=== PATIENT | female | born 1945 | race Caucasian/White ===

== ENCOUNTER 2024-01-11 13:38 | Inpatient (IN) | payer OTHER, SELFPAY ==
[2024-01-11] VITALS (9 sets, daily range): BP systolic 103–169; BP diastolic 58–102
--- NOTE | 2024-01-11 10:59 | ED.GENMED ---
History of Present Illness
General
Chief Complaint: Suicidal Ideation
Source: patient, ambulance crew and police
Time Seen by Provider: 01/11/24 10:45
History of Present Illness
History of Present Illness:
78-year-old female presenting to the ER with EMS and police for evaluation after patient attempted to overdose on Lasix and Farxiga tablets. EMS states that the bottles were the sisters tablets and they were last filled on November 26. There was a
total of 15 tablets of Lasix (80 mg) and 30 tablets of Farxiga (10 mg) but patient is unsure as to the quantity of how much she took of each medication. Patient notes that her sister is noncompliant with the medication which is why there is still a
significant quantity of pills. Patient states that for the last week she has been feeling increasingly depressed and suicidal noting that she was about to get evicted and become homeless. EMS also states that patient was holding a knife to her
throat but did not cut herself with the knife. Patient has no complaints at this time other than she has the continuous urge to urinate.
Past History
Past History
ED Past Medical History: Arrthythmia (atrial fib), Cancer (Breast and Cervix), COPD, GERD, HTN, Hypercholesterolemia, Psychiatric (Anxiety) and Other (Diverticulitis, Sciatica, Hiatal hernia, )
ED Past Surgical History: Bowel resection (with Colostomy due to diverticulitis) and Gynecological (D&C, Lumpectomy left)
Social History
Tobacco: Smoker
Alcohol: Occasional
Drug: None
Personal:
Living: with family (Son)
Employment: Retired
Family History
Family History: Other (Noncontributory)
Review of Systems
Review of Systems
All Other Systems: ROS reviewed and negative except as documented in HPI and ROS
Phy Exam
Physical Exam
Physical Exam:
GENERAL: Alert , in no apparent distress
Head: Normocephalic atraumatic
EYE: pupils 3 mm bilateral, clear conjunctiva
NECK: Supple
ENT: o/p clr, mmm.
CARDIAC: Mildly tachycardic, irregularly irregular
LUNGS: Clear breath sounds bilaterally, no acute respiratory distress, no wheezes/rales/rhonchi
ABDOMEN: Soft, without focal tenderness, no r/g, no cvat
NEUROLOGICAL: Alert and oriented x 3
SKIN: Warm and dry, skin intact.
MUSCULOSKELETAL: well perfused.
PSYCH: Normal and appropriate interaction.
Scores
Heart Failure Risk
Heart Failure Risk Score: Not Applicable
Heart Score for Chest Pain Patients
STEMI patient?: Not applicable
Withdrawal Assessment of Alcohol
Withdrawal Assessment Completed?: Not applicable
Course
Orders/Labs/Results
Orders:
Orders
01/11/24 10:52
Electrocardiogram (*1) Urgent
Reason for Study: Chest Pain
01/11/24 10:53
EKG- Treatment ONCE
01/11/24 10:55
Bedside Glucose- Treatment ONCE
01/11/24 11:06
Crisis Consult Urgent
Reason for Consult: SI
1:1 Observation - Suicide/ Violent Behavior As Directed
01/11/24 11:14
Basic Metabolic Panel Urgent
Complete Blood Count/With Diff Urgent
PTT Urgent
Prothrombin Time Urgent
01/11/24 11:30
Urinalysis Reflex To Culture Urgent
Date Specimen was Collected: 01/11/24
Time Specimen was Collected: 11:28
Urine Drug Abuse Screen Urgent
Date Specimen was Collected: 01/11/24
Time Specimen was Collected: 11:29
01/11/24 11:49
Acetaminophen Urgent
Alcohol Urgent
Comprehensive Metabolic Panel Urgent
Salicylate Urgent
Abnormal Lab Results
01/11/24 01/11/24 01/11/24
11:14 11:18 11:30
RBC 5.47 H 10^6/uL
(4.20-5.40)
RDW 15.7 H %
(11.5-14.5)
MPV 11.4 H fL
(7.4-10.4)
Absolute Neuts (auto) 7.1 H 10^3/uL
(1.4-6.5)
Absolute Lymphs (auto) 0.6 L 10^3/uL
(1.2-3.4)
Neutrophils % 85.4 H %
(42.2-75.2)
Lymphocytes % 7.5 L %
(20.5-51.1)
Carbon Dioxide 19 L mmol/L
(30)
BUN 20 H mg/dl
(01-16)
Creatinine
Glucose 125 H mg/dl
(70-99)
Alkaline Phosphatase
Total Protein
Urine Ketones 2+ A
(Negative)
Urine Glucose 1+ A
(Negative)
Salicylates
Acetaminophen
POC Glucose 132 H mg/dl
(70-99)
01/11/24
11:49
RBC
RDW
MPV
Absolute Neuts (auto)
Absolute Lymphs (auto)
Neutrophils %
Lymphocytes %
Carbon Dioxide 18 L mmol/L
(30)
BUN 19 H mg/dl
(01-16)
Creatinine 1.1 H mg/dL
(0.6-1.0)
Glucose 125 H mg/dl
(70-99)
Alkaline Phosphatase 138 H U/L
(38-126)
Total Protein 8.4 H g/dl
(6.3-8.2)
Urine Ketones
Urine Glucose
Salicylates < 1.0 L mg/dl
(2.0-20.0)
Acetaminophen < 10 L ug/ml
(10-30)
POC Glucose
01/11/24 11:14
01/11/24 11:49
Vital Signs
Initial and Last Documented VS:
Initial Vital Signs
Temp Pulse Resp BP Pulse Ox
98.2 F 86 23 169/84 96
01/11/24 11:04 01/11/24 11:04 01/11/24 11:04 01/11/24 11:04 01/11/24 11:04
Last Documented Vital Signs
Temp Pulse Resp BP Pulse Ox
98.2 F 87 26 165/102 95
01/11/24 11:04 01/11/24 12:30 01/11/24 12:30 01/11/24 12:30 01/11/24 12:30
MDM/Problems Addressed
Differential Diagnosis Includes:
Intentional overdose, electrolyte disturbance, no concern for infectious etiology
MDM/Problems Addressed:
78-year-old female presenting the emergency department for intentional overdose. Patient could have taken up to 15 total tablets of 80 mg Lasix and 30 tablets of 10 mg Farxiga. She is currently mildly tachycardic but otherwise hemodynamically
stable. Patient will likely require admission for monitoring of her electrolytes. She will also need psychiatry consult as patient had plan and intent to harm herself. Patient also appears to be in new onset atrial flutter. This can be further
evaluated on an inpatient basis. Lab work ordered. Patient on satellite project site monitor and placed on one-to-one observation.
*Pulse Oximetry
Patient hypoxic: no
*EKG
Interpreted by ED Provider?: Yes
Comparison EKG: changes noted
Heart Rate: 105
Rate: tachycardiac
Rhythm: atrial flutter
[place]: normal axis
Ischemia: no ischemia
*Police Crime Scene Technician Interpretation
Rate: tachycardiac
Rhythm: atrial flutter
*Critical Care Note
Total Time (30-74mins, 75-104mins- exclusive of procedures): Not Applicable
Data Reviewed
Review of Other/Old Records Reveals: Labs
Source: patient
Patient Management
Discussion with other providers: Hospitalist
Escalation/DeEscalation of care consider admission/obs:
Due to concern for electrolyte disturbance and potential renal dysfunction will admit patient for further medical care. Psychiatry can be consulted as patient will likely need further health treatment due to her intentional overdose. Hospitalist
team was notified and accepts for continued evaluation and treatment. Patient remains hemodynamically stable.
ED Attending Note
-
Portions of this chart may have been created with voice recognition software.� Occasional wrong word or��sound alike� substitutions may have occurred due to the inherent limitations of voice recognition software.
Discharge Plan
Departure
Patient Disposition: Admit
Date of Disposition: 01/11/24
Time of Disposition: 11:49
Presentation/result/management discussed w/ accepting MD/DO: Hospitalist
Discharge Problem:
Intentional overdose
Prescriptions:
No Action
alprazolam 0.5 MG tablet
0.5 mg PO DAILYPRN PRN (Reason: anxiety)
hydrochlorothiazide 25 mg Tablet
25 mg PO DAILY
Artificial Tears (PF) Dropperette
1 drp BOTH EYES QIDPRN PRN (Reason: dry)
Interventions
Interventions:
*Risk Screen - Suicide Last Done: 01/11/24 11:05
*General Assessment Last Done: 01/11/24 11:12
*Neglect/Abuse Screening Last Done: 01/11/24 11:12
ED- Fall Risk Assessment Last Done: 01/11/24 11:10
*ED COVID-19 Vaccine History Last Done: 01/11/24 11:10
ED- Cardiac Assessment Last Done: 01/11/24 11:09
ED- Neurological Assessment Last Done: 01/11/24 11:08
ED-Psychological Assessment Last Done: 01/11/24 11:09
ED- Pulmonary Assessment Last Done: 01/11/24 11:08
Discharge Date and Time
Print Language: TAMAZIGHT
[2024-01-11 11:20] LABS: Glucose - Point of Care 132 mg/dl (70-99)
[2024-01-11 11:27] LABS: % Basophils 0.7 % (0-2); % Eosinophils 0.4 % (0-6); % Immature Granulocytes 0.2 % (0-0.5); % Lymphocytes 7.5 % (20.5-51.1); % Monocytes 5.8 % (1.7-9.3); % Neutrophils 85.4 % (42.2-75.2); Absolute Basophils 0.1 10^3/uL (0-0.2); Absolute Lymphocytes 0.6 10^3/uL (1.2-3.4); Absolute Monocytes 0.5 10^3/uL (0.1-0.6); Absolute Neutrophils 7.1 10^3/uL (1.4-6.5); Hematocrit 45.3 % (37.0-47.0); Hemoglobin 15.6 g/dL (12.0-16.0); Mean Corp Hgb Conc. 34.4 g/dL (33.0-37.0); Mean Corpuscular Hgb 28.5 pg (27.0-31.0); Mean Corpuscular Volume 82.8 fL (81.0-99.0); Mean Platelet Volume 11.4 fL (7.4-10.4); Nucleated Red Blood Cells % 0 %; Platelet Count 291 10^3/uL (130-400); Red Blood Cell Count 5.47 10^6/uL (4.20-5.40); Red Cell Dist. Width 15.7 % (11.5-14.5); White Blood Cell Count 8.3 10^3/uL (4.8-10.8)
[2024-01-11 11:31] LABS: INR 1.13; PT 14.6 Sec (11.4-14.6)
[2024-01-11 11:32] LABS: APTT 28.5 Sec (23.4-35.0)
--- NOTE | 2024-01-11 11:34 | EDRN ---
Pt called her sister; her purse is at her sister's
[2024-01-11 11:52] LABS: Blood Urea Nitrogen 20 mg/dl (7-17); Calcium 9.5 mg/dl (8.4-10.2); Carbon Dioxide 19 mmol/L (22-30); Chloride 103 mmol/L (98-107); Glucose 125 mg/dl (70-99); Sodium 137 mmol/L (135-145); eGFR 56.95
[2024-01-11 12:09] LABS: ALT (SGPT) 14 U/L (0-35); AST (SGOT) 25 U/L (14-36); Alkaline Phosphatase 138 U/L (38-126); Blood Urea Nitrogen 19 mg/dl (7-17); Calcium 9.8 mg/dl (8.4-10.2); Carbon Dioxide 18 mmol/L (22-30); Chloride 103 mmol/L (98-107); Glucose 125 mg/dl (70-99); Potassium 3.5 mmol/L (3.5-5.1); Sodium 139 mmol/L (135-145); Total Bilirubin 0.9 mg/dl (0.2-1.3); Total Protein 8.4 g/dl (6.3-8.2)
[2024-01-11 12:14] LABS: Urine Albumin Negative (Neg - Trace); Urine Bilirubin Negative (Negative); Urine Character Clear (Clear); Urine Color Yellow; Urine Glucose 1+ (Negative); Urine Ketone 2+ (Negative); Urine Leukocyte Negative (Negative); Urine Nitrite Negative (Negative); Urine Occult Blood Negative (Negative); Urine Urobilinogen Negative (Neg - 1+); Urine pH 6.5 (5.0-9.0)
[2024-01-11 12:27] LABS: Amphetamines Negative (Negative); Barbiturates Negative (Negative); Benzodiazepines Negative (Negative); Buprenorphine Negative (Negative); Cocaine Negative (Negative); Marijuana Negative (Negative); Methadone Negative (Negative); Methamphetamines Negative (Negative); Opiates Negative (Negative); Phencyclidine Negative (Negative); Tricyclic Antidepressants Negative (Negative)
[2024-01-11 12:30] LABS: Acetaminophen < 10 ug/ml (10-30); Alcohol None Detected; Salicylate < 1.0 mg/dl (2.0-20.0)
--- NOTE | 2024-01-11 13:36 | HPS.HSE ---
Family Physician
-
Family Physician: Emre Gabriel
Chief Complaint
-
Intentional overdose
History of Present Illness
Patient is 78 years old female who presents to the emergency room after reported intentional overdose presumably with Lasix and Farxiga tablets. According to EMS patient took medications belonged to her sister. There was a total of 15 tablets of
Lasix 80 mg in 20 tablets of Farxiga 10 mg filled on November 26. Patient herself unsure amount of medications she ingested. Patient got upset with the message of possible infection and become homeless. EMS also stated the patient was holding a knife
to her throat but had no self-inflicted injuries on arrival.
At the time of my examination patient is calm with no evidence of distress and denies any suicidal ideation. She could not recall name of medications on number of pills she took.
Medical History
Past Medical History
Past Medical History: Reports Arrhythmia, COPD, HTN and Psychiatric (Anxiety)
Past Surgical History: Reports Gynocological and Other (Complicated diverticulitis with abscess and obstruction requiring colostomy)
Social History
Tobacco: Non-smoker
Alcohol: None
Employment: Not Employed
Family History
Family History: Not pertinent
Allergies / Home Medications
Allergies reflects when Allergies were last updated in [employer].
Home Medications with original date entered in [employer]
Allergy/Medication List:
Allergies
Allergy/AdvReac Type Severity Reaction Status Date / Time
lorazepam [From Ativan] Allergy Unknown Verified 02/16/20 06:46
Home Medications
alprazolam 0.5 mg tablet 0.5 mg PO DAILYPRN PRN anxiety 01/23/19
dextran 70-hypromellose eye drops in a dropperette (Artificial Tears (PF) drops in a dropperette) 1 drp BOTH EYES QIDPRN PRN dry 01/11/24
hydrochlorothiazide 25 mg tablet 25 mg PO DAILY 01/11/24
Review of Systems
-
A 12 point ROS was completed and negative except as noted: Yes
Physical Exam
Vital Signs
Vital Signs
Temp Pulse Resp BP Pulse Ox
98.2 F 88 27 139/75 95
01/11/24 11:04 01/11/24 13:15 01/11/24 13:15 01/11/24 13:00 01/11/24 12:30
Physical Exam
General: Well Developed, Well Nourished and No Apparent Distress
HEENT: NormoCephalic, Moist mucous membranes and Atraumatic
Respiratory: Clear
Cardiac: S1/S2 and Regular Rhythm; No Murmur or Rub
GI: Soft, Non Tender, Non Distended and Normal Bowel Sounds; No Organomegaly
Rectal: Deferred by Provider
Musculoskeletal: No Clubbing, No Cyanosis and No Edema
Skin: No Rash
Neuro: Nonfocal/grossly intact
Laboratory Results
-
01/11/24 11:14
01/11/24 11:49
Laboratory Results
PT 14.6 Sec (11.4-14.6) 01/11/24 11:14
INR 1.13 01/11/24 11:14
APTT 28.5 Sec (23.4-35.0) 01/11/24 11:14
Total Bilirubin 0.9 mg/dl (0.2-1.3) 01/11/24 11:49
AST 25 U/L (14-36) 01/11/24 11:49
ALT 14 U/L (0-35) 01/11/24 11:49
Alkaline Phosphatase 138 U/L (38-126) H 01/11/24 11:49
Data Reviewed
-
Lab Data: Labs Reviewed by me
Impression/Plan
-
IMPRESSION:
Intentional overdose reportedly with multiple pills of Lasix and Farxiga.
Increased anion gap metabolic acidosis.
Paroxysmal a flutter on admission ECG
Conditions prior to admission:
Hypertension.
COPD as per history, although not on regimen prior to presentation
History of complicated diverticulitis with colonic obstruction.
Anxiety
PLAN:
Suicidal attempt with intentional overdose.
Currently appropriate with no suicidal ideation.
Continue suicidal precautions
Psychiatry consultation
Continue alprazolam
Intentional overdose with Lasix and Farxiga.
Monitor closely.
Noted with increased anion gap metabolic acidosis.
Continue IV fluids
Follow CMP
Paroxysmal atrial flutter.
Asymptomatic
Most recent echocardiogram 2019 with preserved biventricular function and no valvular abnormalities.
Patient is not on any AV shahla or antiarrhythmics medications prior to admission
Monitor on telemetry
Serial ECG.
Echocardiogram
Essential hypertension
Monitor BP
With reported overdose with loop diuretics and SGLT2 will hold further HCTZ.
Full code.
DVT prophylaxis heparin
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
[2024-01-11] MEDS: NSS 1000 IV (18:10)
[2024-01-11] MEDS: HEPARIN 5000 UNITS SC (20:19)
[2024-01-12 03:00] VITALS: BP 107/72
[2024-01-12] MEDS: NSS 1000 IV ×2 (04:16→17:52)
[2024-01-12 07:02] LABS: % Basophils 1.3 % (0-2); % Eosinophils 2.8 % (0-6); % Immature Granulocytes 0.4 % (0-0.5); % Lymphocytes 16.7 % (20.5-51.1); % Monocytes 9.6 % (1.7-9.3); % Neutrophils 69.2 % (42.2-75.2); Absolute Basophils 0.1 10^3/uL (0-0.2); Absolute Eosinophils 0.2 10^3/uL (0-0.7); Absolute Lymphocytes 1.2 10^3/uL (1.2-3.4); Absolute Monocytes 0.7 10^3/uL (0.1-0.6); Hematocrit 43.9 % (37.0-47.0); Hemoglobin 15.1 g/dL (12.0-16.0); Mean Corp Hgb Conc. 34.4 g/dL (33.0-37.0); Mean Corpuscular Hgb 28.7 pg (27.0-31.0); Mean Corpuscular Volume 83.3 fL (81.0-99.0); Mean Platelet Volume 11.5 fL (7.4-10.4); Nucleated Red Blood Cells % 0 %; Platelet Count 276 10^3/uL (130-400); Red Blood Cell Count 5.27 10^6/uL (4.20-5.40); Red Cell Dist. Width 15.7 % (11.5-14.5); White Blood Cell Count 7.2 10^3/uL (4.8-10.8)
[2024-01-12 07:25] VITALS: BP 136/76
[2024-01-12] MEDS: HEPARIN 5000 UNITS SC ×2 (09:04→21:03)
[2024-01-12 09:27] LABS: ALT (SGPT) 16 U/L (0-35); AST (SGOT) 36 U/L (14-36); Albumin 4.4 g/dl (3.5-5.0); Alkaline Phosphatase 111 U/L (38-126); Blood Urea Nitrogen 29 mg/dl (7-17); Calcium 9.9 mg/dl (8.4-10.2); Carbon Dioxide 25 mmol/L (22-30); Chloride 103 mmol/L (98-107); Glucose 88 mg/dl (70-99); Potassium 3.2 mmol/L (3.5-5.1); Sodium 139 mmol/L (135-145); Total Bilirubin 0.9 mg/dl (0.2-1.3); Total Protein 7.5 g/dl (6.3-8.2); eGFR 28.13
--- NOTE | 2024-01-12 10:39 | CM ---
Addendum entered by Grace Wilks 01/12/24 11:32:
quality systems manager checked with patient's insurance benefit and [employer] and inpatient mental health benefit is for first 1-4 days $475 copay and then day 5-90, $0 copay, patient made aware.
Original Note:
quality systems manager reviewed patient's chart and met with patient and patient lives with her son with schizophrenia at [facility], on the 5th floor, elevator accessible building. Patient is independent with adl's and ambulation, patient was
seen by crisis in the ED and per notes there is a back up 302. Patient reports that she does not know what happened yesterday and she regrets upsetting her family.
Pharmacy: [facility]
PCP: Dr. Gabriel
Plan: quality systems manager will await updated notes from psychiatry for a plan for patient.
--- NOTE | 2024-01-12 10:49 | PTCARENOTE ---
Pt alert/calm/cooperative/conversive. Says she thinks she had a psychotic break yesterday and was not herself. Sister at bedside and says pt is back to baseline mentation. Psychiatry in room now speaking w/ pt and family. 1:[address]
[2024-01-12 11:10] VITALS: BP 133/61
--- NOTE | 2024-01-12 13:43 | W.PN.UPDATE ---
Update Note
Progress Note Update
patient seen chart reviewed. discussed w nursing. sister at bedside provided some history. she reports about a year ago patient diagnosed as having 'mild dementia' she had despite this been doing well overall until very recently. she started to
become preoccupied with money owed to [employer]. sister unaware that this is true and she found checks written for five hundred payable to [employer]. then she started becoming obsessed w being evicted although she is NOT being evicted. the patient did
acknowledge that 'something ' was happening to her mind and acknowledged that yesterday she was truly suicidal. today however she says she has come to her senses and no longer wants to but insists she is being evicted still. sister and i
reassured her this was not the case and i explained that this fixed belief which defies what is real is a delusion and there are meds for this. the patient agreed to try small doses of risperdal o.5 mg q day side effect risks vs benefits explained.
she also has abnormal labs (bun cr K) and ecg (long qtc) which were explained to her. 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
[2024-01-12] MEDS: KCL 40 MEQ PO (14:57)
[2024-01-12 15:20] VITALS: BP 112/81
--- NOTE | 2024-01-12 17:50 | W.PN.HOSP.TC ---
Today's Communication/Plan
-
Continue suicidal precautions
Risperdal.
Placement to inpatient psych
Monitor on telemetry for recurrent flutter.
Continue IV fluids and follow-up BMP along with urine output.
Assessment / Plan
Assessment / Plan
IMPRESSION:
Intentional overdose reportedly with multiple pills of Lasix and Farxiga.
Increased anion gap metabolic acidosis.
Paroxysmal a flutter on admission ECG
BUDDY
Prolonged QT
Conditions prior to admission:
Hypertension.
COPD as per history, although not on regimen prior to presentation
History of complicated diverticulitis with colonic obstruction.
Anxiety
PLAN:
Suicidal attempt with intentional overdose.
Currently appropriate with no suicidal ideation.
Continue suicidal precautions
Psychiatry consultation with concern for. State
Initiated on Risperdal
Continue alprazolam
Intentional overdose with Lasix and Farxiga.
Acute kidney injury secondary to above
Noted with increased anion gap metabolic acidosis. Improved
Continue IV fluids
Follow CMP
Paroxysmal atrial flutter.
Repeated EKG with sinus rhythm first-degree AV block.
Monitor further
Noted QTc prolongation
Echocardiogram 01/11 with LVEF of 75% normal RV no significant valvular abnormalities.
Patient is not on any AV shahla or antiarrhythmics medications prior to admission
Monitor on telemetry
Serial ECG.
Essential hypertension
Monitor BP
With reported overdose with loop diuretics and SGLT2 will hold further HCTZ.
Full code.
DVT prophylaxis heparin
Anticipated Discharge: 24 - 48 hours
Subjective/Interval History
-
Date of Service: January 12, 2024
Objective Data
-
Labs:
Laboratory Results
01/12/24 01/12/24
06:52 08:25
WBC 7.2
Hgb 15.1
Hct 43.9
Plt Count 276
Sodium Cancelled 139
Potassium Cancelled 3.2 L
Chloride Cancelled 103
Carbon Dioxide Cancelled 25
BUN Cancelled 29 H
Creatinine Cancelled 1.8 H
Glucose Cancelled 88
Calcium Cancelled 9.9
Total Bilirubin Cancelled 0.9
AST Cancelled 36
ALT Cancelled 16
Alkaline Phosphatase Cancelled 111
Vital Signs:
Vital Signs
Temp Pulse Resp BP Pulse Ox
97.9 F 88 18 112/81 96
01/12/24 15:20 01/12/24 15:20 01/12/24 15:20 01/12/24 15:20 01/12/24 15:20
I&O
01/11/24 01/12/24 01/13/24
06:59 06:59 06:59
Intake Total 1200 / 1200 480 / 480
Output Total 1750 / 1750 500 / 500
Balance -550 / -550 -20 / -20
Physical Exam
-
General: Well Developed and No Apparent Distress
HEENT: Normocephalic, Atraumatic and Moist Mucous Membranes
Respiratory: Clear to Auscultation
Cardiac: Regular Rhythm and S1/S2; Negative Murmur, Rub or Gallop
GI: Soft, Nontender, Nondistended and Normal Bowel Sounds; Negative Organomegaly
Rectal: Deferred by Provider
Musculoskeletal: No Clubbing, No Cyanosis and No Edema
Skin: Negative Rash
Neuro: Nonfocal/Grossly Intact
[2024-01-12 19:05] VITALS: BP 131/48
[2024-01-12] MEDS: RISPERDAL 0.5 MG PO (21:45)
[2024-01-12 23:06] VITALS: BP 134/92
[2024-01-13 03:00] VITALS: BP 134/85
[2024-01-13] MEDS: NSS 1000 IV ×3 (04:35→23:59)
[2024-01-13 07:00] VITALS: BP 137/64
[2024-01-13 08:36] LABS: Blood Urea Nitrogen 31 mg/dl (7-17); Calcium 8.7 mg/dl (8.4-10.2); Carbon Dioxide 19 mmol/L (22-30); Chloride 111 mmol/L (98-107); Glucose 84 mg/dl (70-99); Potassium 3.2 mmol/L (3.5-5.1); Sodium 140 mmol/L (135-145)
[2024-01-13] MEDS: HEPARIN 5000 UNITS SC ×2 (08:56→20:36)
[2024-01-13 11:00] VITALS: BP 147/56
[2024-01-13] MEDS: KCL 40 MEQ PO (11:00)
[2024-01-13] MEDS: NICODERM TRANSDERMAL 14 MG TRANSDERM (11:00)
--- NOTE | 2024-01-13 12:32 | W.PN.UPDATE ---
Update Note
Progress Note Update
patient seen chart reviewed. friend at bedside. the patient is calmer but remains convinced that she is being evicted and feels some urgency about this issue. friend was very supportive and told patient his is simply not true although patient was
not convinced. patient insists eviction notice orders her out by may 03. we told her there is then plenty of time to work this out. discussed w dr navarrete need angi here through given medical issues. on monday a decision will be made
whether she needs psych hosp which sister has said they can afford (large copay) the patient tolerating hs risperdal will consider in to one mg tomorrow. continue w one to one for now. patient was wanting to go outside for a cigarette....has
nicotine patch now.
--- NOTE | 2024-01-13 14:41 | W.PN.HOSP.TC ---
Today's Communication/Plan
-
Continue IV fluids monitoring urine output and creatinine
Continue cardiac monitoring for possible atrial flutter.
Assessment / Plan
Assessment / Plan
IMPRESSION:
Intentional overdose reportedly with multiple pills of Lasix and Farxiga.
Increased anion gap metabolic acidosis.
Paroxysmal a flutter on admission ECG
BUDDY
Prolonged QT
Conditions prior to admission:
Hypertension.
COPD as per history, although not on regimen prior to presentation
History of complicated diverticulitis with colonic obstruction.
Anxiety
PLAN:
Suicidal attempt with intentional overdose.
Currently appropriate with no suicidal ideation.
Continue suicidal precautions
Psychiatry consultation with concern for. State
Initiated on Risperdal
Continue alprazolam
Intentional overdose with Lasix and Farxiga.
Acute kidney injury secondary to above
Creatinine trending down 1.8�1.6.
Noted with increased anion gap metabolic acidosis. Improved
Continue IV fluids
Follow CMP
Concern for paroxysmal atrial flutter on admission
Repeated EKG with sinus rhythm first-degree AV block.
Monitor further
Noted QTc prolongation
Echocardiogram 01/11 with LVEF of 75% normal RV no significant valvular abnormalities.
Patient is not on any AV shahla or antiarrhythmics medications prior to admission
Monitor on telemetry with so far patient remains in sinus rhythm.
Essential hypertension
Monitor BP
With reported overdose with loop diuretics and SGLT2 will hold further HCTZ.
Full code.
DVT prophylaxis heparin
Anticipated Discharge: 24 - 48 hours
Subjective/Interval History
-
Date of Service: January 13, 2024
Objective Data
-
Labs:
Laboratory Results
01/13/24
07:38
Sodium 140
Potassium 3.2 L
Chloride 111 H
Carbon Dioxide 19 L
BUN 31 H
Creatinine 1.6 H
Glucose 84
Calcium 8.7
Vital Signs:
Vital Signs
Temp Pulse Resp BP Pulse Ox
97.5 F 73 18 147/56 96
01/13/24 11:00 01/13/24 11:00 01/13/24 11:00 01/13/24 11:00 01/13/24 11:00
I&O
01/12/24 01/13/24 01/14/24
06:59 06:59 06:59
Intake Total 1200 / 1200 1680 / 1680 840 / 840
Output Total 1750 / 1750 500 / 500
Balance -550 / -550 1180 / 1180 840 / 840
Physical Exam
-
General: Well Developed and No Apparent Distress
HEENT: Normocephalic, Atraumatic and Moist Mucous Membranes
Respiratory: Clear to Auscultation
Cardiac: Regular Rhythm and S1/S2; Negative Murmur, Rub or Gallop
GI: Soft, Nontender, Nondistended and Normal Bowel Sounds; Negative Organomegaly
Rectal: Deferred by Provider
Musculoskeletal: No Clubbing, No Cyanosis and No Edema
Skin: Negative Rash
Neuro: Nonfocal/Grossly Intact
[2024-01-13 15:00] VITALS: BP 138/53
[2024-01-13 19:27] VITALS: BP 161/69
[2024-01-13] MEDS: RISPERDAL 0.5 MG PO (20:36)
[2024-01-13 23:14] VITALS: BP 162/77
[2024-01-14 03:04] VITALS: BP 152/69
[2024-01-14 06:54] VITALS: BP 142/84
[2024-01-14 07:20] VITALS: BP 141/80
[2024-01-14 08:26] LABS: Blood Urea Nitrogen 19 mg/dl (7-17); Calcium 9.2 mg/dl (8.4-10.2); Carbon Dioxide 23 mmol/L (22-30); Chloride 106 mmol/L (98-107); Glucose 90 mg/dl (70-99); Potassium 3.2 mmol/L (3.5-5.1); Sodium 142 mmol/L (135-145)
[2024-01-14] MEDS: HEPARIN 5000 UNITS SC ×2 (08:38→21:09)
[2024-01-14] MEDS: NICODERM TRANSDERMAL 14 MG TRANSDERM (08:38)
[2024-01-14 11:26] VITALS: BP 145/79
--- NOTE | 2024-01-14 11:35 | W.PN.HOSP.TC ---
Today's Communication/Plan
-
Replete K
DC planning
Assessment / Plan
Assessment / Plan
IMPRESSION:
Intentional overdose reportedly with multiple pills of Lasix and Farxiga.
Increased anion gap metabolic acidosis.
Paroxysmal a flutter on admission ECG
BUDDY
Prolonged QT
Hypokalemia
Conditions prior to admission:
Hypertension.
COPD as per history, although not on regimen prior to presentation
History of complicated diverticulitis with colonic obstruction.
Anxiety
PLAN:
Suicidal attempt with intentional overdose.
Currently appropriate with no suicidal ideation.
Continue suicidal precautions
Psychiatry consultation with concern for. State
Initiated on Risperdal
Continue alprazolam
Intentional overdose with Lasix and Farxiga.
Acute kidney injury secondary to above
Creatinine trending down 1.8�1.1.
Noted with increased anion gap metabolic acidosis. Improved
Continue IV fluids
Follow CMP
Concern for paroxysmal atrial flutter on admission
Repeated EKG with sinus rhythm first-degree AV block.
Monitor further
Noted QTc prolongation
Echocardiogram 01/11 with LVEF of 75% normal RV no significant valvular abnormalities.
Patient is not on any AV shahla or antiarrhythmics medications prior to admission
Monitor on telemetry with so far patient remains in sinus rhythm.
Essential hypertension
Monitor BP
With reported overdose with loop diuretics and SGLT2 will hold further HCTZ.
Full code.
DVT prophylaxis heparin
Start dc planning - psych recs of possible inpt psych tx noted. Will follow psych recs.
Anticipated Discharge: 24 - 48 hours
Subjective/Interval History
-
Date of Service: January 14, 2024
No overnight events. One-to-one present at bedside.
Objective Data
-
Labs:
Laboratory Results
01/14/24
06:51
Sodium 142
Potassium 3.2 L
Chloride 106
Carbon Dioxide 23
BUN 19 H
Creatinine 1.1 H
Glucose 90
Calcium 9.2
Vital Signs:
Vital Signs
Temp Pulse Resp BP Pulse Ox
97.8 F 73 16 145/79 95
01/14/24 11:26 01/14/24 11:26 01/14/24 11:26 01/14/24 11:26 01/14/24 11:26
I&O
01/13/24 01/14/24 01/15/24
06:59 06:59 06:59
Intake Total 1680 / 1680 2410 / 2410
Output Total 500 / 500
Balance 1180 / 1180 2410 / 2410
Review of Systems
-
Respiratory: Denies Trouble Breathing
Cardiac: Denies Chest Pain or Palpitations
Abdomen/GI: Denies Abdominal Pain, Nausea or Vomiting
Neuro: Denies Dizzy
Physical Exam
-
General: No Apparent Distress
HEENT: Moist Mucous Membranes
Respiratory: Non Labored Respirations; Negative Accessory Resp Muscle Use
Cardiac: Regular Rhythm and S1/S2
Neuro: AO x 3
Psych: Calm; Negative Agitated
Data Reviewed
-
Labs: Labs Reviewed by me
[2024-01-14] MEDS: KCL 40 MEQ PO (13:10)
--- NOTE | 2024-01-14 13:28 | W.PN.UPDATE ---
Update Note
Progress Note Update
patient seen chart reviewed. patient is in better spirits today but she is still very much preooccupied with the eviction issue although she has been assured by her sister and other family that she is not in imminent danger of eviction. her
preoccupation seems to me to be delusional in nature. i called her sister to verify this and sister told me she is absolutely NOT being addicted. will increase to one mg q hs risperdal. dr root will decide tomorrow whether patient needs psych
hospital if at that point she is medically cleared. family has said she can afford the copay for hospital if that is deemed needed. hospitalist still working on optimizing potassium. kidney function is improving.
[2024-01-14 15:10] VITALS: BP 154/74
[2024-01-14] MEDS: NSS 1000 IV (17:49)
[2024-01-14] MEDS: RISPERDAL 0.5 MG PO (21:09)
[2024-01-14 23:36] VITALS: BP 134/95
[2024-01-15] MEDS: NSS 1000 IV (05:52)
[2024-01-15 07:45] VITALS: BP 144/85
--- NOTE | 2024-01-15 09:03 | CM ---
Chart reviewed and mental health case manager will with follow with psychiatry notes and recommendations. Labs at still pending today.
Plan; To follow with patient progress and psychiatry recommendations, mental health case manager did reach out to Howie in admissions at [facility], but he believes that they are out of network with insurance.
[2024-01-15 09:37] LABS: Blood Urea Nitrogen 14 mg/dl (7-17); Calcium 9.5 mg/dl (8.4-10.2); Carbon Dioxide 22 mmol/L (22-30); Chloride 106 mmol/L (98-107); Glucose 93 mg/dl (70-99); Potassium 3.4 mmol/L (3.5-5.1); Sodium 141 mmol/L (135-145); eGFR 56.95
[2024-01-15] MEDS: HEPARIN 5000 UNITS SC ×2 (09:48→19:48)
[2024-01-15] MEDS: NICODERM TRANSDERMAL TRANSDERM (09:48)
--- NOTE | 2024-01-15 10:15 | WOUNDNOTE ---
BOOGIE RN NOTE: Consulted for patient for Colostomy care. Patient had Colostomy done in 2019 here, has no supplies, using Ruth Ann 2 piece drainable appliance. Patient reports she is independent with care and changes it 3 x per day. Was not able to
clarify for me when last changed or if she means empties 3 x per day. Stoma is pink, no leakage noted. Son at bedside who lives with patient, confirmed his mom changed it recently in last few days. Patient able to turn to side, sacrum and heels
intact. Called [facility] for ostomy supplies, and brought into rm. Will update care plan, nursing can change q 3-4 days and prn leakage. Updated nurse Sudha.
[2024-01-15] MEDS: KCL 270 MEQ IV (11:17)
[2024-01-15 14:50] VITALS: BP 111/58
--- NOTE | 2024-01-15 15:16 | W.PN.UPDATE ---
Update Note
Progress Note Update
Pt seen, chart reviewed, discussed nursing staff and family preservation caseworker. Pt alert, calm, cooperative, sitting up partially out of bed. No agitation, no overt psychosis. Pt c/o feeling some depression, denies suicidal ideation. Staff reports persistent
thought she will be evicted despite family's reassurance. Police initially brought pt in, and noted that they confirmed with Deisy Rogers that pt is not being evicted. Pt taking Risperidone 0.5 mg HS started here 01/12/24, with no apparent side
effects. QTc was prolonged on last EKG 01/12/24. Pt discussed being on antidepressants in the past, believes Zoloft was helpful. Pt partially oriented, noted to be forgetful per nursing, forget family was in earlier.
Imp: Dementia, mild, with delusion about being evicted
Unspecified depression, post OD, now consistently denying any SI
Rec: continue Risperidone 0.5 mg HS, appears to be helping, needs more time for full effect
Check EKG, consider re-trial of Zoloft; 1:1 no longer appears necessary
Outpatient psych treatment/med mgt, when medically stable
--- NOTE | 2024-01-15 15:19 | W.PN.HOSP.TC ---
Today's Communication/Plan
-
Discharge planning to comment
Assessment / Plan
Assessment / Plan
NAD, resting comfortably in bed
Scleral anicteric
Moist mucous membranes
No JVD
CTA bilateral
Normal S1-S2 no murmurs
Soft nontender nondistended bowel sounds active
No peripheral pitting edema
Moves extremities spontaneously
AAO
Intentional overdose, 302, one-to-one, psychiatry following, cannot leave AMA
Hypokalemia replete
BUDDY resolved
Prolonged QT avoid agents that prolong
Begin discharge planning to behavioral facility
Anticipated Discharge: Within 24 hours
Subjective/Interval History
-
Date of Service: January 15, 2024
Seen and examined. Family. No new complaints. No acute overnight events.
Objective Data
-
Labs:
Laboratory Results
01/15/24
08:24
Sodium 141
Potassium 3.4 L
Chloride 106
Carbon Dioxide 22
BUN 14
Creatinine 1.0
Glucose 93
Calcium 9.5
Vital Signs:
Vital Signs
Temp Pulse Resp BP Pulse Ox
97.3 F 66 19 111/58 92
01/15/24 14:50 01/15/24 14:50 01/15/24 14:50 01/15/24 14:50 01/15/24 14:50
I&O
01/14/24 01/15/24 01/16/24
06:59 06:59 06:59
Intake Total 2409
Balance 2409
[2024-01-15] MEDS: XANAX 0.25 MG PO (17:29)
[2024-01-15] MEDS: RISPERDAL 0.5 MG PO (21:57)
[2024-01-15 23:05] VITALS: BP 142/79
[2024-01-16] MEDS: HEPARIN 5000 UNITS SC ×2 (07:32→19:55)
[2024-01-16] MEDS: NICODERM TRANSDERMAL 14 MG TRANSDERM (07:32)
[2024-01-16 07:50] VITALS: BP 128/65
--- NOTE | 2024-01-16 09:28 | W.PN.HOSP.TC ---
Today's Communication/Plan
-
dispo plannigng with cm/sw
Assessment / Plan
Assessment / Plan
NAD, resting comfortably in bed
Scleral anicteric
Moist mucous membranes
No JVD
CTA bilateral
Normal S1-S2 no murmurs
Soft nontender nondistended bowel sounds active
No peripheral pitting edema
Moves extremities spontaneously
AAO
Intentional overdose, 302, one-to-one, psychiatry following, cannot leave AMA
-As of 01/15/24, psychiatry does not believe through to his require, does not believe one-to-one is required, recommend outpatient psychiatry follow-up
-Repeat EKG pending to assess QTc as on risperidone
-Per psychiatry will require additional time on current dose of risperidone to see effects3
-Intentional overdose in the setting of dementia with concerns of being affected however per family who is sitting at bedside this is not the case as she was up-to-date on her bills.
--Likely requires to live with someone or needs additional assistance at home.
-Will have physical therapy and Occupational Therapy evaluate
Hypokalemia replete
BUDDY resolved
Prolonged QT avoid agents that prolong
PT/OT consulted
Continue risperidone, psych follow-up as outpatient
Anticipated Discharge: Within 24 hours
Subjective/Interval History
-
Date of Service: January 16, 2024
Seen and examined. No new complaints. No acute overnight events.
Sitting appetite.
Does not want to hurt herself or anyone else around her
Objective Data
-
Vital Signs:
Vital Signs
Temp Pulse Resp BP Pulse Ox
97.4 F 67 18 128/65 94
01/16/24 07:50 01/16/24 07:50 01/16/24 07:50 01/16/24 07:50 01/16/24 07:50
I&O
01/15/24 01/16/24 01/17/24
06:59 06:59 06:59
Intake Total 1779 1280 / 1280
Balance 1779 1280 / 1280
--- NOTE | 2024-01-16 12:12 | CM ---
Addendum entered by Grace Wilks 01/16/24 14:48:
manager investment banking reviewed updated notes on patient's chart and patient to return to her apartment at [facility] at discharge recommendation is for home health, [facility], [facility] and [facility] homecare agencies. [facility]
Addendum entered by Grace Wilks 01/16/24 14:40:
manager investment banking sent a referral to [facility] visiting nurses.
Original Note:
manager investment banking reviewed patient's chart and spoke with nursing and per update psychiatry notes 1:1 has been discharge and plan is to home with outpatient treatment. manager investment banking reached out to patient's insurance to check benefit and outpatient
therapy has a copay of $45 patient has been made aware. manager investment banking also reviewed possible visiting nurses at discharge and [facility] have seen patient in the past and [facility] liaison has been contacted.
Plan; Home with [facility] back to [facility].
[2024-01-16 14:18] VITALS: BP 141/70; PULSE 67; O2SAT 98
[2024-01-16 14:20] VITALS: BP 141/70; PULSE 69; O2SAT 97
[2024-01-16 14:50] VITALS: BP 141/79
--- NOTE | 2024-01-16 14:57 | W.PN.UPDATE ---
Update Note
Progress Note Update
Pt seen walking in the hallway with nursing staff, cooperating with PT assessment, calm, following directions. Reviewed with staff, who report pt continues to have fixed idea that she owes money or today that she stole money and has to pay it back.
Pt is alert, with sensorium intact, oriented x 1 to self, at times able to state she is in [facility].
Imp: Dementia, mild, with delusion about being evicted or owing money
Unspecified depression, post OD, now consistently denying any SI; may be contributing to negative fixed ideas
Rec: continue Risperidone 0.5 mg HS, appears to be helping, needs more time for full effect
will start re-trial of Sertraline for depression
Outpatient psych treatment/med mgt, when medically stable
[2024-01-16] MEDS: RISPERDAL 0.5 MG PO (22:11)
[2024-01-16 23:19] VITALS: BP 151/97
--- NOTE | 2024-01-17 03:03 | DOWNTIME ---
There was a [employer] Client Mortgage Analyst Downtime on 01/17/2024 from 0100 to 01/17/2024 at 0255. Downtime documentation of patient's care, including medication administrations, has been reconciled in the electronic record per guidelines. Refer to the
patient's paper chart under the miscellaneous tab to see printed paper medication records and downtime forms.
[2024-01-17] MEDS: ZOLOFT 25 MG PO (07:37)
[2024-01-17] MEDS: NICODERM TRANSDERMAL 14 MG TRANSDERM (07:37)
[2024-01-17] MEDS: HEPARIN 5000 UNITS SC ×2 (07:37→19:34)
[2024-01-17 07:39] VITALS: BP 165/92
--- NOTE | 2024-01-17 09:21 | W.PN.HOSP.TC ---
Today's Communication/Plan
-
repeat ekg to assess qtc
will need outpatient psych
sw/cm to aid in dispo
Assessment / Plan
Assessment / Plan
NAD, resting comfortably in bed
Scleral anicteric
Moist mucous membranes
No JVD
CTA bilateral
Normal S1-S2 no murmurs
Soft nontender nondistended bowel sounds active
No peripheral pitting edema
Moves extremities spontaneously
AAO
Presented with intentional overdose, initially was on 302 however this was discharged as it was felt by psychiatry she was not a harm to herself. However today began asking for a knife to hand her life therefore suicidal ideations. 302 back in
chart.
Suicidal ideation 302, one-to-one, psychiatry following, cannot leave AMA
Hypokalemia replete
BUDDY resolved
Prolonged QT avoid agents that prolong
Will need AIP
Anticipated Discharge: 24 - 48 hours
Subjective/Interval History
-
Date of Service: January 17, 2024
Seen and examined. No new complaints. No acute overnight events.
No suicidal homicidal ideations when I saw her this morning
However reviewing her chart it appears that she was reevaluated by psychiatry at 1:40 PM and with concerns of suicidal ideation and asking for a knife to end her life. Through to [facility] for acute inpatient psych
Objective Data
-
Vital Signs:
Vital Signs
Temp Pulse Resp BP Pulse Ox
97.9 F 65 20 165/92 97
01/17/24 07:39 01/17/24 07:39 01/17/24 07:39 01/17/24 07:39 01/17/24 07:39
I&O
01/16/24 01/17/24 01/18/24
06:59 06:59 06:59
Intake Total 1280 / 1280 550 / 550
Balance 1280 / 1280 550 / 550
--- NOTE | 2024-01-17 09:53 | W.PN.UPDATE ---
Addendum entered and electronically signed by Shayy Garland MD 01/17/24 12:04:
spoke at length w cm. they will need insurance cards to secure hospital bed. called sister. no answer left message.
Original Note:
Update Note
Progress Note Update
patient seen chart reviewed. spoke to nursing. the patient remains with a fixed delusion that she is losing her appartment and that 'no one can help me.' noted dr root started zoloft. the patient admitted to me that she still has suicidal
thoughts but says she will not act on them here. i will call sister rogers later today to discuss. if family does not want hospital (high cost w her insurance) and they are willing to keep a close eye that might be workable although i am leaning
in favor of psych hospital when she is medically cleared.
--- NOTE | 2024-01-17 13:39 | W.PN.UPDATE ---
Update Note
Progress Note Update
received message from [facility] that patient asking for a knife to end her life. this reinforces my impression this am that she needs [facility]. will order one to one for now and continue to try to reach sister. there is a backup 302 if patient
says she wants to leave but since coming here she has not threatened to leave and has agreed to remain.
--- NOTE | 2024-01-17 13:45 | PTCARENOTE ---
pt requires an in person 1:1
Pt came out of her room asking for a knife. When asked what it was for, the pt got silent and didn't want to answer. When finally the pt answered she stated that she wanted to go outside to, 'kill myself.'
Charge nurse aware and yard labor supervisor was contacted for a in person 1:1
--- NOTE | 2024-01-17 14:28 | CM ---
eye clinic manager reviewed patient's chart and patient has been placed back on 1:1, per psychiatry plan is for inpatient treatment, case assistant reached out to [facility] and they had requested a copy of patient's medical cards however patient and
sister unable to provide copy. eye clinic manager spoke with admissions at [facility] and they cannot accept patient. eye clinic manager will contact [facility], [facility], [facility], [facility],
[facility], and [facility].
Plan; Inpatient psychiatric placement.
[2024-01-17 15:27] VITALS: BP 111/73
[2024-01-17] MEDS: RISPERDAL 0.5 MG PO (21:27)
[2024-01-17 22:45] VITALS: BP 153/88
[2024-01-18 07:00] VITALS: BP 132/80
[2024-01-18] MEDS: ZOLOFT 25 MG PO (08:17)
[2024-01-18] MEDS: NICODERM TRANSDERMAL 14 MG TRANSDERM (08:17)
[2024-01-18] MEDS: HEPARIN 5000 UNITS SC ×2 (08:18→21:17)
[2024-01-18] MEDS: XANAX 0.25 MG PO (10:30)
--- NOTE | 2024-01-18 10:35 | CM ---
Addendum entered by Grace Wilks 01/18/24 17:21:
Additional referrals sent to [facility], and [facility].
Addendum entered by Grace Wilks 01/18/24 12:18:
[facility] have denied patient
Addendum entered by Grace Wilks 01/18/24 11:27:
manager training received calls from [facility] admissions and they have denied patient too medically complex per admissions at [facility] they have denied patient as patient is too medically complex and has colostomy bag,
[facility] will not accept patient from other facilities, and [facility] admissions state that they have only 20 beds available on a 40 bed unit due to renovations and they feel it is unlikely that a bed will open up for patient. Per
admissions at [facility] they only accept from their crisis unit.
Original Note:
manager training spoke with patient's sister, Sue this am and after a long conversation patient's sister she is now aware and agreeable to a plan for patient. Patient will need inpatient psychiatric stay, and then plan is for patient to return to
her apartment at [facility]. Referrals will be sent to the following facilities, [facility] has declined patient.
[facility]
[place]
[facility]
Plan; Psychiatric placement in patient facility.
--- NOTE | 2024-01-18 12:13 | W.PN.UPDATE ---
Update Note
Progress Note Update
patient seen chart reviewed. spoke to nsg and cm. the patient had episode yesterday asking for knife with which to kill self and one to one tells me she spoke of suicide this am. she also was talking about leaving last night. cm is actively
searching for a psych bed at this point. patient is pleasant and cooperative at this moment. she told me 'i think i had a breakdown'. i agreed w her and told her i don't think the breakdown is over and recommend psych hospital which we are
searching for. she did not disagree. would continue w current meds will consider inc in risperdal and zoloft in the near future.
--- NOTE | 2024-01-18 13:48 | W.PN.HOSP.TC ---
Today's Communication/Plan
-
Repeat BMP in the AM
EKG in the AM for QTC
AIP
Psych follow up
Assessment / Plan
Assessment / Plan
NAD, resting comfortably in bed
Scleral anicteric
Moist mucous membranes
No JVD
CTA bilateral
Normal S1-S2 no murmurs
Soft nontender nondistended bowel sounds active
No peripheral pitting edema
Moves extremities spontaneously
AAO
Presented with intentional overdose, initially was on 302 however this was discharged as it was felt by psychiatry she was not a harm to herself. However today began asking for a knife to hand her life therefore suicidal ideations. 302 back in
chart.
Suicidal ideation 302, one-to-one, psychiatry following, cannot leave AMA
Hypokalemia replete. Repeat BMP tomorrow a.m.
BUDDY resolved
Prolonged QT avoid agents that prolong. Check EKG tomorrow AM
Will need AIP
Anticipated Discharge: 24 - 48 hours
Subjective/Interval History
-
Date of Service: January 18, 2024
Seen and examined. One-to-one sitting at bedside. Reports that she still wants to hurt herself but when I asked Ms. Chao she denies wanting to hurt herself.
Objective Data
-
Vital Signs:
Vital Signs
Temp Pulse Resp BP Pulse Ox
97.8 F 81 18 132/80 97
01/18/24 07:00 01/18/24 07:00 01/18/24 07:00 01/18/24 07:00 01/18/24 07:00
I&O
01/17/24 01/18/24 01/19/24
06:59 06:59 06:59
Intake Total 550 / 550 480 / 480
Output Total 480 / 480
Balance 550 / 550 -480 / -480 480 / 480
[2024-01-18 15:00] VITALS: BP 164/83
[2024-01-18] MEDS: HALDOL 1 MG IV (15:41)
[2024-01-18] MEDS: RISPERDAL 0.5 MG PO (21:19)
[2024-01-18 23:00] VITALS: BP 154/72
[2024-01-19] MEDS: HEPARIN 5000 UNITS SC (07:54)
[2024-01-19] MEDS: ZOLOFT 25 MG PO (07:55)
[2024-01-19] MEDS: NICODERM TRANSDERMAL 14 MG TRANSDERM (07:55)
[2024-01-19 08:01] VITALS: BP 104/47
--- NOTE | 2024-01-19 09:16 | W.PN.HOSP.TC ---
Today's Communication/Plan
-
for aip
302, 1:1, cannot leave ama
prn haldol
check ekg for qtc
redirect using sister
Assessment / Plan
Assessment / Plan
NAD, resting comfortably in bed
Scleral anicteric
Moist mucous membranes
No JVD
CTA bilateral
Normal S1-S2 no murmurs
Soft nontender nondistended bowel sounds active
No peripheral pitting edema
Moves extremities spontaneously
AAO
Presented with intentional overdose, initially was on 302 however this was discharged as it was felt by psychiatry she was not a harm to herself. However today began asking for a knife to hand her life therefore suicidal ideations. 302 back in
chart.
Suicidal ideation 302, one-to-one, psychiatry following, cannot leave AMA
Hypokalemia replete. Repeat BMP tomorrow a.m.
BUDDY resolved
CKD 3a-3b, monitor UOP, avoid nephrotoxins and hypotension, outpatient neph follow up, no indication for billposter/alkali therapy.
Prolonged QT avoid agents that prolong. Check EKG tomorrow AM
Will need AIP
-cxr and covid ordered
Anticipated Discharge: Within 24 hours
Subjective/Interval History
-
Date of Service: January 19, 2024
seen and examined. no new compalitns
sister at bedside.
tearful
she understands that she is going to aip
Objective Data
-
Labs:
Laboratory Results
01/19/24
07:26
Sodium Pending
Potassium Pending
Chloride Pending
Carbon Dioxide Pending
BUN Pending
Creatinine Pending
Glucose Pending
Calcium Pending
Vital Signs:
Vital Signs
Temp Pulse Resp BP Pulse Ox
98.3 F 75 18 104/47 97
01/19/24 08:01 01/19/24 08:01 01/19/24 08:01 01/19/24 08:01 01/19/24 08:01
I&O
01/18/24 01/19/24 01/20/24
06:59 06:59 06:59
Intake Total 480 / 480 100 / 100
Output Total 480 / 480
Balance -480 / -480 480 / 480 100 / 100
[2024-01-19 09:45] LABS: Blood Urea Nitrogen 26 mg/dl (7-17); Calcium 9.4 mg/dl (8.4-10.2); Carbon Dioxide 25 mmol/L (22-30); Chloride 103 mmol/L (98-107); Estimated Creatinine Clearance 30 ml/min; Glucose 106 mg/dl (70-99); Potassium 3.1 mmol/L (3.5-5.1); Sodium 139 mmol/L (135-145); eGFR 38.03
--- NOTE | 2024-01-19 10:09 | CM ---
Addendum entered by Mario Campbell 01/19/24 16:22:
[facility] that [facility] manages mental health for [employer] insurance and [facility] approved 5 days inpatient psychiatric level of afre at [facility]. [facility]
for [facility] today.
Chest x-ray with Covid test result faxed to [facility].
UC to arrange transportation with Acute care ambulance, [facility] with pick out hand time after 7:00 p.m. PMNC completed and left with UC. Original 201 form goes with ambulance crew. A copy remains oin the chart.
[facility] nursing report: [phone]
Please fax discharge instructions with chest x-ray and Covid test to [phone].
D/C plan: [facility]
Addendum entered by Mario Campbell 01/19/24 11:50:
[facility] and he confirmed that pt is accepted for admission to [facility]. An auth requested. Chest X-ray and Covid test requested.
CM called [employer] insurance [phone], spoke to marketing representative Amauri and he is requested to complete Prior authorization request on [employer] and with pt's clinical fax to [phone].
MARY spoke to [facility] and he stated he is familiar with [employer] and he will complete Prior authorization request and with pt's clinica will fax to [employer] insurance [phone] and he will request an emergency
expedite auth.
Awaiting for an authorization for inpatient psychiatric admission to [facility].
Per psychiatrist, 201 form completed.
D/C plan: [facility] when an auth is obtained.
CM will follow to assist pt with discharge to [facility].
Original Note:
CM following re: discharge planning.
Reviewed pt's chart, met with pt. pt's sister Sue [phone] and pt's friend/van driver Gustavo at bedside.
Pt is aware of going to inpatient psychiatric treatment to improve mood and behaviors and to adjust psychotropic meds. Pt's sister supports pt's plan and pt stated she had a nerve breakdown in the past and she feels she is in the same state of
experiencing increasing of her behavior. 201 signed by the pt and left with RN for psychiatrist to complete and to sign.
Most of inpatient psychiatric hospitals denied a referral.
CM spoke to [facility] liaison Vence, requested updated clinical with labs, EKG and UDS results faxed to [facility] for a review.
D/C plan: [facility], 201 commitment. Awaiting for determination from [facility].
CM following to assist pt with discharge to inpatient psychiatric hospital.
--- NOTE | 2024-01-19 12:21 | W.PN.UPDATE ---
Update Note
Progress Note Update
patient seen chart reviewed. she has continued w intermittent verbalization of suicidal thoughts. she also remains preoccupied with being evicted etc. noted bun cr elevated this am. will encourage fluids. potassium is also low. have texted
hospitalist. will not change psych meds at this point . risperdal clearance can be decreased w renal dysfunction which hopefully will revert to normal w hydration . she is also taking zoloft generally safe w renal issues. . patient has been accepted
a linda somers cm working on getting insurance cert.
[2024-01-19] MEDS: KCL 40 MEQ PO (14:35)
[2024-01-19] MEDS: KCL 270 MEQ IV (14:37)
[2024-01-19 15:33] VITALS: BP 136/81
[2024-01-19 15:54] LABS: COVID-19 Antigen Negative (Negative)
[2024-01-19 19:42] VITALS: BP 150/80
--- NOTE | 2024-01-19 20:11 | PTCARENOTE ---
Pt picked up via ambulance. Pt ambulated to stretcher with assistance. Pt sent with documentation, VSS. Report given to [facility]. Pt IV removed, belongings sent with patient.
== END 2024-01-19 19:43 | DRG 918 ==
LOC: 4 WEST ACU 13:38
PROVIDERS: Internal Medicine; Physician Assistant Medical; ADMITTING PHYSICIAN Internal Medicine; ATTENDING PHYSICIAN Hospitalist; EMERGENCY PHYSICIAN Student in an Organized Health Care Education/Training Program; FAMILY PHYSICIAN Family Medicine; OTHER PHYSICIAN Psychiatry & Neurology Psychiatry
DX: T50.1X2A Poisoning by loop [high-ceiling] diuretics, intentional self-harm, initial encounter (principal); E87.20 Acidosis, unspecified; I48.92 Unspecified atrial flutter; N17.8 Other acute kidney failure; R45.851 Suicidal ideations; F32.3 Major depressive disorder, single episode, severe with psychotic features; J44.9 Chronic obstructive pulmonary disease, unspecified; F03.A0 Unspecified dementia, mild, without behavioral disturbance, psychotic disturbance, mood disturbance, and anxiety; F32.A Depression, unspecified; I12.9 Hypertensive chronic kidney disease with stage 1 through stage 4 chronic kidney disease, or unspecified chronic kidney disease; N18.32 Chronic kidney disease, stage 3b; T38.3X2A Poisoning by insulin and oral hypoglycemic [antidiabetic] drugs, intentional self-harm, initial encounter; N14.19 Nephropathy induced by other drugs, medicaments and biological substances; F41.9 Anxiety disorder, unspecified; K21.9 Gastro-esophageal reflux disease without esophagitis; F17.210 Nicotine dependence, cigarettes, uncomplicated; R79.89 Other specified abnormal findings of blood chemistry; R94.31 Abnormal electrocardiogram [ECG] [EKG]; E87.6 Hypokalemia; Z79.899 Other long term (current) drug therapy; Z87.19 Personal history of other diseases of the digestive system; Z85.3 Personal history of malignant neoplasm of breast; Z85.41 Personal history of malignant neoplasm of cervix uteri; Z88.8 Allergy status to other drugs, medicaments and biological substances
CPT/HCPCS: 80048; 80053; 80143; 80179; 80306; 81003; 82077; 82962; 83735; 85025; 85610; 85730; 87811; 93005; 93306; 97116; 97162; 97166; 99285; 99406

== ENCOUNTER 2024-02-02 01:23 | Emergency (ER) | payer OTHER, SELFPAY ==
[2024-02-02 01:29] VITALS: BP 160/69
--- NOTE | 2024-02-02 02:10 | ED.GENMED ---
History of Present Illness
General
Chief Complaint: Failure to Thrive
Source: patient
Time Seen by Provider: 02/02/24 02:03
History of Present Illness
History of Present Illness:
This patient is an 78-year-old female presents emergency department because her family was concerned that patient has not been eating or drinking for the last 3 days. The patient is generally annoyed that she is here. She states that she is in her
80s and she does not need to be here anymore. She denies active SI. She does admit to not eating or drinking much recently, states she just does not really feel like it. However, she denies pain including no abdominal pain, chest pain. She also
denies dyspnea, fever, chills, vomiting, diarrhea, constipation, back pain, urinary symptoms, or other complaints
Past History
Past History
ED Past Medical History: Arrthythmia (atrial fib), Cancer (Breast and Cervix), COPD, GERD, HTN, Hypercholesterolemia, Psychiatric (Anxiety) and Other (Diverticulitis, Sciatica, Hiatal hernia, )
ED Past Surgical History: Bowel resection (with Colostomy due to diverticulitis) and Gynecological (D&C, Lumpectomy left)
Social History
Tobacco: Smoker
Alcohol: Occasional
Drug: None
Personal:
Living: with family (Son)
Employment: Retired
Family History
Family History: Other (Noncontributory)
Phy Exam
Physical Exam
Physical Exam:
GENERAL: Alert , in no apparent distress
EYE: pupils equal and reactive
NECK: Supple, no significant adenopathy.
ENT: o/p clr, mm slightly dry
CARDIAC: Regular rate and rhythm .
LUNGS: Clear breath sounds bilaterally, no acute respiratory distress, no wheezes/rales/rhonchi
ABDOMEN: Soft, without focal tenderness, no r/g, no cvat
NEUROLOGICAL: Alert, grossly nonfocal
SKIN: Warm and dry, skin intact.
MUSCULOSKELETAL: No edema, well perfused.
PSYCH: Normal and appropriate interaction.
Course
Orders/Labs/Results
Orders:
Orders
02/02/24 02:09
Cardiac Monitoring- Treatment ONCE
Urinalysis Reflex To Culture Urgent
02/02/24 02:10
Electrocardiogram (*1) Stat
Reason for Study: Abdominal Pain
EKG- Treatment ONCE
02/02/24 02:31
Complete Blood Count/No Diff Urgent
Comprehensive Metabolic Panel Urgent
Lipase Urgent
Troponin I Urgent
Abnormal Lab Results
02/02/24
02:31
RBC 4.09 L 10^6/uL
(4.20-5.40)
Hgb 11.8 L g/dL
(12.0-16.0)
Hct 34.1 L %
(37.0-47.0)
RDW 16.3 H %
(11.5-14.5)
MPV 10.8 H fL
(7.4-10.4)
BUN 32 H mg/dl
(7-17)
Creatinine 1.5 H mg/dL
(0.6-1.0)
02/02/24 02:31
02/02/24 02:31
Vital Signs
Initial and Last Documented VS:
Initial Vital Signs
Temp Pulse Resp BP
97.8 F 70 18 160/69
02/02/24 01:29 02/02/24 01:29 02/02/24 01:29 02/02/24 01:29
Last Documented Vital Signs
Temp Pulse Resp BP Pulse Ox
97.8 F 65 16 111/92 98
02/02/24 01:29 02/02/24 04:00 02/02/24 04:00 02/02/24 04:00 02/02/24 02:35
Update Note
Update Note:
Patient presents to the Emergency Department with __reported anorexia/failure to thrive
Number and Complexity of Problems Addressed at the Encounter
� Chronic conditions affecting care:
� Acute Exacerbation and/or Progression of Chronic Illness:
� Differential Diagnosis includes: But not limited to dehydration, electrolyte disturbance, malnutrition, etc. etc.
Amount and/or Complexity of Data to be Reviewed and Analyzed
� I performed an independent evaluation of and my interpretation is:
EKG: Read by me, normal sinus rhythm, first-degree block, no acute ischemia, low voltage
CT:
Xrays:
Laboratory Studies: Generally unremarkable with the exception of mild anemia and prerenal azotemia most likely related to dehydration
Other:
� Review of other/old records reveals:
� Clinical information was obtained by an independent historian:
� Prescriptions/Medications Considered but not given:
� Further testing considered but not performed:
Risk of Complications and/or Morbidity or Mortality of Patient Management
� Social determinants of health affecting care:
� Discussion with other providers (PCP, Hospitalists, Consultants, etc):
� Escalation of care including admission/observation vs risk of discharge considered: Calls placed and case discussed with patient's sister, Sue, as well as her son who he lives with. EMS was called by Sue. She has
concerned about patient's ability to continue to live in the home and care for herself. I made patient aware of her findings here and recommend overnight observation and IV fluids to assure resolution of presumed renal insufficiency, she deeply
refuses and is insistent on going home. She is lucid although there is a history of mild dementia noted she can work accurately report the year, location, her name, and appropriately answer questions. I believe she has insight, and we will respect
her autonomy. Her son is aware that she will be coming back home and he is agreeable to this. We are setting transportation up.
ED Attending Note
-
Portions of this chart may have been created with voice recognition software.� Occasional wrong word or��sound alike� substitutions may have occurred due to the inherent limitations of voice recognition software.
Discharge Plan
Departure
Patient Disposition: Home (Routine Discharge)
Date of Disposition: 02/02/24
Time of Disposition: 05:25
Patient with high blood pressure during this ER visit?: Yes
Condition: Good
Discharge Problem:
Dehydration
Instructions: Dehydration, Adult ED, BLOOD PRESSURE
Prescriptions:
No Action
hydrochlorothiazide 25 mg Tablet
25 mg PO DAILY
Artificial Tears (PF) Dropperette
1 drp BOTH EYES QIDPRN PRN (Reason: dry)
nicotine 14 mg/24 hr Patch 24 Hour
14 mg transdermal DAILY 28 Days Qty: 28 0RF
alprazolam 0.25 mg Tablet
0.25 mg PO Q8HPRN PRN (Reason: anxiety) 30 Days Qty: 15 0RF
risperidone 0.5 mg Tablet
0.5 mg PO HS 30 Days Qty: 30 0RF
Referrals:
PRIVATE,PHYSICIAN [Family Provider] -
Activity Restrictions/Additional Instructions:
YOU HAVE ABNORMALITIES OF YOUR LABS SUGGESTING DEHYDRATION AND POSSIBLE KIDNEY DYSFUNCTION. PLEASE STAY HYDRATED AND HAVE YOUR LABS RECHECKED IN THE NEXT 24-48 HOURS. IF YOU DEVELOP FEVER, CHILLS, VOMITING, CHEST PAIN, TROUBLE BREATHING, ABDOMINAL
PAIN, OR OTHER WORRISOME SIGNS, GO TO THE ER IMMEDIATELY!
Interventions
Interventions:
*Risk Screen - Suicide Last Done: 02/02/24 01:33
*General Assessment Last Done: 02/02/24 01:34
*Neglect/Abuse Screening Last Done: 02/02/24 01:32
Discharge Date and Time
Print Language: FRENCH
[2024-02-02 02:35] VITALS: BP 95/68
[2024-02-02 02:58] LABS: Hematocrit 34.1 % (37.0-47.0); Hemoglobin 11.8 g/dL (12.0-16.0); Mean Corp Hgb Conc. 34.6 g/dL (33.0-37.0); Mean Corpuscular Hgb 28.9 pg (27.0-31.0); Mean Corpuscular Volume 83.4 fL (81.0-99.0); Mean Platelet Volume 10.8 fL (7.4-10.4); Platelet Count 258 10^3/uL (130-400); Red Blood Cell Count 4.09 10^6/uL (4.20-5.40); Red Cell Dist. Width 16.3 % (11.5-14.5); White Blood Cell Count 8.3 10^3/uL (4.8-10.8)
[2024-02-02 03:04] VITALS: BP 140/77
[2024-02-02 03:12] LABS: ALT (SGPT) 22 U/L (0-35); AST (SGOT) 33 U/L (14-36); Albumin 3.7 g/dl (3.5-5.0); Alkaline Phosphatase 106 U/L (38-126); Blood Urea Nitrogen 32 mg/dl (7-17); Calcium 9.2 mg/dl (8.4-10.2); Carbon Dioxide 27 mmol/L (22-30); Chloride 103 mmol/L (98-107); Glucose 79 mg/dl (70-99); Lipase 148 U/L (23-300); Potassium 3.7 mmol/L (3.5-5.1); Sodium 136 mmol/L (135-145); Total Bilirubin 0.5 mg/dl (0.2-1.3); Total Protein 6.5 g/dl (6.3-8.2); eGFR 35.01
[2024-02-02 03:24] LABS: Troponin I 0.021 ng/ml
[2024-02-02 04:00] VITALS: BP 111/92
[2024-02-02 05:54] VITALS: BP 106/61
[2024-02-02 06:00] VITALS: BP 112/72
== END 2024-02-02 06:13 | disposition home or self-care (01) ==
LOC: EMR 01:23
PROVIDERS: EMERGENCY PHYSICIAN Emergency Medicine
DX: E86.0 Dehydration (principal); R62.7 Adult failure to thrive; I48.91 Unspecified atrial fibrillation; J44.9 Chronic obstructive pulmonary disease, unspecified; K21.9 Gastro-esophageal reflux disease without esophagitis; I10 Essential (primary) hypertension; E78.00 Pure hypercholesterolemia, unspecified; F41.9 Anxiety disorder, unspecified; F17.200 Nicotine dependence, unspecified, uncomplicated
CPT/HCPCS: 99283; 80053; 83690; 84484; 85027; 93005

== ENCOUNTER 2024-02-03 21:18 | Emergency (ER) | payer OTHER, SELFPAY ==
[2024-02-03 21:28] VITALS: BP 144/80
[2024-02-03 21:30] VITALS: BMI 31.1
[2024-02-03 21:30] LABS: % Basophils 0.6 % (0-2); % Eosinophils 3.4 % (0-6); % Immature Granulocytes 0.4 % (0-0.5); % Lymphocytes 13.7 % (20.5-51.1); % Monocytes 9.2 % (1.7-9.3); % Neutrophils 72.7 % (42.2-75.2); Absolute Basophils 0.1 10^3/uL (0-0.2); Absolute Eosinophils 0.3 10^3/uL (0-0.7); Absolute Lymphocytes 1.1 10^3/uL (1.2-3.4); Absolute Monocytes 0.8 10^3/uL (0.1-0.6); Hematocrit 33.4 % (37.0-47.0); Hemoglobin 11.4 g/dL (12.0-16.0); Mean Corp Hgb Conc. 34.1 g/dL (33.0-37.0); Mean Platelet Volume 10.6 fL (7.4-10.4); Nucleated Red Blood Cells % 0 %; Platelet Count 236 10^3/uL (130-400); Red Blood Cell Count 3.93 10^6/uL (4.20-5.40); Red Cell Dist. Width 16.5 % (11.5-14.5); White Blood Cell Count 8.2 10^3/uL (4.8-10.8)
[2024-02-03 21:48] LABS: ALT (SGPT) 18 U/L (0-35); AST (SGOT) 24 U/L (14-36); Albumin 3.4 g/dl (3.5-5.0); Alkaline Phosphatase 100 U/L (38-126); Blood Urea Nitrogen 30 mg/dl (7-17); Calcium 8.7 mg/dl (8.4-10.2); Carbon Dioxide 23 mmol/L (22-30); Chloride 108 mmol/L (98-107); Estimated Creatinine Clearance 31 ml/min; Glucose 96 mg/dl (70-99); Potassium 3.4 mmol/L (3.5-5.1); Sodium 137 mmol/L (135-145); Total Bilirubin 0.5 mg/dl (0.2-1.3); Total Protein 6.1 g/dl (6.3-8.2); eGFR 41.57
[2024-02-03 21:55] LABS: Troponin I < 0.012 ng/ml
[2024-02-03 22:14] VITALS: BP 148/65
--- NOTE | 2024-02-03 22:33 | ED.GENMED ---
History of Present Illness
General
Chief Complaint: Chest Pain
Source: patient
Time Seen by Provider: 02/03/24 22:23
History of Present Illness
History of Present Illness:
78-year-old female presents to the emergency room complaining of chest pain. Patient states that she been having chest pain on 830. Chest pain was associated with diaphoresis and shortness of breath as well as nausea. She called 911. Patient was
given 4 baby aspirin and nitro by paramedics. Her chest pain resolved. Currently she has no symptoms. She is unaware of any previous cardiac events. She was a longtime smoker but states she quit about 2 years ago.
Past History
Past History
ED Past Medical History: Arrthythmia (atrial fib), Cancer (Breast and Cervix), COPD, GERD, HTN, Hypercholesterolemia, Psychiatric (Anxiety) and Other (Diverticulitis, Sciatica, Hiatal hernia, )
ED Past Surgical History: Bowel resection (with Colostomy due to diverticulitis) and Gynecological (D&C, Lumpectomy left)
Social History
Tobacco: Smoker
Alcohol: Occasional
Drug: None
Personal:
Living: with family (Son)
Employment: Retired
Family History
Family History: Other (Noncontributory)
Phy Exam
Physical Exam
Physical Exam:
General: Awake, Alert, Oriented X3. No acute distress.
Vitals: unremarkable
Head: Atraumatic
Eyes: Pupils equal, EOMI
Throat: Airway intact, no exudates
Neck: Trachea midline
Lungs: Clear and equal b/l
Heart: Regular rate, 2/6 systolic ejection murmurs
Abd: Soft, Nontender, No pulsatile mass
Neuro: Nonfocal
Skin: Warm, dry, no rash
Extremities: pulses equal b/l, no edema
Scores
Heart Score for Chest Pain Patients
STEMI patient?: No
History: Moderately Suspicious
ECG: Nonspecific Repolarization
Age: >/= 65 years
Risk Factors: 1 or 2 Risk Factors
Troponin: </= Normal Limit
Heart Score for Chest Pain Patients: 5
Heart Score Risk: 20.3% MACE over next 6 weeks
Course
Orders/Labs/Results
Orders:
Orders
02/03/24 21:20
Electrocardiogram (*1) Urgent
Reason for Study: Chest Pain
02/03/24 21:21
EKG- Treatment ONCE
02/03/24 21:26
Complete Blood Count/With Diff Urgent
Comprehensive Metabolic Panel Urgent
Troponin I Urgent
02/03/24 21:31
CR Chest - 2 Views Urgent
Reason For Exam: shortness of breath
02/04/24 00:34
Troponin I Urgent
Abnormal Lab Results
02/03/24
21:26
RBC 3.93 L 10^6/uL
(4.20-5.40)
Hgb 11.4 L g/dL
(12.0-16.0)
Hct 33.4 L %
(37.0-47.0)
RDW 16.5 H %
(11.5-14.5)
MPV 10.6 H fL
(7.4-10.4)
Absolute Lymphs (auto) 1.1 L 10^3/uL
(1.2-3.4)
Absolute Monos (auto) 0.8 H 10^3/uL
(0.1-0.6)
Lymphocytes % 13.7 L %
(20.5-51.1)
Potassium 3.4 L mmol/L
(3.5-5.1)
Chloride 108 H mmol/L
(98-107)
BUN 30 H mg/dl
(7-17)
Creatinine 1.3 H mg/dL
(0.6-1.0)
Total Protein 6.1 L g/dl
(6.3-8.2)
Albumin 3.4 L g/dl
(3.5-5.0)
02/03/24 21:26
02/03/24 21:26
Vital Signs
Initial and Last Documented VS:
Initial Vital Signs
BP
144/80
02/03/24 21:28
Last Documented Vital Signs
Temp Pulse Resp BP Pulse Ox
98.1 F 54 19 121/51 97
02/03/24 21:31 02/04/24 04:30 02/04/24 04:30 02/04/24 04:00 02/04/24 04:30
MDM/Problems Addressed
Differential Diagnosis Includes:
Patient due to, pneumothorax, chest wall pain
MDM/Problems Addressed:
Patient presents with right-sided chest pain. No chest pain at the time of my evaluation. EKG shows no acute ischemic changes. Troponins negative x 2. Patient placed on the chest pain hotline. Understands she should return for any further
episodes.
*Radiology
Radiology exam reviewed: preliminary read by ED provider (No acute findings by my personal review of the chest x-ray)
*Pulse Oximetry
Patient hypoxic: no
*EKG
Interpreted by ED Provider?: Yes
Interpretation: abnormal
Heart Rate: 62
Rate: normal
Rhythm: sinus
Interval: first degree heart block
QRS Pattern: normal QRS
Ischemia: no ischemia
*[employer] Interpretation
Rate: normal
Interpretation: normal
Heart Rate: 62
Rhythm: sinus
*Critical Care Note
Total Time (30-74mins, 75-104mins- exclusive of procedures): Not Applicable
ED Attending Note
-
Portions of this chart may have been created with voice recognition software.� Occasional wrong word or��sound alike� substitutions may have occurred due to the inherent limitations of voice recognition software.
Discharge Plan
Departure
Patient Disposition: Home (Routine Discharge)
Date of Disposition: 02/04/24
Time of Disposition: 01:43
Patient with high blood pressure during this ER visit?: No
Condition: Good
Discharge Problem:
Chest pain
Instructions: Chest Pain DCA Follow Up
Prescriptions:
No Action
hydrochlorothiazide 25 mg Tablet
25 mg PO DAILY
Artificial Tears (PF) Dropperette
1 drp BOTH EYES QIDPRN PRN (Reason: dry)
nicotine 14 mg/24 hr Patch 24 Hour
14 mg transdermal DAILY 28 Days Qty: 28 0RF
alprazolam 0.25 mg Tablet
0.25 mg PO Q8HPRN PRN (Reason: anxiety) 30 Days Qty: 15 0RF
risperidone 0.5 mg Tablet
0.5 mg PO HS 30 Days Qty: 30 0RF
Referrals:
UNKNOWN - PT DOES,NOT KNOW [Family Provider] -
Interventions
Interventions:
*Risk Screen - Suicide Last Done: 02/03/24 21:22
*General Assessment Last Done: 02/03/24 21:22
*Neglect/Abuse Screening Last Done: 02/03/24 21:22
ED- Cardiac Assessment Last Done: 02/03/24 22:29
Discharge Date and Time
Print Language: TAJIK
[2024-02-03 23:00] VITALS: BP 125/97
[2024-02-04] VITALS (11 sets, daily range): BP systolic 112–139; BP diastolic 51–111
[2024-02-04 01:06] LABS: Troponin I < 0.012 ng/ml
--- NOTE | 2024-02-04 10:17 | CM ---
Addendum entered by Amanda Molina 02/04/24 14:41:
[facility] accepted referral.
Original Note:
CM following re: d/c planning.
Pt presents to ER c/o chest pain.
Pt assessed and medically cleared for d/c.
CM c/s due to pt's colostomy bag being taped up, coming apart.
CM met with pt, she states she has been managing the colostomy for about 3 years.
She resides at [facility] with her son, who is schizophrenic.
She states she is independent with mobility and ADLs, but reports she has memory issues.
She is uncertain of the name of the supplier for her supplies, but states she has the phone number at home.
She states she forgot to call in time to get new supplies.
We discussed home care and pt agreed to a referral. VN RN can assist with ordering supplies.
Refs sent to [facility], will confirm acceptance.
CM also spoke to pt's sister, Sue.
She states she also resides in [facility].
Per her, pt does very well during the day, but gets forgetful and dockery in the evenings.
She states she does not have home care right now, but agreed it would be helpful.
She states pt orders her supplies herself, but believes they did not have the size she needed. She is uncertain.
She says pt has a rollator with a seat.
Regarding son, she states he is affiliated with [facility] and he will be moving into an apartment eventually, so pt will reside alone.
Per her, [facility] was out last week, she is uncertain of the outcome.
When CM discussed this with pt, she states she was informed she is over income for services.
Pt receives SS and 2 pensions.
She is not interested in private pay caregiver resources at this time.
Sister states she checks in on her often.
PCP Dr. Gabriel, per sister, is pt's nephew.
Goal: home with VN.
== END 2024-02-04 12:34 | disposition home or self-care (01) ==
LOC: EMR 21:18
PROVIDERS: Emergency Medicine; EMERGENCY PHYSICIAN Emergency Medicine
DX: R07.89 Other chest pain (principal); R61 Generalized hyperhidrosis; R11.0 Nausea; I48.91 Unspecified atrial fibrillation; J44.9 Chronic obstructive pulmonary disease, unspecified; K21.9 Gastro-esophageal reflux disease without esophagitis; I10 Essential (primary) hypertension; E78.00 Pure hypercholesterolemia, unspecified; F41.9 Anxiety disorder, unspecified; F17.200 Nicotine dependence, unspecified, uncomplicated; Z85.3 Personal history of malignant neoplasm of breast; Z93.3 Colostomy status
CPT/HCPCS: 99283; 71046; 80053; 84484; 85025; 93005

== ENCOUNTER 2024-02-08 12:40 | Emergency (ER) | payer OTHER, SELFPAY ==
[2024-02-08 12:44] VITALS: BP 97/63
--- NOTE | 2024-02-08 13:02 | ED.GENMED ---
History of Present Illness
General
Chief Complaint: Crisis Evaluation
Source: patient
Exam Limitations: none
Time Seen by Provider: 02/08/24 12:57
History of Present Illness
History of Present Illness:
See MDM
Past History
Past History
ED Past Medical History: Arrthythmia (atrial fib), Cancer (Breast and Cervix), COPD, GERD, HTN, Hypercholesterolemia, Psychiatric (Anxiety) and Other (Diverticulitis, Sciatica, Hiatal hernia, )
ED Past Surgical History: Bowel resection (with Colostomy due to diverticulitis) and Gynecological (D&C, Lumpectomy left)
Social History
Tobacco: Smoker
Alcohol: Occasional
Drug: None
Personal:
Living: with family (Son)
Employment: Retired
Family History
Family History: Other (Noncontributory)
Phy Exam
Physical Exam
Physical Exam:
See MDM
Course
Orders/Labs/Results
Orders:
Orders
02/08/24 12:50
1:1 Observation - Suicide/ Violent Behavior As Directed
02/08/24 13:03
Crisis Consult Urgent
Reason for Consult: Depression
Vital Signs
Initial and Last Documented VS:
Initial Vital Signs
Temp Pulse Resp BP Pulse Ox
97.9 F 80 18 97/63 99
02/08/24 12:44 02/08/24 12:44 02/08/24 12:44 02/08/24 12:44 02/08/24 12:44
Last Documented Vital Signs
Temp Pulse Resp BP Pulse Ox
97.9 F 83 18 126/85 99
02/08/24 12:44 02/08/24 16:00 02/08/24 16:00 02/08/24 16:00 02/08/24 16:00
MDM/Problems Addressed
Differential Diagnosis Includes:
HPI and MDM Narrative:
78-year-old female presenting for crisis evaluation. Patient states she is homeless and has not showered in 5 days. However, it is confirmed that she lives in [place]. This is where EMS picked her up. She presents with paperwork indicating
that she was recently in [facility] for mental health issues. Patient is denying suicidal homicidal ideation to me at the moment.
Patient was recently seen in the emergency department a few days ago where she had basic blood work performed.
Physical exam
General: Sitting in bed comfortably. Appropriate hygiene
HEENT: protecting airway
Neck: appears supple
CV: No evidence of cyanosis
Resp: No accessory muscle use
Abd: Non-distended
Extremities: No deformities
Neuro: alert
Psych: Depressed
Skin: Intact
Problems Addressed including Acute and Chronic Conditions affecting care:
1. Depression
Acuity: acute
Prognosis: stable
Details: Will have crisis evaluate
Updates
Crisis did evaluate patient and cleared patient. She is denying any suicidal or homicidal thoughts. Will discharge home
Sister petitioned a 302 but it was declined
Differential Diagnosis (but not limited to): Depression, dementia
Testing considered: CT head
Drug therapy (if applicable): OTC meds, please see d/c instruction regarding Rx drugs
Amount and/or Complexity of Data Reviewed
Clinical info obtained from: Patient
External data reviewed: N/A
Labs I independently reviewed (but not limited to): N/A
Radiology: N/A
Pulse Ox: not hypoxic
EKG independently reviewed: N/A
Workers Compensation Legal Secretary: N/A
Critical Care: N/A
Risk of Complication:
Social Determinants of health: Poor social support
Discussed with other providers: N/A
Escalation of Care includes Admit/Obs: After being observed in the Emergency Department, pt stable for discharge.
Occasional wrong word or 'sound a like' substitutions may have occurred due to the inherent limitations of voice recognition software. Read the chart carefully and recognize, using context, where substitutions have occurred.
*Critical Care Note
Total Time (30-74mins, 75-104mins- exclusive of procedures): Not Applicable
ED Attending Note
-
Portions of this chart may have been created with voice recognition software.� Occasional wrong word or��sound alike� substitutions may have occurred due to the inherent limitations of voice recognition software.
Discharge Plan
Departure
Patient Disposition: Home (Routine Discharge)
Date of Disposition: 02/08/24
Time of Disposition: 15:31
Patient with high blood pressure during this ER visit?: No
Discharge Problem:
Depressed
Instructions: Depression, Adult (DC)
Prescriptions:
No Action
hydrochlorothiazide 25 mg Tablet
25 mg PO DAILY
Artificial Tears (PF) Dropperette
1 drp BOTH EYES QIDPRN PRN (Reason: dry)
nicotine 14 mg/24 hr Patch 24 Hour
14 mg transdermal DAILY 28 Days Qty: 28 0RF
alprazolam 0.25 mg Tablet
0.25 mg PO Q8HPRN PRN (Reason: anxiety) 30 Days Qty: 15 0RF
risperidone 0.5 mg Tablet
0.5 mg PO HS 30 Days Qty: 30 0RF
Referrals:
UNKNOWN - PT NOT,INTERVIEWE [Family Provider] -
Activity Restrictions/Additional Instructions:
Please return for any worsening symptoms.
You may return at any time if you have further concerns.
Please follow up with your doctor at the first available appointment, preferably this week.
Interventions
Interventions:
*Risk Screen - Suicide Last Done: 02/08/24 12:44
*General Assessment Last Done: 02/08/24 12:44
ED- Fall Risk Assessment Last Done: 02/08/24 12:58
*ED COVID-19 Vaccine History Last Done: 02/08/24 15:17
ED-Psychological Assessment Last Done: 02/08/24 12:58
Discharge Date and Time
Print Language: SLOVAK
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
[2024-02-08 16:00] VITALS: BP 126/85
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
[2024-02-08 19:20] VITALS: BP 165/90
== END 2024-02-08 19:45 | disposition home or self-care (01) ==
LOC: EMR 12:40
PROVIDERS: EMERGENCY PHYSICIAN Student in an Organized Health Care Education/Training Program
DX: F32.A Depression, unspecified (principal); I48.91 Unspecified atrial fibrillation; J44.9 Chronic obstructive pulmonary disease, unspecified; K21.9 Gastro-esophageal reflux disease without esophagitis; I10 Essential (primary) hypertension; E78.00 Pure hypercholesterolemia, unspecified; F41.8 Other specified anxiety disorders; F17.200 Nicotine dependence, unspecified, uncomplicated; Z85.3 Personal history of malignant neoplasm of breast; Z93.3 Colostomy status
CPT/HCPCS: 99282

== ENCOUNTER 2024-02-12 09:37 | Inpatient (IN) | payer OTHER, SELFPAY ==
[2024-02-09 14:10] VITALS: BP 126/87
[2024-02-09 14:39] LABS: % Basophils 0.9 % (0-2); % Eosinophils 2.1 % (0-6); % Immature Granulocytes 0.4 % (0-0.5); % Lymphocytes 6.2 % (20.5-51.1); % Monocytes 6.4 % (1.7-9.3); Absolute Basophils 0.1 10^3/uL (0-0.2); Absolute Eosinophils 0.2 10^3/uL (0-0.7); Absolute Lymphocytes 0.6 10^3/uL (1.2-3.4); Absolute Monocytes 0.7 10^3/uL (0.1-0.6); Absolute Neutrophils 8.5 10^3/uL (1.4-6.5); Hemoglobin 12.7 g/dL (12.0-16.0); Mean Corp Hgb Conc. 34.3 g/dL (33.0-37.0); Mean Corpuscular Hgb 28.7 pg (27.0-31.0); Mean Corpuscular Volume 83.7 fL (81.0-99.0); Mean Platelet Volume 10.9 fL (7.4-10.4); Nucleated Red Blood Cells % 0 %; Platelet Count 312 10^3/uL (130-400); Red Blood Cell Count 4.42 10^6/uL (4.20-5.40); Red Cell Dist. Width 16.8 % (11.5-14.5); White Blood Cell Count 10.2 10^3/uL (4.8-10.8)
[2024-02-09 14:49] LABS: INR 1.15; PT 14.5 Sec (11.4-14.6)
[2024-02-09 15:06] LABS: ALT (SGPT) 18 U/L (0-35); AST (SGOT) 29 U/L (14-36); Alkaline Phosphatase 114 U/L (38-126); Blood Urea Nitrogen 32 mg/dl (7-17); Calcium 9.2 mg/dl (8.4-10.2); Carbon Dioxide 17 mmol/L (22-30); Chloride 107 mmol/L (98-107); Glucose 55 mg/dl (70-99); Potassium 3.5 mmol/L (3.5-5.1); Sodium 137 mmol/L (135-145); Total Bilirubin 0.8 mg/dl (0.2-1.3); eGFR 41.57
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
[2024-02-09 15:11] LABS: Glucose - Point of Care 58 mg/dl (70-99)
[2024-02-09 15:17] LABS: APTT 23.2 Sec (23.4-35.0)
[2024-02-09 15:31] LABS: Glucose - Point of Care 71 mg/dl (70-99)
[2024-02-09 16:16] VITALS: BMI 27.5
[2024-02-09 16:17] LABS: Glucose - Point of Care 129 mg/dl (70-99)
--- NOTE | 2024-02-09 16:21 | ED.GENMED ---
History of Present Illness
General
Chief Complaint: Skin Problem
Time Seen by Provider: 02/09/24 16:10
History of Present Illness
History of Present Illness:
78-year-old female with history of hypertension and hyperlipidemia presents to the emergency department with a complaint of 'bleeding from the colostomy site'. She is quite vague with details on exam and does not answer many questions. Patient has
been in this hospital multiple times over the past week for vague complaints. Of note she was admitted to this hospital in mid December after a suicide attempt and intentional overdose and was discharged to [facility]. Was here last night
for depression however was not felt to meet 302 criteria and was discharged home. She also informs me that she has chest pain currently but is unable to tell me when this started. Shortly after my evaluation the patient I discussed the case with
case management, apparently Adult Protective Services is involved with the patient and it is the hope to have the patient placed a long-term living situation that is more beneficial to her than where she currently resides. It is felt that this
process may take in excess of 1 week due to her medical issues and recent suicide attempt.
Past History
Past History
ED Past Medical History: Arrthythmia (atrial fib), Cancer (Breast and Cervix), COPD, GERD, HTN, Hypercholesterolemia, Psychiatric (Anxiety) and Other (Diverticulitis, Sciatica, Hiatal hernia, )
ED Past Surgical History: Bowel resection (with Colostomy due to diverticulitis) and Gynecological (D&C, Lumpectomy left)
Social History
Tobacco: Smoker
Alcohol: Occasional
Drug: None
Personal:
Living: with family (Son)
Employment: Retired
Family History
Family History: Other (Noncontributory)
Review of Systems
Review of Systems
Allergies reviewed?: Yes
All Other Systems: ROS reviewed and negative except as documented in HPI and ROS
Phy Exam
Physical Exam
Physical Exam:
GEN: Well appearing, NAD, WDWN
HEENT: Oral mucosa moist, no scleral icterus
Cardiac: Regular rate
Lung: No respiratory distress, no tachypnea
Abdomen: Left lower quadrant ostomy site clean, no bleeding, empty ostomy bag and rhythm
MSK: No gross deformity or injuries
Skin: Good color, no pallor or jaundice, no rashes
Neuro: AO x3, moves all extremities freely
Psych: Flat affect, minimally conversant
Course
Orders/Labs/Results
Orders:
Orders
02/09/24 14:27
PTT Urgent
Prothrombin Time Urgent
02/09/24 14:28
Type+Screen Urgent
Complete Blood Count/With Diff Urgent
Comprehensive Metabolic Panel Urgent
02/09/24 Dinner
Regular
At Your Request: Limited Participation
02/09/24 16:17
Electrocardiogram (*1) Urgent
Reason for Study: Chest Pain
EKG- Treatment ONCE
02/09/24 17:15
Admit/Transfer Patient As Directed
Co-Sign Provider:
Level of Care: Observation services
Assign to:: Medical/Surgical
Physician / Group: emily
Diagnosis: chest pain
PRN Pain Medication Management As Directed
May give lesser potent ordered pain med per pt: Yes
preference::
Protocol:: Medication orders for pain may be administered in a
manner that supports deferring to patient preference
when the pt is:
- Requesting an ordered lesser potent pain medication.
Least to most potent pain medications are defined
as: acetaminophen < NSAID < tramadol < opioids
(morphine, oxycodone, hydromorphone).
- Requesting a lesser dose of the same medication IF
ORDERED.
- Requesting a less intrusive route of administration
if both routes are prescribed by the provider (PO <
IV).
02/09/24 17:16
Code Status As Directed
Resuscitation Status: Do not resuscitate
Reached after discussion with pt or family/Healthcare POA: Yes
DNR Bracelet Application ONCE
02/09/24 17:19
EKG [Electrocardiogram (*1)] Urgent
Reason for Study: Chest Pain
02/09/24 18:51
Alprazolam [Xanax] 0.25 mg PO Q8HPRN PRN
02/09/24 18:51
Case Management Consult ONCE
Case Management Consult: Discharge Planning
Activity As Directed
Activity Level: As Tolerated
Vital Signs As Directed
Frequency: Per unit guidelines
DX Deep Vein Thrombosis Video Routine
02/09/24 18:57
Artificial Tears (Pf) [Refresh Eye Drops (Pf)] 1 drops BOTH EYES QIDPRN PRN
02/09/24 20:00
Heparin 5,000 units SC Q12
02/09/24 22:00
Risperidone [Risperdal] 0.5 mg PO HS
02/10/24 06:00
Complete Blood Count/With Diff IN AM
Comprehensive Metabolic Panel IN AM
02/10/24 08:00
Hydrochlorothiazide [Oretic] 25 mg PO DAILY
Nicotine [Nicoderm Transdermal] 14 mg TRANSDERM DAILY
Abnormal Lab Results
02/09/24 02/09/24 02/09/24
14:27 14:28 15:10
RDW 16.8 H %
(11.5-14.5)
MPV 10.9 H fL
(7.4-10.4)
Absolute Neuts (auto) 8.5 H 10^3/uL
(1.4-6.5)
Absolute Lymphs (auto) 0.6 L 10^3/uL
(1.2-3.4)
Absolute Monos (auto) 0.7 H 10^3/uL
(0.1-0.6)
Neutrophils % 84.0 H %
(42.2-75.2)
Lymphocytes % 6.2 L %
(20.5-51.1)
APTT 23.2 L Sec
(23.4-35.0)
Carbon Dioxide 17 L mmol/L
(22-30)
BUN 32 H mg/dl
(7-17)
Creatinine 1.3 H mg/dL
(0.6-1.0)
Glucose 55 L* mg/dl
(70-99)
POC Glucose 58 L mg/dl
(70-99)
02/09/24
16:14
RDW
MPV
Absolute Neuts (auto)
Absolute Lymphs (auto)
Absolute Monos (auto)
Neutrophils %
Lymphocytes %
APTT
Carbon Dioxide
BUN
Creatinine
Glucose
POC Glucose 129 H mg/dl
(70-99)
02/09/24 14:28
02/09/24 14:28
Vital Signs
Initial and Last Documented VS:
Initial Vital Signs
Temp Pulse Resp BP Pulse Ox
97.8 F 67 16 126/87 98
02/09/24 14:10 02/09/24 14:10 02/09/24 14:10 02/09/24 14:10 02/09/24 14:10
Last Documented Vital Signs
Temp Pulse Resp BP Pulse Ox
98.0 F 81 16 150/93 97
02/09/24 18:55 02/09/24 18:55 02/09/24 18:55 02/09/24 18:55 02/09/24 19:02
MDM/Problems Addressed
MDM/Problems Addressed:
Adult Protective Services is involved with this patient and they informed case management that the patient is not suitable for discharge to home due to an unsafe living situation. Patient repeatedly states that she is concerned about her
schizophrenic son who lives at home. Given that she is unsafe and will take quite a lengthy time to place this patient we will admit to the hospitalist service. She offers a myriad of complaints however she will not give me consistent history
details
Her initial glucose was 55, was given oral glucose load and repeat accucheck improved to 71 and ultimately 129
*Critical Care Note
Total Time (30-74mins, 75-104mins- exclusive of procedures): Not Applicable
ED Attending Note
-
Portions of this chart may have been created with voice recognition software.� Occasional wrong word or��sound alike� substitutions may have occurred due to the inherent limitations of voice recognition software.
Discharge Plan
Departure
Patient Disposition: Admit
Date of Disposition: 02/09/24
Time of Disposition: 16:25
Admit to: Med/Surg
Presentation/result/management discussed w/ accepting MD/DO: Hospitalist
Discharge Problem:
Adult failure to thrive
Interventions
Interventions:
*Risk Screen - Suicide Last Done: 02/09/24 14:10
*General Assessment Last Done: 02/09/24 14:10
*Neglect/Abuse Screening Last Done: 02/09/24 14:10
ED- Fall Risk Assessment Last Done: 02/09/24 16:17
*ED COVID-19 Vaccine History Last Done: 02/09/24 18:30
*Nursing Disposition Last Done: 02/09/24 18:30
ED-Skin Assessment Last Done: 02/09/24 16:17
Discharge Date and Time
Discharge Date/Time: 02/09/24 18:30
[2024-02-09 16:47] VITALS: BP 152/76
[2024-02-09 17:00] VITALS: BP 140/87
--- NOTE | 2024-02-09 17:17 | EDRN ---
Pt was informed that she is to be admitted. Pt informed this RN that she is unable to stay. She told me 'I cannot afford to stay in the hospital.' She also told me ' I need to go home to take care of my son. I cannot stay and be admitted.' THis RN
spoke to Moreno FRENCH and informed him.
--- NOTE | 2024-02-09 17:18 | EDRN ---
Unable to get IV access and called IV to try. Mini JOSÉ RN VAT nurse is now in room w/ pt.
--- NOTE | 2024-02-09 17:20 | HPS.HSE ---
Family Physician
-
Family Physician: NOT KNOW UNKNOWN - PT DOES
Chief Complaint
-
chest pain
History of Present Illness
78-year-old female past medical history of paroxysmal atrial fibrillation/flutter, breast cancer, cervical cancer, COPD, hypertension, GERD, hypercholesteremia, anxiety, sciatica, hiatal hernia, diverticulitis status post bowel resection with
colostomy, presenting to the emergency room from [facility] with complaint of bleeding from colostomy site as per ER documentation. She was vague with details and not answering many questions. She has been to the hospital many times over the past
week with vague complaints.
To me she states that she came in for chest pain although she denies any chest pain at the current time. She states that she fell 8 to 10 days ago which may have caused the pain.
She also complained of some abdominal pain but admits to not eating much recently. She states that she feels depressed and feels that she is living too long but denies any suicidal ideation at this time. She denies any abnormal output from the
ostomy to me.
She was admitted to the hospital in mid December after suicide attempt and intentional overdose and was discharged to [facility].
She was here last night with depression but did not meet 302 criteria and was discharged home.
She was here on 02/02 with chest pain with negative workup.
She was seen on 02/01 with decreased oral intake.
She complains of chest pain unable to say when it started.
As per case management Adult Protective Services is involved with the patient with plan for better placement than where she resides currently.
She denies smoking or alcohol use.
Medical History
Past Medical History
Past Medical History: Reports Other (paroxysmal atrial fibrillation/flutter, breast cancer, cervical cancer, COPD, hypertension, GERD, hypercholesteremia, anxiety, sciatica, hiatal hernia, diverticulitis status post bowel resection with colostomy)
Past Surgical History: Reports Other (Bowel resection (with Colostomy due to diverticulitis) and Gynecological (D&C, Lumpectomy left))
Social History
Tobacco: Non-smoker
Alcohol: None
Drug: None
Family History
Family History: Not pertinent
Allergies / Home Medications
Allergies reflects when Allergies were last updated in [facility].
Home Medications with original date entered in [facility]
Allergy/Medication List:
Allergies
Allergy/AdvReac Type Severity Reaction Status Date / Time
lorazepam [From Ativan] Allergy pt with Verified 02/09/24 14:09
change in
mental
status,
confusion
Home Medications
dextran 70-hypromellose eye drops in a dropperette (Artificial Tears (PF) drops in a dropperette) 1 drp BOTH EYES QIDPRN PRN dry 01/11/24
hydrochlorothiazide 25 mg tablet 25 mg PO DAILY Fluid Retention/Swelling 01/11/24
alprazolam 0.25 mg tablet 0.25 mg PO Q8HPRN PRN anxiety 30 days #15 tabs 01/16/24
nicotine 14 mg/24 hr daily transdermal patch 14 mg transdermal DAILY 28 days #28 ea 01/16/24
risperidone 0.5 mg tablet 0.5 mg PO HS 30 days #30 tabs 01/16/24
Review of Systems
-
History Source: Patient
A 12 point ROS was completed and negative except as noted: Yes
Constitutional: Reports No Symptoms
EENT: Reports No Symptoms
Respiratory: Reports See HPI
Cardiac: Reports See HPI
Abdomen/GI: Reports See HPI
: Reports No Symptoms
Musculoskeletal: Reports No Symptoms
Skin: Reports No Symptoms
Neurological: Reports No Symptoms
Endocrine: Reports No Symptoms
Hematologic/Lymphatic: Reports No Symptoms
Psych: Reports No Symptoms
Physical Exam
Vital Signs
Vital Signs
Temp Pulse Resp BP Pulse Ox
97.8 F 53 22 140/87 99
02/09/24 14:10 02/09/24 17:15 02/09/24 17:15 02/09/24 17:00 02/09/24 17:15
Physical Exam
General: Well Developed, Well Nourished and No Apparent Distress
HEENT: NormoCephalic, Moist mucous membranes and Atraumatic
Respiratory: Clear
Cardiac: S1/S2 and Regular Rhythm; No Murmur or Rub
GI: Soft, Non Tender, Non Distended and Normal Bowel Sounds; No Organomegaly
Rectal: Deferred by Provider
Musculoskeletal: No Clubbing, No Cyanosis and No Edema
Skin: No Rash
Neuro: Nonfocal/grossly intact
Laboratory Results
-
02/09/24 14:28
02/09/24 14:28
Laboratory Results
PT 14.5 Sec (11.4-14.6) 02/09/24 14:27
INR 1.15 02/09/24 14:27
APTT 23.2 Sec (23.4-35.0) L 02/09/24 14:27
Total Bilirubin 0.8 mg/dl (0.2-1.3) 02/09/24 14:28
AST 29 U/L (14-36) 02/09/24 14:28
ALT 18 U/L (0-35) 02/09/24 14:28
Alkaline Phosphatase 114 U/L (38-126) 02/09/24 14:28
Data Reviewed
-
Lab Data: Labs Reviewed by me
Old Records: Reviewed
Impression/Plan
-
IMPRESSION:
PLAN:
# Chest pain musculoskeletal
-Chest tender to palpation
-Check EKG, troponin
#Hypoglycemia secondary to malnutrition/failure to thrive secondary to depression
-Blood sugar 55 on BMP
-Improved spontaneously
-Regular diet
History of depression/suicidal attempt with intentional overdose
-Not actively suicidal
-Continue Risperdal
-Continue Xanax
-Case management to arrange on placement with Adult Protective Services involvement
History of paroxysmal atrial fibrillation/flutter
-Not on anticoagulation
Chronic kidney disease
-Renal function at baseline
Essential hypertension
-Continue hydrochlorothiazide
COPD as per history
Complicated diverticulitis status post colon resection with colostomy
Smoker
-Continue nicotine patch
DNR/DNI
DVT prophylaxis�heparin
Regular diet
--- NOTE | 2024-02-09 17:45 | EDRN ---
This RN just verified from triage that this pt came to ER via ambulance. Pt continues to say to myself and anyone in room that she cannot stay, cannot be admitted because she cannot afford it and has to go home to care for her son.
--- NOTE | 2024-02-09 17:56 | EDRN ---
Pt is here for placement as she is unable to return home as she is unable to care for herself. In CM note pt was deemed competent yesterday by psych eval and today dementia was questioned on pt. Pt was refusing IV access and refusing EKG just now.
[2024-02-09 18:00] VITALS: BP 133/56
--- NOTE | 2024-02-09 18:18 | EDRN ---
Pt continues to say to me, I cannot stay, I have to leave, I cannot afford this, and I will refuse all tests.
--- NOTE | 2024-02-09 18:31 | EDRN ---
Troponin test called hemolyzed by lab and was just redrawn and sent to lab.
--- NOTE | 2024-02-09 18:42 | EDRN ---
Attempting to speak to RN about this pt. It has been deemed it is unsafe to herself if she returns home. This RN just spoke to Stephy auto cleaner at this time and she said the same. This RN also spoke to her director who informed this RN that pt
has to stay as going home would be unsafe so pt must stay unless pt can make her own arrangements to leave. Pt is talking very confused during my time with her. pt's purse per triage was left home by EMS. I just spoke to RN in pt's assignment and
she will pass on this info to new nurse at report.
[2024-02-09 18:55] VITALS: BP 150/93; BMI 26.3
[2024-02-09 19:46] LABS: Troponin I 0.026 ng/ml
[2024-02-09] MEDS: HEPARIN SC (19:52)
[2024-02-09] MEDS: RISPERDAL 0.5 MG PO (21:12)
[2024-02-09] MEDS: XANAX 0.25 MG PO (22:07)
[2024-02-09 23:09] VITALS: BP 139/73
[2024-02-10 06:44] LABS: % Basophils 0.8 % (0-2); % Eosinophils 5.4 % (0-6); % Immature Granulocytes 0.5 % (0-0.5); % Lymphocytes 10.1 % (20.5-51.1); % Monocytes 10.3 % (1.7-9.3); % Neutrophils 72.9 % (42.2-75.2); Absolute Basophils 0.1 10^3/uL (0-0.2); Absolute Eosinophils 0.4 10^3/uL (0-0.7); Absolute Lymphocytes 0.7 10^3/uL (1.2-3.4); Absolute Monocytes 0.7 10^3/uL (0.1-0.6); Absolute Neutrophils 4.8 10^3/uL (1.4-6.5); Hematocrit 33.7 % (37.0-47.0); Hemoglobin 11.6 g/dL (12.0-16.0); Mean Corp Hgb Conc. 34.4 g/dL (33.0-37.0); Mean Corpuscular Hgb 28.9 pg (27.0-31.0); Mean Platelet Volume 11.2 fL (7.4-10.4); Nucleated Red Blood Cells % 0 %; Platelet Count 265 10^3/uL (130-400); Red Blood Cell Count 4.01 10^6/uL (4.20-5.40); Red Cell Dist. Width 16.6 % (11.5-14.5); White Blood Cell Count 6.5 10^3/uL (4.8-10.8)
[2024-02-10 07:10] LABS: ALT (SGPT) 15 U/L (0-35); AST (SGOT) 24 U/L (14-36); Albumin 3.2 g/dl (3.5-5.0); Alkaline Phosphatase 97 U/L (38-126); Blood Urea Nitrogen 25 mg/dl (7-17); Calcium 8.7 mg/dl (8.4-10.2); Carbon Dioxide 22 mmol/L (22-30); Chloride 109 mmol/L (98-107); Estimated Creatinine Clearance 37 ml/min; Glucose 58 mg/dl (70-99); Potassium 3.3 mmol/L (3.5-5.1); Sodium 138 mmol/L (135-145); Total Bilirubin 0.5 mg/dl (0.2-1.3); Total Protein 5.9 g/dl (6.3-8.2); eGFR 56.95
[2024-02-10 07:57] VITALS: BP 106/46
[2024-02-10 08:10] LABS: Magnesium 2.1 mg/dl (1.6-2.3)
--- NOTE | 2024-02-10 08:11 | W.PN.HOSP.TC ---
Today's Communication/Plan
-
added labs
Psych and Colorectal Sx eval
Assessment / Plan
Assessment / Plan
78yo F with PMHx of HTN, COPD, complicated diverticulitis s/p hemicolectomy with colostomy placement in 2019, anxiety, Hx of suicidal ideations, Hx of depression, exacerbated after recently loosing her housing, Resident of the [facility] (lives
there with her son as per patient) came with vague complains: on admission c/o recurrent bleeding on her colostomy, then chest pain and next day just about 'going through the tough times' and poor memory. Patient previously was seen by neurology and
has a long Hx of dementia
A/P:
#COlostomy bleeding with mild chronic anemia
follow CBC
outpatient anemia w/u
Abd benign
COlorectal Sx eval
watch for bleeding
#Chest pain
serial troponin
EKG without TWI or ST changes
Telemetry
check TSH and lipids, if elevated - start statin
No Hx of ASCVD - no indication for primary prevention ASA, outpatient follow up with cardiology
#Hx of depression
#Dementia, unspecified
No suicidal thoughts
Psychiatry eval
Check TSH, Lyme screen, [place] screen, Head CT
#Essential HTN
#COPD not in exacerbation
cont home meds
#Hypokalemia
2/2 HCTZ
replete
#Mild hypoglycemia
most likely 2/2 poor oral intake 2/2 depression
Not DM and not on hypoglycemics
BMI 26.3, Protein serum 5.9 - no concern for long-standing malnutrition
#Social problems
CM for placement vs return to [facility]
DVT ppx hep
DNR/DNI
I have spent at least 58min reviewing chart, test results, communication with consultants and direct patient care
Anticipated Discharge: > 48 hours
Subjective/Interval History
-
Date of Service: February 10, 2024
Objective Data
-
Labs:
Laboratory Results
02/10/24
06:03
WBC 6.5
Hgb 11.6 L
Hct 33.7 L
Plt Count 265
Sodium 138
Potassium 3.3 L
Chloride 109 H
Carbon Dioxide 22
BUN 25 H
Creatinine 1.0
Glucose 58 L
Calcium 8.7
Total Bilirubin 0.5
AST 24
ALT 15
Alkaline Phosphatase 97
Vital Signs:
Vital Signs
Temp Pulse Resp BP Pulse Ox
97.8 F 62 16 106/46 95
02/10/24 07:57 02/10/24 07:57 02/10/24 07:57 02/10/24 07:57 02/10/24 07:57
I&O
02/09/24 02/10/24 02/11/24
06:59 06:59 06:59
Intake Total 240 / 240
Balance 240 / 240
Review of Systems
-
History Source: Patient
All other systems: Reviewed and negative
Psych: Reports Depressed
Physical Exam
-
General: No Apparent Distress
HEENT: Normocephalic and Atraumatic
Respiratory: Clear to Auscultation; Negative Wheezes, Rales or Rhonchi
Cardiac: Regular Rhythm
GI: Soft, Nontender and Nondistended
Genito-urinary: No Costovertebral Tender
Musculoskeletal: No Clubbing, No Cyanosis and No Edema
Skin: Warm; Negative Dry or Rash
Neuro: Awake, Alert, Oriented and AO x 3
Psych: Calm and Depressed
[2024-02-10] MEDS: ORETIC 25 MG PO (08:30)
[2024-02-10] MEDS: KCL 40 MEQ PO (08:30)
[2024-02-10] MEDS: NICODERM TRANSDERMAL 14 MG TRANSDERM (08:31)
[2024-02-10] MEDS: HEPARIN 5000 UNITS SC ×2 (08:32→19:18)
[2024-02-10 08:56] LABS: Troponin I 0.025 ng/ml
[2024-02-10 09:16] LABS: TSH Reflex To Free T4 2.43 uIU/ml (0.47-4.68)
[2024-02-10 09:59] LABS: HDL Cholesterol 47 mg/dl; LDL Cholesterol, Calculated 80 mg/dl; Total Cholesterol 146 mg/dl (50-199); Triglyceride 99 mg/dl (10-149); Very Low Density Lipoprotein 19 mg/dl (0-30)
[2024-02-10 11:30] VITALS: BP 126/55; BP 89/55; PULSE 70; O2SAT 98
[2024-02-10 11:34] VITALS: BP 121/60
--- NOTE | 2024-02-10 12:07 | W.PN.UPDATE ---
Update Note
Progress Note Update
Psychiatric evaluation dictated.
Patient reports feeling depressed, states she has been suffering with depression much of her life. Presently she has passive suicidal thoughts in that she feels her life is not worthwhile but denies active suicidal thoughts or plan. She was treated
at [facility] in the past but does not recall as to when' she once thought of stabbing herself in the chest but did not attempt it.
Cognitively she has very poor immediate recall but intermediate memory is relatively preserved.
I will order Lexapro 10 mg od to help with depression.
The question is whether she can return to [facility] or if she will need SNF; that will depend in her progress. I believe she has capacity to make decisions about her medical care.
Will F/U.
--- NOTE | 2024-02-10 12:28 | CON.CRS ---
Consultation
-
Date/Time Consultation Requested: 02/10/24 08
Requesting Provider: [facility]
Reason for Consultation: intermittent colostomy bleeding
Medical History
-
Chief Complaint: intermittent bleeding at colostomy
History of Present Illness:
78 yo female with a history of PAF not on AC, breast and cervical CA and diverticulitis with stricture with sigmoidectomy and colostomy creation in 2019 as well as a recent hospitalization for intentional drug OD in December with transfer to inpatient
psych unit thereafter who presented with complaints of chest pain and also noted intermittent light bleeding from a granulated area on her stoma. She currently has no stoma supplies at bedside and the device was unable to be changed for a full exam.
She denies nausea and vomiting. She has been tolerating a regular diet with passage of stool and flatus into the appliance.
Past Medical History
Past Medical History: Arrhythmias (PAF), Cancer (breast, cervical), COPD, Diverticulitis, GERD (damari's), HTN, Hypercholesterolemia and Psychiatric (anxiety, depression, suicide attempt, FTT)
Past Surgical History: Bowel Resection, Gynecological (D&C) and Other (Lumpectomy)
Social History
Tobacco: Non-Smoker
Alcohol: None
Family History
Family History: Other (Son with schizophrenia)
Allergies / Home Medications
Allergy/AdvReac Type Severity Reaction Status Date / Time
lorazepam [From Ativan] Allergy pt with Verified 02/09/24 14:09
change in
mental
status,
confusion
�Medication �Instructions �Recorded �Confirmed �Type
dextran 70-hypromellose eye drops 1 drp BOTH EYES QIDPRN PRN dry 01/11/24 02/09/24 History
in a dropperette (Artificial Tears
(PF) drops in a dropperette)
hydrochlorothiazide 25 mg tablet 25 mg PO DAILY Fluid 01/11/24 02/09/24 History
Retention/Swelling
alprazolam 0.25 mg tablet 0.25 mg PO Q8HPRN PRN anxiety 30 01/16/24 02/09/24 Rx
days #15 tabs
nicotine 14 mg/24 hr daily 14 mg transdermal DAILY 28 days 01/16/24 02/09/24 Rx
transdermal patch #28 ea
risperidone 0.5 mg tablet 0.5 mg PO HS 30 days #30 tabs 01/16/24 02/09/24 Rx
Review of Systems
-
A 10 point review of systems was completed, and was negative except as per HPI.
Physical Exam
Vital Signs
Temp 97.6 F 02/10/24 11:34
Pulse 85 02/10/24 11:34
Resp Rate 16 02/10/24 11:34
Blood pressure 121/60 02/10/24 11:34
SaO2 95 02/10/24 11:34
02/09/24 02/10/24 02/11/24
06:59 06:59 06:59
Actual Weight 67.268 kg
Body Mass Index (BMI) 26.3
Lab Results / Allergies
02/10/24 06:03
02/10/24 06:03
WBC 6.5 10^3/uL (4.8-10.8) 02/10/24 06:03
Hgb 11.6 g/dL (12.0-16.0) L 02/10/24 06:03
Hct 33.7 % (37.0-47.0) L 02/10/24 06:03
Plt Count 265 10^3/uL (130-400) 02/10/24 06:03
Abs Immat Gran (auto) 0.0 10^3/uL (0-0.05) 02/10/24 06:03
Neutrophils % 72.9 % (42.2-75.2) 02/10/24 06:03
Allergy/AdvReac Type Severity Reaction Status Date / Time
lorazepam [From Ativan] Allergy pt with Verified 02/09/24 14:09
change in
mental
status,
confusion
Physical Exam
General: Well Developed and No Apparent Distress
HEENT: Normocephalic
Respiratory: Non Labored Respirations
GI: Soft, Non Tender, Non Distended and Other (stoma obscured by stool/gas in appliance; no active bleeding noted and no blood in appliance)
Skin: Warm and Dry
Neuro: Awake, Alert and AO x 3
Psych: Calm
Data Reviewed
-
Labs: Labs Reviewed by me, Discussed with Physician and Discussed with Patient
Old Records: Reviewed
Assessment / Plan
-
78 yo female with h/o sigmoidectomy and colostomy creation in 2020 for diverticular stricture seen today in evaluation of intermittent stoma bleeding. Ostomy functioning well with stool/gas in appliance. Tolerating diet.
Suspect bleeding granuloma but full exam unable to be completed as no stoma supplies at bedside.
AFVSS
h/h stable
--Ordered colostomy supplies
--Will have silver nitrate available at bedside
--Plan stoma evaluation in AM with silver nitrate application if needed
[2024-02-10] MEDS: LEXAPRO 10 MG PO (13:30)
[2024-02-10] MEDS: SILVER NITRATE APPLICATOR 1 EACH TOPICAL (13:32)
[2024-02-10 15:41] VITALS: BP 119/58
--- NOTE | 2024-02-10 15:58 | CM ---
CM reviewed chart and CM consult for dc planning
PT/OT evals requested and SNF recommendations
Pt with ostomy and [place] [facility] following pt
Pt may need LT placement and thorough PASRR screen
Pt may need level II as with recent suicide attempt and psych placement
Pt with [employer] insurance and likely will need auth
CM to follow up on dc planning
TT/Dr Meza with dc barriers and complexities
Discharge Disposition- SNF, possible level II
[2024-02-10] MEDS: RISPERDAL 0.5 MG PO (21:27)
[2024-02-10] MEDS: XANAX 0.25 MG PO (22:05)
[2024-02-10 23:01] VITALS: BP 134/67
[2024-02-11 06:29] LABS: % Basophils 0.9 % (0-2); % Eosinophils 4.3 % (0-6); % Immature Granulocytes 0.3 % (0-0.5); % Lymphocytes 10.7 % (20.5-51.1); % Monocytes 8.8 % (1.7-9.3); Absolute Basophils 0.1 10^3/uL (0-0.2); Absolute Eosinophils 0.3 10^3/uL (0-0.7); Absolute Lymphocytes 0.6 10^3/uL (1.2-3.4); Absolute Monocytes 0.5 10^3/uL (0.1-0.6); Absolute Neutrophils 4.3 10^3/uL (1.4-6.5); Hematocrit 34.2 % (37.0-47.0); Hemoglobin 11.7 g/dL (12.0-16.0); Mean Corp Hgb Conc. 34.2 g/dL (33.0-37.0); Mean Corpuscular Hgb 29.5 pg (27.0-31.0); Mean Corpuscular Volume 86.4 fL (81.0-99.0); Mean Platelet Volume 10.9 fL (7.4-10.4); Nucleated Red Blood Cells % 0 %; Platelet Count 240 10^3/uL (130-400); Red Blood Cell Count 3.96 10^6/uL (4.20-5.40); Red Cell Dist. Width 16.9 % (11.5-14.5); White Blood Cell Count 5.8 10^3/uL (4.8-10.8)
[2024-02-11 06:55] LABS: ALT (SGPT) 14 U/L (0-35); AST (SGOT) 24 U/L (14-36); Albumin 3.2 g/dl (3.5-5.0); Alkaline Phosphatase 91 U/L (38-126); Blood Urea Nitrogen 30 mg/dl (7-17); Calcium 9.1 mg/dl (8.4-10.2); Carbon Dioxide 27 mmol/L (22-30); Chloride 107 mmol/L (98-107); Estimated Creatinine Clearance 31 ml/min; Glucose 86 mg/dl (70-99); Potassium 3.9 mmol/L (3.5-5.1); Sodium 138 mmol/L (135-145); Total Bilirubin 0.4 mg/dl (0.2-1.3); eGFR 45.76
[2024-02-11 07:36] VITALS: BP 118/48
[2024-02-11 08:34] LABS: Creatine Phosphokinase 34 U/L (30-135); Magnesium 2.1 mg/dl (1.6-2.3); Phosphorus 2.6 mg/dl (2.5-4.5)
[2024-02-11] MEDS: D5LR 1000 IV ×2 (08:55→21:19)
[2024-02-11] MEDS: LEXAPRO 10 MG PO (08:56)
[2024-02-11] MEDS: HEPARIN 5000 UNITS SC ×2 (08:56→20:53)
[2024-02-11] MEDS: NICODERM TRANSDERMAL 14 MG TRANSDERM (08:57)
[2024-02-11] MEDS: ORETIC 25 MG PO (08:57)
--- NOTE | 2024-02-11 10:06 | W.PN.HOSP.TC ---
Today's Communication/Plan
-
complained that she cannot move her body, but motor functions preserved. Suspect depression
[id number] for maintenance
CM for placement
Assessment / Plan
Assessment / Plan
78yo F with PMHx of HTN, COPD, complicated diverticulitis s/p hemicolectomy with colostomy placement in 2019, anxiety, Hx of suicidal ideations, Hx of depression, exacerbated after recently loosing her housing, Resident of the [facility] (lives
there with her son as per patient) came with vague complains: on admission c/o recurrent bleeding on her colostomy, then chest pain and next day just about 'going through the tough times' and poor memory. Patient previously was seen by neurology and
has a long Hx of dementia
As per CM - will need lever 2 state assessement since she cannot function with more extensive medical supervision
A/P:
#Colostomy bleeding with mild chronic anemia
follow CBC
outpatient anemia w/u
Abd benign
COlorectal Sx eval
watch for bleeding
#Chest pain
serial troponin neg
EKG without TWI or ST changes
Telemetry without arrhythmia
TSH and lipids WNL
No Hx of ASCVD - no indication for primary prevention ASA, outpatient follow up with cardiology
#MDD
#Dementia, unspecified
No suicidal thoughts
Psychiatry eval: Lexapro started
Check , Lyme screen, Syphilis screen,
Head CT without acute abnormalities
#Essential HTN
#COPD not in exacerbation
cont home meds
#Hypokalemia
2/2 HCTZ
replete
#Mild hypoglycemia
most likely 2/2 poor oral intake 2/2 depression
Not DM and not on hypoglycemics
BMI 26.3, Protein serum 5.9 - no concern for long-standing malnutrition
#Social problems
CM for placement
DVT ppx hep
DNR/DNI
I have spent at least 38min reviewing chart, test results, communication with consultants and direct patient care
Anticipated Discharge: > 48 hours
Subjective/Interval History
-
Date of Service: February 11, 2024
Objective Data
-
Labs:
Laboratory Results
02/11/24
06:11
WBC 5.8
Hgb 11.7 L
Hct 34.2 L
Plt Count 240
Sodium 138
Potassium 3.9
Chloride 107
Carbon Dioxide 27
BUN 30 H
Creatinine 1.2 H
Glucose 86
Calcium 9.1
Total Bilirubin 0.4
AST 24
ALT 14
Alkaline Phosphatase 91
Vital Signs:
Vital Signs
Temp Pulse Resp BP Pulse Ox
97.9 F 58 18 118/48 96
02/11/24 07:36 02/11/24 08:57 02/11/24 07:36 02/11/24 08:57 02/11/24 07:36
I&O
02/10/24 02/11/24 02/12/24
06:59 06:59 06:59
Intake Total 240 / 240 1660 / 1660
Output Total 220 / 220
Balance 240 / 240 1440 / 1440
Review of Systems
-
Unable to obtain full review of systems at this time due to: Dementia
History Source: Patient
Constitutional: Reports Fatigue
Physical Exam
-
General: No Apparent Distress
HEENT: Normocephalic
Cardiac: Regular Rhythm
GI: Soft, Nontender and Nondistended
Musculoskeletal: No Clubbing, No Cyanosis and No Edema
Neuro: Awake, Alert, Oriented, AO x 3 and No Motor Deficits
Psych: Calm
--- NOTE | 2024-02-11 11:49 | W.PN.UPDATE ---
Addendum entered and electronically signed by OZ Esparza 02/11/24 13:00:
correction: urgent Evon's resection by Dr. Elelr not 'by me'
Original Note:
Update Note
Progress Note Update
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
A: No active bleeding on exam. Ostomy supplies not in room yet.
B: Ostomy supplies ordered again today to have at bedside. Stoma nurse consulted. silver nitrate at bedside to potentially cauterize the area of bleeding with appliance change tomorrow.
--- NOTE | 2024-02-11 13:06 | W.PN.UPDATE ---
Update Note
Progress Note Update
Patient seems to be doing better today, less depressed, more optimistic, affect is brighter.
Agreeable to go to SNF for rehab.
Supportive intervention given.
[2024-02-11 15:00] VITALS: BP 116/49
[2024-02-11] MEDS: XANAX 0.25 MG PO (15:21)
[2024-02-11] MEDS: RISPERDAL 0.5 MG PO (20:53)
[2024-02-11 23:21] VITALS: BP 126/52
--- NOTE | 2024-02-12 08:29 | WOUNDNOTE ---
[facility] RN note: Patient admitted with chest pain.
Part of H+P '78-year-old female past medical history of paroxysmal atrial fibrillation/flutter, breast cancer, cervical cancer, COPD, hypertension, GERD, hypercholesteremia, anxiety, sciatica, hiatal hernia, diverticulitis status post bowel
resection with colostomy, presenting to the emergency room from [facility] with complaint of bleeding from colostomy site as per ER documentation. She was vague with details and not answering many questions. She has been to the hospital many
times over the past week with vague complaints'.
See H&P for complete history.
Wound Location and type/assessment: Patient admitted with: sacral/gilda mild MASD. Toe nails extremely long. Colostomy appliance intact with some loose brown stool. No stoma bleeding noted. Colostomy supply left at bedside (Ruth Ann wafer #[id number]
and Ruth Ann pouch # [id number]).
Appetite: on Regular diet. Patient is not a good historian.
Pressure redistribution devices in place: [employer] Accumax. Patient can move self in bed slowly.
Plan: Patient incontinent of large amount of urine. Gilda care given and patient turned with help from SINDI Devlin. Updated RN Nika. Recommend podiatry consult to toenail cutting. Will sign off, call if needed.
[2024-02-12] MEDS: HEPARIN 5000 UNITS SC ×2 (08:31→19:51)
[2024-02-12] MEDS: NICODERM TRANSDERMAL 14 MG TRANSDERM (08:31)
[2024-02-12] MEDS: ORETIC 25 MG PO (08:31)
[2024-02-12] MEDS: LEXAPRO 10 MG PO (08:32)
[2024-02-12 09:15] VITALS: BP 131/65
--- NOTE | 2024-02-12 09:45 | WOUNDNOTE ---
[facility] RN note: Patient seen with Dr. Eller. Colostomy appliance changed so surgeon can see stoma. Stoma pink and budded about 1 1/4 x 1 1/2 inches. Peristomal skin with mild redness locally d/t wafer opening a little large. No active bleeding from
granulomas on stoma. Ruth Ann wafer #[id number], Martita seal and Selden pouch # [id number] applied. Extra ostomy supply in room. Nursing care assist patient with routine appliance changes. Will sign off. Call if needed.
--- NOTE | 2024-02-12 11:12 | W.PN.HOSP.TC ---
Today's Communication/Plan
-
Medically stable for placement, await level2 eval by state
Assessment / Plan
Assessment / Plan
78yo F with PMHx of HTN, COPD, complicated diverticulitis s/p hemicolectomy with colostomy placement in 2019, anxiety, Hx of suicidal ideations, Hx of depression, exacerbated after recently loosing her housing, Resident of the [facility] (lives
there with her son as per patient) came with vague complains: on admission c/o recurrent bleeding on her colostomy, then chest pain and next day just about 'going through the tough times' and poor memory. Patient previously was seen by neurology and
has a long Hx of dementia
As per CM - will need lever 2 state assessement since she cannot function with more extensive medical supervision
A/P:
#Colostomy bleeding with mild chronic anemia
follow CBC
outpatient anemia w/u
Abd benign
Colorectal Sx eval: sulfasalazine and granuloma cauterization
watch for bleeding
#Chest pain
serial troponin neg
EKG without TWI or ST changes
Telemetry without arrhythmia
TSH and lipids WNL
No Hx of ASCVD - no indication for primary prevention ASA, outpatient follow up with cardiology
#MDD
#Dementia, unspecified
No suicidal thoughts
Psychiatry eval: Lexapro started
Check , Lyme screen, Syphilis screen,
Head CT without acute abnormalities
#Essential HTN
#COPD not in exacerbation
cont home meds
#Hypokalemia
2/2 HCTZ
replete
#Mild hypoglycemia
most likely 2/2 poor oral intake 2/2 depression
Not DM and not on hypoglycemics
BMI 26.3, Protein serum 5.9 - no concern for long-standing malnutrition
#Social problems
CM for placement
DVT ppx hep
DNR/DNI
I have spent at least 38min reviewing chart, test results, communication with consultants and direct patient care
Anticipated Discharge: > 48 hours
Subjective/Interval History
-
Date of Service: February 12, 2024
Objective Data
-
Vital Signs:
Vital Signs
Temp Pulse Resp BP Pulse Ox
97.7 F 57 16 131/65 99
02/12/24 09:15 02/12/24 09:15 02/12/24 09:15 02/12/24 09:15 02/12/24 09:15
I&O
02/11/24 02/12/24 02/13/24
06:59 06:59 06:59
Intake Total 1660 / 1660 1380 / 1380
Output Total 220 / 220
Balance 1440 / 1440 1380 / 1380
Review of Systems
-
Unable to obtain full review of systems at this time due to: Dementia
History Source: Patient
All other systems: Reviewed and negative
Physical Exam
-
General: No Apparent Distress
HEENT: Normocephalic, Atraumatic and Moist Mucous Membranes
Respiratory: Negative Wheezes, Rales or Rhonchi
Cardiac: Regular Rhythm
GI: Soft and Nontender
Genito-urinary: No Costovertebral Tender
Musculoskeletal: No Clubbing, No Cyanosis and No Edema
Skin: Warm
Neuro: Awake, Alert, Oriented and AO x 3
Psych: Calm
--- NOTE | 2024-02-12 13:11 | W.PN.CRS1 ---
Today's Communication / Plan
-
No acute intervention.
Disposition per hospitalist.
Assessment/Plan
-
Patient with recent low volume spotting from ostomy site. No active bleeding since admission and hemoglobin has been stable. I suspect the prior blood was from the nodules on the stoma itself. No reason to treat these at this point as they are an
active. If they do bleed again silver nitrate application may be warranted. Disposition per hospitalist.
Subjective Data
Subjective Data
Date of Service: February 12, 2024
Denies bleeding.
Objective Data
-
Vital Signs
Temp Pulse Resp BP Pulse Ox
97.7 F 57 16 131/65 99
02/12/24 09:15 02/12/24 09:15 02/12/24 09:15 02/12/24 09:15 02/12/24 12:13
Intake & Output
02/11/24 02/12/24 02/13/24
06:59 06:59 06:59
Intake Total 1660 / 1660 1380 / 1380
Output Total 220 / 220
Balance 1440 / 1440 1380 / 1380
Intake:
Oral fluids 1660 / 1660 480 / 480
IV fluids (Total) 900 / 900
Output:
Liquid stool amount 220 / 220
Colostomy 220 / 220
Other:
Number of approximated SMALL 1
amounts of urine
Number of approximated MODERATE 2
amounts of urine
Number of approximated LARGE 1 1
amounts of urine
How many times incontinent 2
MODERATE amount urine
How many times incontinent 1
SATURATED amount urine
Number of unmeasured liquid
stools
Colostomy 1
Lab Results
02/11/24 06:11
02/11/24 06:11
Physical Exam
-
General: No Acute Distress
Chest: Clear
Cardiovascular: Regular Rate & Rhythm
Abdomen: Non Distended, Non Tender and Other (Stoma viable and productive. Stoma appliance changed at the bedside with Galilea Rose of [facility] nursing. A few nodules noted on the stoma without active bleeding.)
[2024-02-12 14:56] LABS: Lyme Antibody Screen, EIA Negative (Negative)
--- NOTE | 2024-02-12 15:14 | CM ---
Reviewed the chart notes and spoke with the patient at the bedside and her sister via telephone. Patient's sister requested referral to [facility], they declined due to needs exceed their capability. Permission received from patient and sister
to send referrals to local facilities. [facility] request for Level II PASRR completed and faxed. CM continues to be available to patient/family and is monitoring medical plan for needs at discharge.
Plan: Discharge to SNF/rehab once a bed found and Level II Assessment with [facility] completed. Precert will be required.
[2024-02-12 15:30] VITALS: BP 152/73
[2024-02-12 15:43] VITALS: BP 152/73; PULSE 64; O2SAT 97
[2024-02-12 16:07] VITALS: BP 131/71; BP 152/73; PULSE 74
[2024-02-12] MEDS: RISPERDAL 0.5 MG PO (19:51)
[2024-02-12 23:29] VITALS: BP 143/74
[2024-02-13 07:35] VITALS: BP 112/63
--- NOTE | 2024-02-13 09:08 | W.PN.HOSP.TC ---
Today's Communication/Plan
-
see bold
Assessment / Plan
Assessment / Plan
78yo F with PMHx of HTN, COPD, complicated diverticulitis s/p hemicolectomy with colostomy placement in 2019, anxiety, Hx of suicidal ideations, Hx of depression, exacerbated after recently loosing her housing, Resident of the [facility] (lives
there with her son as per patient) came with vague complains: on admission c/o recurrent bleeding on her colostomy, then chest pain and next day just about 'going through the tough times' and poor memory. Patient previously was seen by neurology and
has a long Hx of dementia
A/P:
#Colostomy bleeding with mild chronic anemia
Appreciate colorectal surgery input, recommend silver nitrate at bedside
Bleeding resolved, hemoglobin stable at 11.7, about her baseline
Continue to monitor
Medically stable for discharge to short-term rehab when bed available
As per CM - will need lever 2 state assessment since she cannot function with more extensive medical supervision
#Chest pain
Serial troponins negative, EKG without TWI or ST changes
Telemetry without arrhythmia. TSH and lipids WNL
No Hx of ASCVD
No indication for primary prevention ASA, rec outpatient follow up with cardiology
#MDD
#Dementia, unspecified
Head CT without acute abnormalities, Lyme and syphilis serologies negative
Appreciate psychiatry input, started on Lexapro
Continue risperidone
#Diffuse pain
#Probable osteoarthritis
Tylenol as needed
#Essential HTN
Continue hydrochlorothiazide
#COPD not in exacerbation
Monitor
#Hypokalemia
Repleted and resolved
#Mild hypoglycemia
Most likely 2/2 poor oral intake 2/2 depression
Not DM and not on hypoglycemics
BMI 26.3, Protein serum 5.9 - no concern for long-standing malnutrition
#Social problems
CM for placement
DVT prophylaxis�subcu heparin
DNR
Total time spent to see the patient on the floor, examine the patient, review data and lab results, discuss treatment plan with patient, nursing staff around 40 minutes.
Physical Exam
General: No acute distress
HEENT: Normocephalic, Atraumatic, EOMI, MMM
Respiratory: Clear to Auscultation bilaterally
Cardiac: Normal S1/S2, Regular Rate and Rhythm
GI: Soft, Nontender, Nondistended, Normal Bowel Sounds
Ostomy noted, no bleeding
Extremities: No Clubbing, Cyanosis, or Edema
Neuro: Pleasantly confused
Psych: Calm, Cooperative
Anticipated Discharge: Within 24 hours
Subjective/Interval History
-
Date of Service: February 13, 2024
Patient complains of pain all over. No fever, no vomiting.
Objective Data
-
Vital Signs:
Vital Signs
Temp Pulse Resp BP Pulse Ox
98.3 F 58 16 112/63 97
02/13/24 07:35 02/13/24 07:35 02/13/24 07:35 02/13/24 07:35 02/13/24 07:35
I&O
02/12/24 02/13/24 02/14/24
06:59 06:59 06:59
Intake Total 1380 / 1380 410 / 410
Balance 1380 / 1380 410 / 410
[2024-02-13] MEDS: HEPARIN 5000 UNITS SC ×2 (09:10→21:25)
[2024-02-13] MEDS: LEXAPRO 5 MG PO (09:11)
[2024-02-13] MEDS: NICODERM TRANSDERMAL 14 MG TRANSDERM (09:11)
[2024-02-13] MEDS: ORETIC PO (09:14)
--- NOTE | 2024-02-13 09:15 | PTCARENOTE ---
Patient c/o of chest pain this am. Vs: 112/63,58 97%ra,16. Denies sob. Dr. Mendieta made aware. Nitrostat ordered and given as per order. plan of care ongoing.
[2024-02-13] MEDS: NITROSTAT (SUBLINGUAL) 0.4 MG SL (09:25)
[2024-02-13 09:40] LABS: Glucose - Point of Care 100 mg/dl (70-99)
[2024-02-13 09:41] VITALS: BP 127/65
--- NOTE | 2024-02-13 10:30 | PTCARENOTE ---
patient denies chest pain or sob at this time. pt seen by Dr. Mendieta at bedside. plan of care ongoing.
--- NOTE | 2024-02-13 11:18 | W.PN.UPDATE ---
Update Note
Progress Note Update
Patient seen, chart reviewed, discussed with staff. Ms. Moss had some further chest pain this AM. Currently, she feels okay but tired. She did not eat much this AM. No side effects reported with the initiation of Lexapro.
Impression/Recommendations: Major depressive disorder, recurrent; [id number] dementia - continue with Lexapro at 5mg, this could take up to 6 weeks for notable benefit but would not hastily increase as this could case side effects, awaiting
Level 2 Assessment for SNF. Psych will sign off, please call or reconsult with any new or immediate concerns.
[2024-02-13 13:58] LABS: Syphilis/T. pallidum Ab Reflex Negative (Negative)
[2024-02-13 15:10] VITALS: BP 139/68
--- NOTE | 2024-02-13 15:16 | CM ---
Received call from Marci ([phone] with the [facility] to review submitted paperwork. PASRR was edited and additional documentation was [facility] CM continues to be available to patient/family and is monitoring medical plan for needs at
discharge.
Plan: Discharge to SNF/rehab once bed found and Level II PASRR completed.
[2024-02-13] MEDS: RISPERDAL 0.5 MG PO (21:26)
[2024-02-13 23:24] VITALS: BP 147/89
[2024-02-14 07:55] VITALS: BP 136/69
--- NOTE | 2024-02-14 08:33 | W.PN.HOSP.TC ---
Today's Communication/Plan
-
Awaiting Level 2 Assessment for SNF
Assessment / Plan
Assessment / Plan
78yo F with PMHx of HTN, COPD, complicated diverticulitis s/p hemicolectomy with colostomy placement in 2019, anxiety, Hx of suicidal ideations, Hx of depression, exacerbated after recently loosing her housing, Resident of the [facility] (lives
there with her son as per patient) came with vague complains: on admission c/o recurrent bleeding on her colostomy, then chest pain and next day just about 'going through the tough times' and poor memory. Patient previously was seen by neurology and
has a long Hx of dementia
A/P:
#Colostomy bleeding with mild chronic anemia
Appreciate colorectal surgery input, recommend silver nitrate at bedside
Bleeding resolved, hemoglobin stable at 11.7, about her baseline
Continue to monitor
Medically stable for discharge to short-term rehab when bed available
As per CM - awaiting level 2 state assessment since she cannot function with more extensive medical supervision
#Chest pain
Serial troponins negative, EKG without TWI or ST changes
Telemetry without arrhythmia. TSH and lipids WNL
No Hx of ASCVD
No indication for primary prevention ASA, rec outpatient follow up with cardiology
#MDD
#Dementia, unspecified
Head CT without acute abnormalities, Lyme and syphilis serologies negative
Appreciate psychiatry input, started on Lexapro
Continue risperidone
#Diffuse pain
#Probable osteoarthritis
Tylenol as needed
#Essential HTN
Continue hydrochlorothiazide
#COPD not in exacerbation
Monitor
#Hypokalemia
Repleted and resolved
#Mild hypoglycemia
Most likely 2/2 poor oral intake 2/2 depression
Not DM and not on hypoglycemics
BMI 26.3, Protein serum 5.9 - no concern for long-standing malnutrition
#Social problems
CM for placement
DVT prophylaxis�subcu heparin
DNR
Total time spent to see the patient on the floor, examine the patient, review data and lab results, discuss treatment plan with patient, nursing staff around 35 minutes.
Physical Exam
General: No acute distress
HEENT: Normocephalic, Atraumatic, EOMI, MMM
Respiratory: Clear to Auscultation bilaterally
Cardiac: Normal S1/S2, Regular Rate and Rhythm
GI: Soft, Nontender, Nondistended, Normal Bowel Sounds
Ostomy noted, no bleeding
Extremities: No Clubbing, Cyanosis, or Edema
Neuro: Pleasantly confused
Psych: Calm, Cooperative
Anticipated Discharge: 24 - 48 hours
Subjective/Interval History
-
Date of Service: February 14, 2024
Patient denies pain. No nausea, no vomiting. No fever.
Objective Data
-
Vital Signs:
Vital Signs
Temp Pulse Resp BP Pulse Ox
97.8 F 71 18 147/89 96
02/13/24 23:24 02/13/24 23:24 02/13/24 23:24 02/13/24 23:24 02/14/24 04:51
I&O
02/13/24 02/14/24 02/15/24
06:59 06:59 06:59
Intake Total 410 / 410 550 / 550
Balance 410 / 410 550 / 550
[2024-02-14] MEDS: NICODERM TRANSDERMAL 14 MG TRANSDERM (09:19)
[2024-02-14] MEDS: LEXAPRO 5 MG PO (09:19)
[2024-02-14] MEDS: HEPARIN 5000 UNITS SC ×2 (09:19→21:27)
[2024-02-14] MEDS: ORETIC 25 MG PO (09:22)
--- NOTE | 2024-02-14 12:52 | CM ---
Addendum entered by Taylor Nicholson RN 02/14/24 14:54:
Received e-mail from [facility], agency staff will be out to perform evaluation of patient on 02/16/24 at 0900.
Original Note:
Reviewed the chart notes. Referral sent to area SNFs, most are out of network with the patient's insurance. [facility] interested, as well as, [facility]. Awaiting [facility] evaluation. CM continues to be available to patient/family and
is monitoring medical plan for needs at discharge.
Plan: Discharge to SNF/rehab once [facility] evaluation completed and a facility accepts. Precert will be required.
[2024-02-14 15:45] VITALS: BP 133/79
--- NOTE | 2024-02-14 17:13 | PTCARENOTE ---
Patient with colostomy. Soft, large, brown bm this shift. denies pain. plan of care ongoing.
[2024-02-14] MEDS: RISPERDAL 0.5 MG PO (21:28)
[2024-02-14 23:30] VITALS: BP 142/75
[2024-02-14] MEDS: XANAX 0.25 MG PO (23:31)
[2024-02-15 07:45] VITALS: BP 136/67
--- NOTE | 2024-02-15 08:39 | W.PN.HOSP.TC ---
Today's Communication/Plan
-
Awaiting Level 2 Assessment for SNF
Assessment / Plan
Assessment / Plan
78yo F with PMHx of HTN, COPD, complicated diverticulitis s/p hemicolectomy with colostomy placement in 2019, anxiety, Hx of suicidal ideations, Hx of depression, exacerbated after recently loosing her housing, Resident of the [facility] (lives
there with her son as per patient) came with vague complains: on admission c/o recurrent bleeding on her colostomy, then chest pain and next day just about 'going through the tough times' and poor memory. Patient previously was seen by neurology and
has a long Hx of dementia
A/P:
#Colostomy bleeding with mild chronic anemia
Appreciate colorectal surgery input, recommend silver nitrate at bedside
Bleeding resolved, hemoglobin stable at 11.7, about her baseline
Continue to monitor
Medically stable for discharge to short-term rehab when bed available
As per CM - awaiting level 2 state assessment since she cannot function with more extensive medical supervision
#Chest pain
Serial troponins negative, EKG without TWI or ST changes
Telemetry without arrhythmia. TSH and lipids WNL
No Hx of ASCVD
No indication for primary prevention ASA, rec outpatient follow up with cardiology
#MDD
#Dementia, unspecified
Head CT without acute abnormalities, Lyme and syphilis serologies negative
Appreciate psychiatry input, started on Lexapro
Continue risperidone
#Diffuse pain
#Probable osteoarthritis
Tylenol as needed
#Essential HTN
Continue hydrochlorothiazide
#COPD not in exacerbation
Monitor
#Hypokalemia
Repleted and resolved
#Mild hypoglycemia
Most likely 2/2 poor oral intake 2/2 depression
Not DM and not on hypoglycemics
BMI 26.3, Protein serum 5.9 - no concern for long-standing malnutrition
#Social problems
CM for placement
DVT prophylaxis�subcu heparin
DNR
Physical Exam
General: No acute distress
HEENT: Normocephalic, Atraumatic, EOMI, MMM
Respiratory: Clear to Auscultation bilaterally
Cardiac: Normal S1/S2, Regular Rate and Rhythm
GI: Soft, Nontender, Nondistended, Normal Bowel Sounds
Ostomy noted, no bleeding
Extremities: No Clubbing, Cyanosis, or Edema
Neuro: Pleasantly confused
Psych: Calm, Cooperative
Anticipated Discharge: 24 - 48 hours
Subjective/Interval History
-
Date of Service: February 15, 2024
No acute events. Denies pain. No fever, no vomiting.
Objective Data
-
Vital Signs:
Vital Signs
Temp Pulse Resp BP Pulse Ox
98.0 F 79 20 142/75 98
02/14/24 23:30 02/14/24 23:30 02/14/24 23:30 02/14/24 23:30 02/15/24 03:05
I&O
02/14/24 02/15/24 02/16/24
06:59 06:59 06:59
Intake Total 550 / 550 840 / 840
Balance 550 / 550 840 / 840
[2024-02-15 09:12] VITALS: BP 137/70; BP 91/53; PULSE 63
[2024-02-15] MEDS: LEXAPRO 5 MG PO (09:52)
[2024-02-15] MEDS: NICODERM TRANSDERMAL 14 MG TRANSDERM (09:52)
[2024-02-15] MEDS: HEPARIN 5000 UNITS SC ×2 (09:53→19:40)
[2024-02-15] MEDS: ORETIC 25 MG PO (09:53)
--- NOTE | 2024-02-15 11:43 | CM ---
Reviewed the chart notes and spoke with the patient at the bedside. Provided the patient with an e-mail that was sent to me for the patient from the [facility] informing her of the scheduled appointment tomorrow. CM continues to be available to
patient/family and is monitoring medical plan for needs at discharge.
Plan: Discharge to SNF/rehab once evaluation process is completed through the [facility] and a bed is found. Precert will be required for SNF/rehab.
[2024-02-15 15:40] VITALS: BP 148/72
[2024-02-15] MEDS: RISPERDAL 0.5 MG PO (19:40)
[2024-02-16 00:05] VITALS: BP 126/66
[2024-02-16] MEDS: HEPARIN 5000 UNITS SC ×2 (08:21→19:48)
[2024-02-16] MEDS: NICODERM TRANSDERMAL 14 MG TRANSDERM (08:21)
[2024-02-16] MEDS: ORETIC 25 MG PO (08:23)
[2024-02-16] MEDS: LEXAPRO 5 MG PO (08:23)
[2024-02-16 08:27] VITALS: BP 118/57
--- NOTE | 2024-02-16 08:47 | W.PN.HOSP.TC ---
Today's Communication/Plan
-
see bold
Assessment / Plan
Assessment / Plan
78yo F with PMHx of HTN, COPD, complicated diverticulitis s/p hemicolectomy with colostomy placement in 2019, anxiety, Hx of suicidal ideations, Hx of depression, exacerbated after recently loosing her housing, Resident of the [facility] (lives
there with her son as per patient) came with vague complains: on admission c/o recurrent bleeding on her colostomy, then chest pain and next day just about 'going through the tough times' and poor memory. Patient previously was seen by neurology and
has a long Hx of dementia
A/P:
#Colostomy bleeding with mild chronic anemia
Appreciate colorectal surgery input, recommend silver nitrate at bedside
Bleeding resolved, hemoglobin stable at 11.7, about her baseline
Continue to monitor
Medically stable for discharge to short-term rehab when bed available
As per CM - awaiting level 2 state assessment since she cannot function with more extensive medical supervision
#Chest pain
Serial troponins negative, EKG without TWI or ST changes
Telemetry without arrhythmia. TSH and lipids WNL
No Hx of ASCVD
No indication for primary prevention ASA, rec outpatient follow up with cardiology
#MDD
#Dementia, unspecified
Head CT without acute abnormalities, Lyme and syphilis serologies negative
Appreciate psychiatry input, started on Lexapro
Continue risperidone
#Diffuse pain
#Probable osteoarthritis
Tylenol as needed
#Essential HTN
Continue hydrochlorothiazide
#COPD not in exacerbation
Monitor
#Hypokalemia
Repleted and resolved
#Mild hypoglycemia
Most likely 2/2 poor oral intake 2/2 depression
Not DM and not on hypoglycemics
BMI 26.3, Protein serum 5.9 - no concern for long-standing malnutrition
#Social problems
CM for placement
DVT prophylaxis�subcu heparin
DNR
Physical Exam
General: No acute distress
HEENT: Normocephalic, Atraumatic, EOMI, MMM
Respiratory: Clear to Auscultation bilaterally
Cardiac: Normal S1/S2, Regular Rate and Rhythm
GI: Soft, Nontender, Nondistended, Normal Bowel Sounds
Ostomy noted, no bleeding
Extremities: No Clubbing, Cyanosis, or Edema
Neuro: Pleasantly confused
Psych: Calm, Cooperative
Anticipated Discharge: 24 - 48 hours
Subjective/Interval History
-
Date of Service: February 16, 2024
Patient denies pain. No fever, no vomiting.
Objective Data
-
Vital Signs:
Vital Signs
Temp Pulse Resp BP Pulse Ox
97.3 F 85 16 118/57 95
02/16/24 08:27 02/16/24 08:27 02/16/24 08:27 02/16/24 08:27 02/16/24 08:27
I&O
02/15/24 02/16/24 02/17/24
06:59 06:59 06:59
Intake Total 840 / 840 120 / 120
Balance 840 / 840 120 / 120
--- NOTE | 2024-02-16 11:52 | W.DCSUMMARY ---
Discharge Summary
Discharge Data
Date of Admission: 01/11/24
Date of Discharge: 01/19/24
-
Pending Results: No
Hospital Course
Presented with intentional overdose, initially was on 302 however this was discharged as it was felt by psychiatry she was not a harm to herself. However today began asking for a knife to hand her life therefore suicidal ideations. 302 back in
chart.
Suicidal ideation 302, one-to-one, psychiatry following, cannot leave AMA
Hypokalemia replete. Repeat BMP tomorrow a.m.
BUDDY resolved
CKD 3a-3b, monitor UOP, avoid nephrotoxins and hypotension, outpatient neph follow up, no indication for sports management internship/alkali therapy.
Prolonged QT avoid agents that prolong. Check EKG tomorrow AM
Will need AIP
-cxr and covid ordered
Discharge Plan
-
Patient Disposition: Psych Facility
Discharge Diagnosis/Procedures: intentional overdose
Activity Restrictions/Additional Instructions:
Routine colostomy care. Change colsotomy appliance 2 times a week and as needed for leakage (Ruth Ann wafer # [id number], Ruth Ann pouch # [id number], use Martita seal if leakage occures).
Barrier ointment to mary ellen/sacral skin bid.
Make appointment with concrete block molder for toenail cutting.
Referrals:
UNKNOWN - PT DOES,NOT KNOW [Family Provider] -
Prescriptions:
No Action
hydrochlorothiazide 25 mg Tablet
25 mg PO DAILY
Artificial Tears (PF) Dropperette
1 drp BOTH EYES QIDPRN PRN (Reason: dry eyes )
nicotine 14 mg/24 hr Patch 24 Hour
14 mg transdermal DAILY 28 Days Qty: 28 0RF
alprazolam 0.25 mg Tablet
0.25 mg PO Q8HPRN PRN (Reason: anxiety) 30 Days Qty: 15 0RF
risperidone 0.5 mg Tablet
0.5 mg PO HS 30 Days Qty: 30 0RF
Discharge Date and Time
Print Language: SYRIAC
--- NOTE | 2024-02-16 12:29 | CM ---
Yesica Cruz from [facility] here today to complete Assessment for SNF placement
--- NOTE | 2024-02-16 15:50 | PTCARENOTE ---
This RN went in to check if this pt had to go to the bathroom, pt was not responding to this RN even with deep sternal rubbing. Vital signs were stable, BP 118/59. Two physical therapists and this RN picked patient up out of chair and placed her
back to bed. Only responses from patient were physical resistance to standing and pushing hands away with sternal rubbing. No verbal response from pt, eyes stayed close entire time. Meals have also been refused from this pt today as well, pt
previously presenting very depressed this AM. made aware of this occurrence, no new orders at this time.
[2024-02-16 16:50] VITALS: BP 118/59
[2024-02-16] MEDS: NSS 1000 IV (17:48)
[2024-02-16] MEDS: RISPERDAL 0.5 MG PO (19:48)
[2024-02-16 23:26] VITALS: BP 143/74
--- NOTE | 2024-02-17 07:19 | W.PN.HOSP.TC ---
Today's Communication/Plan
-
Haldol 2 mg IM now and as needed
Asked psychiatry to reassess
Assessment / Plan
Assessment / Plan
78yo F with PMHx of HTN, COPD, complicated diverticulitis s/p hemicolectomy with colostomy placement in 2019, anxiety, Hx of suicidal ideations, Hx of depression, exacerbated after recently loosing her housing, Resident of the [facility] (lives
there with her son as per patient) came with vague complains: on admission c/o recurrent bleeding on her colostomy, then chest pain and next day just about 'going through the tough times' and poor memory. Patient previously was seen by neurology and
has a long Hx of dementia
A/P:
#Colostomy bleeding with mild chronic anemia
Appreciate colorectal surgery input, recommend silver nitrate at bedside
Bleeding resolved, hemoglobin stable at 11.7, about her baseline
Continue to monitor
Medically stable for discharge to short-term rehab when bed available
As per CM - awaiting level 2 state assessment since she cannot function with more extensive medical supervision
#MDD
#Dementia with behavioral disturbance and agitation
Head CT without acute abnormalities, Lyme and syphilis serologies negative
Appreciate psychiatry input, started on Lexapro
Continue risperidone
Haldol 2 mg IM now and as needed
Asked psychiatry to reassess
#Chest pain
Serial troponins negative, EKG without TWI or ST changes
Telemetry without arrhythmia. TSH and lipids WNL
No Hx of ASCVD
No indication for primary prevention ASA, rec outpatient follow up with cardiology
#Diffuse pain
#Probable osteoarthritis
Tylenol as needed
#Essential HTN
Continue hydrochlorothiazide
#COPD not in exacerbation
Monitor
#Hypokalemia
Repleted and resolved
#Mild hypoglycemia
Most likely 2/2 poor oral intake 2/2 depression
Not DM and not on hypoglycemics
BMI 26.3, Protein serum 5.9 - no concern for long-standing malnutrition
#Social problems
CM for placement
DVT prophylaxis�subcu heparin
DNR
Total time spent to see the patient on the floor, examine the patient, review data and lab results, discuss treatment plan with patient, nursing staff around 50 minutes.
Physical Exam
General: No acute distress
HEENT: Normocephalic, Atraumatic, EOMI, MMM
Respiratory: Clear to Auscultation bilaterally
Cardiac: Normal S1/S2, Regular Rate and Rhythm
GI: Soft, Nontender, Nondistended, Normal Bowel Sounds
Ostomy noted, no bleeding
Extremities: No Clubbing, Cyanosis, or Edema
Neuro: Pleasantly confused
Psych: Calm, Cooperative
Anticipated Discharge: 24 - 48 hours
Subjective/Interval History
-
Date of Service: February 17, 2024
Patient ate dinner yesterday. She refused breakfast and lunch, and did not want to be bothered. This morning, she is agitated, and delusional. No fever, no vomiting.
Objective Data
-
Vital Signs:
Vital Signs
Temp Pulse Resp BP Pulse Ox
98.3 F 94 18 143/74 97
02/16/24 23:26 02/16/24 23:26 02/16/24 23:26 02/16/24 23:26 02/17/24 05:45
I&O
02/16/24 02/17/24 02/18/24
06:59 06:59 06:59
Intake Total 120 / 120 265 / 265
Balance 120 / 120 265 / 265
[2024-02-17] MEDS: NSS 1000 IV (07:42)
[2024-02-17 07:45] VITALS: BP 153/63
[2024-02-17] MEDS: HEPARIN 5000 UNITS SC ×2 (07:55→19:44)
[2024-02-17] MEDS: LEXAPRO PO ×2 (07:55→08:09)
[2024-02-17] MEDS: NICODERM TRANSDERMAL 14 MG TRANSDERM (07:55)
[2024-02-17] MEDS: ORETIC PO (07:57)
[2024-02-17] MEDS: HALDOL 2 MG IM ×3 (09:52→23:13)
--- NOTE | 2024-02-17 10:36 | PTCARENOTE ---
Patient extremely agitated this AM, attempting to get out of bed and stating she needs to leave because 'the hospital is going to explode.' Patient unable to be redirected, not receptive to teaching by this RN and tech. Patient assisted into alis
chair but grabbing tray table and continuously attempting to slip out of chair/move chair around room. Medsitter and bed/chair alarms in place. Patient refusing AM pills, refusing ostomy appliance change at this time, fresh ostomy bag placed on
appliance by this RN. MD at bedside, IM haldol ordered per MD, patient assisted back to bed and haldol administered by this RN - see AUG. Urine sample ordered per MD, patient states she is unable to void at this time, bladder scan 88ml. Bed alarm
and medsitter in place, call clarke placed within reach of patient in bed.
--- NOTE | 2024-02-17 11:54 | W.PN.UPDATE ---
Update Note
Progress Note Update
Called for psychiatric follow up after episode of severe agitation this morning during which she stated she needed to leave immediately bc the hospital was going to explode. She received Haldol 2mg IM. Chart reviewed. Last seen by psych 02/12. Meds
include lexapro 5mg daily, Risperdal 0.5mg HS, and Haldol/Xanax PRNs. At this time patient is calm and states she does not remember why she was agitated this morning. She perseverates on not having money to pay for this hospitalization. She is
oriented to self and knows she is at [facility] and that the year is 2023 but cannot give the month/day/date.
A/P- 78 yo female with depression and dementia with episode of acute agitation as noted above, which has resolved. Can continue with current medications including PRN Haldol for agitation and monitor to see if there is a recurrence. If so, will
consider increase in HS Risperdal. Psychiatry will check back in tomorrow.
[2024-02-17 13:46] LABS: Urine Albumin Trace (Neg - Trace); Urine Bilirubin Negative (Negative); Urine Character Clear (Clear); Urine Color Yellow; Urine Glucose Negative (Negative); Urine Ketone Negative (Negative); Urine Leukocyte Trace (Negative); Urine Nitrite Positive (Negative); Urine Occult Blood Negative (Negative); Urine Specific Gravity 1.015 (<1.030); Urine Urobilinogen Negative (Neg - 1+); Urine pH 6.5 (5.0-9.0)
[2024-02-17 14:02] LABS: % Basophils 0.6 % (0-2); % Eosinophils 1.1 % (0-6); % Immature Granulocytes 0.4 % (0-0.5); % Lymphocytes 7.8 % (20.5-51.1); % Monocytes 10.1 % (1.7-9.3); Absolute Eosinophils 0.1 10^3/uL (0-0.7); Absolute Lymphocytes 0.6 10^3/uL (1.2-3.4); Absolute Monocytes 0.7 10^3/uL (0.1-0.6); Absolute Neutrophils 5.6 10^3/uL (1.4-6.5); Hematocrit 35.2 % (37.0-47.0); Hemoglobin 12.4 g/dL (12.0-16.0); Mean Corp Hgb Conc. 35.2 g/dL (33.0-37.0); Mean Corpuscular Hgb 28.9 pg (27.0-31.0); Mean Corpuscular Volume 82.1 fL (81.0-99.0); Nucleated Red Blood Cells % 0 %; Red Blood Cell Count 4.29 10^6/uL (4.20-5.40); Red Cell Dist. Width 16.6 % (11.5-14.5)
[2024-02-17 14:21] LABS: Urine Bacteria Many (Negative); Urine Red Blood Cell 0-2 /HPF (0-2)
[2024-02-17 14:25] LABS: ALT (SGPT) 20 U/L (0-35); AST (SGOT) 31 U/L (14-36); Albumin 3.5 g/dl (3.5-5.0); Alkaline Phosphatase 115 U/L (38-126); Blood Urea Nitrogen 29 mg/dl (7-17); Calcium 8.9 mg/dl (8.4-10.2); Carbon Dioxide 26 mmol/L (22-30); Chloride 103 mmol/L (98-107); Estimated Creatinine Clearance 34 ml/min; Glucose 105 mg/dl (70-99); Potassium 3.4 mmol/L (3.5-5.1); Sodium 136 mmol/L (135-145); Total Bilirubin 0.7 mg/dl (0.2-1.3); Total Protein 6.5 g/dl (6.3-8.2)
[2024-02-17 15:50] VITALS: BP 139/70
[2024-02-17] MEDS: KCL 20 MEQ PO (15:56)
--- NOTE | 2024-02-17 16:00 | PTCARENOTE ---
Patient agitated and anxious in room, repeatedly setting off medsitter/attempting to get OOB independently. Patient stating she needs to leave because 'the alarms are going off' and 'the hospital is going to explode.' Patient unable to be
redirected/reoriented. PRN IM haldol administered to patient by this RN - see AUG. Psychiatry made aware of haldol administration.
[2024-02-17] MEDS: STERILE WATER FOR INJECTION 10 ML IV (17:25)
[2024-02-17] MEDS: ROCEPHIN 1000 MG IV (17:25)
[2024-02-17 17:48] LABS: Magnesium 1.8 mg/dl (1.6-2.3); Phosphorus 2.9 mg/dl (2.5-4.5)
--- NOTE | 2024-02-17 18:00 | PTCARENOTE ---
Patient with no urge to void or urine output throughout shift other than straight cath of 200 ml earlier in afternoon by this RN for urine sample per MD. Patient bladder scanned by this RN with assistance of Pily MCWILLIAMS for 48 ml. Patient denies urge to
void at this time.
--- NOTE | 2024-02-17 18:30 | PTCARENOTE ---
Patient's R FA IV slightly swollen around insertion site upon assessment by this RN, IVF placed on standby and IV team asked to assess. Patient's RUE nicotine patch noted to be off arm upon assessment by this RN, patient stated 'I took it off and
threw it away.' Patient repositioned in bed with dinner at bedside, call clarke, medsitter and bed alarm in place.
[2024-02-17] MEDS: XANAX 0.25 MG PO (21:40)
[2024-02-17] MEDS: RISPERDAL 0.5 MG PO (21:40)
[2024-02-17 23:35] VITALS: BP 119/57
[2024-02-18] MEDS: NSS 1000 IV ×2 (02:36→15:02)
[2024-02-18] MEDS: HALDOL 2 MG IM (03:15)
--- NOTE | 2024-02-18 03:36 | PTCARENOTE ---
Patient anxious and restless this shift; patient states that she is going home; continues to attempt to get OOB; unable to redirect her; patient has received Risperdal HS, Xanax @ 1450, and Haldol IM twice @ 2903 & 0655; medications unsuccessful.
[2024-02-18 04:03] LABS: Glucose - Point of Care 83 mg/dl (70-99)
--- NOTE | 2024-02-18 06:44 | W.PN.UPDATE ---
Update Note
Progress Note Update
RN notified SPORTS NUTRITIONIST. Patient continuos to try to leave from the hospital, and getting out of bed. per RN patient received Haldol twice, Risperdal, and Xanax without much improvement. RN requesting restraints for protective reasons. Will place
restraints.
[2024-02-18 07:40] VITALS: BP 132/58
[2024-02-18] MEDS: LEXAPRO 5 MG PO (07:59)
[2024-02-18] MEDS: HEPARIN 5000 UNITS SC ×2 (07:59→19:23)
[2024-02-18] MEDS: NICODERM TRANSDERMAL 14 MG TRANSDERM (08:00)
--- NOTE | 2024-02-18 08:18 | W.PN.HOSP.TC ---
Today's Communication/Plan
-
see bold
Assessment / Plan
Assessment / Plan
78yo F with PMHx of HTN, COPD, complicated diverticulitis s/p hemicolectomy with colostomy placement in 2019, anxiety, Hx of suicidal ideations, Hx of depression, exacerbated after recently loosing her housing, Resident of the [facility] (lives
there with her son as per patient) came with vague complains: on admission c/o recurrent bleeding on her colostomy, then chest pain and next day just about 'going through the tough times' and poor memory. Patient previously was seen by neurology and
has a long Hx of dementia
A/P:
#Colostomy bleeding with mild chronic anemia
Appreciate colorectal surgery input, recommend silver nitrate at bedside
Bleeding resolved, hemoglobin stable at 11.7, about her baseline
Continue to monitor
Medically stable for discharge to short-term rehab when bed available
As per CM - awaiting level 2 state assessment since she cannot function with more extensive medical supervision
#MDD
#Dementia with behavioral disturbance and agitation
Head CT without acute abnormalities, Lyme and syphilis serologies negative
Appreciate psychiatry input, started on Lexapro
Continue risperidone
Appreciate psychiatry input, Risperdal increased to 1 mg at bedtime
As needed Haldol changed to as needed Zyprexa
# Asymptomatic bacteriuria
Urine cultures with mixed george, discontinue Rocephin
#Chest pain
Serial troponins negative, EKG without TWI or ST changes
Telemetry without arrhythmia. TSH and lipids WNL
No Hx of ASCVD
No indication for primary prevention ASA, rec outpatient follow up with cardiology
#Diffuse pain
#Probable osteoarthritis
Tylenol as needed
#Essential HTN
Hold hydrochlorothiazide for soft BP
#Hypokalemia
Repleted, follow-up on repeat labs
#COPD not in exacerbation
Monitor
#Mild hypoglycemia
Most likely 2/2 poor oral intake 2/2 depression
Not DM and not on hypoglycemics
BMI 26.3, Protein serum 5.9 - no concern for long-standing malnutrition
#Social problems
CM for placement
DVT prophylaxis�subcu heparin
DNR
Total time spent to see the patient on the floor, examine the patient, review data and lab results, discuss treatment plan with patient, nursing staff around 51 minutes.
Physical Exam
General: No acute distress
HEENT: Normocephalic, Atraumatic
Respiratory: Clear to Auscultation bilaterally
Cardiac: Normal S1/S2, Regular Rate and Rhythm
GI: Soft, Nontender, Nondistended, Normal Bowel Sounds
Ostomy noted, no bleeding
Extremities: No Clubbing, Cyanosis, or Edema
Neuro: Somnolent
Psych: Calm, Cooperative
Anticipated Discharge: 24 - 48 hours
Subjective/Interval History
-
Date of Service: February 17, 2024
Patient was agitated overnight, requiring IM Haldol and restraints. No fever, no vomiting.
Objective Data
-
Labs:
Laboratory Results
02/17/24
13:43
WBC 7.0
Hgb 12.4
Hct 35.2 L
Plt Count Not Reportable
Sodium 136
Potassium 3.4 L
Chloride 103
Carbon Dioxide 26
BUN 29 H
Creatinine 1.1 H
Glucose 105 H
Calcium 8.9
Total Bilirubin 0.7
AST 31
ALT 20
Alkaline Phosphatase 115
Vital Signs:
Vital Signs
Temp Pulse Resp BP Pulse Ox
98.3 F 85 18 93/73 97
02/16/24 23:26 02/17/24 07:57 02/16/24 23:26 02/17/24 07:57 02/17/24 10:31
I&O
02/16/24 02/17/2424
06:59 06:59 06:59
Intake Total 120 / 120 265 / 265
Balance 120 / 120 265 / 265
--- NOTE | 2024-02-18 10:38 | W.PN.UPDATE ---
Update Note
Progress Note Update
Psychiatry follow up for management of agitation in context of dementia. Per nursing and chart, patient became agitated again overnight and this morning trying to leave the hospital. She received 2 Haldol PRN doses as well as Xanax PRN, none of
which helped too much. At this time she somnolent but arousable and remains markedly confused.
QTC today 457
A/P- 78 yo female with dementia and depression showing increase in agitation. Will increase Risperdal to 1mg HS and switch Haldol PRN to Zyprexa PRN to see if patient responds better to these changes. Recommend EKG monitoring when antipsychotics are
used to monitor Qtc. Will follow chemistry for sodium levels given recent start of Lexapro.
[2024-02-18 15:35] VITALS: BP 155/65
[2024-02-18] MEDS: ROCEPHIN 1000 MG IV (17:08)
[2024-02-18] MEDS: STERILE WATER FOR INJECTION 10 ML IV (17:09)
--- NOTE | 2024-02-18 19:29 | PTCARENOTE ---
AAOX1 /2 compliant and anxious at times. Restrains removed. Medsitter monitor still at bedside.
[2024-02-18] MEDS: RISPERDAL 1 MG PO (21:46)
[2024-02-18 23:07] VITALS: BP 181/83
[2024-02-18 23:26] VITALS: BP 167/83
[2024-02-18] MEDS: NSS IV (23:26)
[2024-02-19 03:23] VITALS: BP 151/79
[2024-02-19 07:40] VITALS: BP 137/53
[2024-02-19] MEDS: HEPARIN 5000 UNITS SC ×2 (08:19→20:05)
[2024-02-19] MEDS: LEXAPRO 5 MG PO (08:19)
[2024-02-19] MEDS: NICODERM TRANSDERMAL 14 MG TRANSDERM (08:19)
[2024-02-19 10:47] LABS: Blood Urea Nitrogen 12 mg/dl (7-17); Calcium 8.8 mg/dl (8.4-10.2); Carbon Dioxide 23 mmol/L (22-30); Chloride 105 mmol/L (98-107); Estimated Creatinine Clearance 46 ml/min; Glucose 80 mg/dl (70-99); Potassium 3.9 mmol/L (3.5-5.1); Sodium 136 mmol/L (135-145); eGFR > 60.00
--- NOTE | 2024-02-19 10:49 | PTCARENOTE ---
pt comfortable within the room and nicotine patch placed on R upper back. pt currently out of bed in chair after working with PT. chair alarm in place and pt currently eating breakfast.
[2024-02-19 11:05] VITALS: BP 140/74; PULSE 63; O2SAT 95
--- NOTE | 2024-02-19 11:21 | W.PN.UPDATE ---
Update Note
Progress Note Update
Pt seen, reviewed with nursing staff. Pt sitting up in chair, in no distress. Pt denies feeling depressed, affect in pleasant. She denies side effects on Lexapro, started one week ago. Pt noted to be agitated the past 2 mornings, wanting to
leave. Risperidone was increased at HS from home dose over the weekend. Nursing staff reports pt has been calm this morning but has been eager to leave since admission. No signs of EPS, pt appears slightly sleepy.
Imp: Unspecified depression
Dementia with agitation
Rec: would continue current doses of Lexapro (needs a few more weeks for therapeutic effect) and Risperidone
will folllow
--- NOTE | 2024-02-19 11:35 | CM ---
Reviewed the chart notes. OBRA letter received. No further review required by the Office of Mental Health and Substance Abuse Services. Additional referrals sent via [facility]. CM continues to be available to patient/family and is monitoring
medical plan for needs at discharge.
Plan: Discharge to SNF/rehab once bed found and precert obtained.
[2024-02-19 12:08] LABS: Hematocrit 39.1 % (37.0-47.0); Hemoglobin 13.4 g/dL (12.0-16.0); Mean Corp Hgb Conc. 34.3 g/dL (33.0-37.0); Mean Corpuscular Hgb 28.9 pg (27.0-31.0); Mean Corpuscular Volume 84.3 fL (81.0-99.0); Mean Platelet Volume 11.5 fL (7.4-10.4); Platelet Count 270 10^3/uL (130-400); Red Blood Cell Count 4.64 10^6/uL (4.20-5.40); Red Cell Dist. Width 17.2 % (11.5-14.5); White Blood Cell Count 7.7 10^3/uL (4.8-10.8)
--- NOTE | 2024-02-19 13:26 | W.PN.HOSP.TC ---
Today's Communication/Plan
-
CM to continue attempts for the placement
Assessment / Plan
Assessment / Plan
78yo F with PMHx of HTN, COPD, complicated diverticulitis s/p hemicolectomy with colostomy placement in 2019, anxiety, Hx of suicidal ideations, Hx of depression, exacerbated after recently loosing her housing, Resident of the [facility] (lives
there with her son as per patient) came with vague complains: on admission c/o recurrent bleeding on her colostomy, then chest pain and next day just about 'going through the tough times' and poor memory. Patient previously was seen by neurology and
has a long Hx of dementia
As per CM - will need lever 2 state assessement since she cannot function with more extensive medical supervision
A/P:
#Colostomy bleeding with mild chronic anemia
follow CBC
outpatient anemia w/u
Abd benign
Colorectal Sx eval: sulfasalazine and granuloma cauterization
watch for bleeding
#Chest pain
serial troponin neg
EKG without TWI or ST changes
Telemetry without arrhythmia
TSH and lipids WNL
No Hx of ASCVD - no indication for primary prevention ASA, outpatient follow up with cardiology
#MDD
#Dementia, unspecified
No suicidal thoughts
Psychiatry eval: Lexapro started
Check , Lyme screen, Syphilis screen,
Head CT without acute abnormalities
#Essential HTN
#COPD not in exacerbation
cont home meds
#Hypokalemia
2/2 HCTZ
replete
#Mild hypoglycemia
most likely 2/2 poor oral intake 2/2 depression
Not DM and not on hypoglycemics
BMI 26.3, Protein serum 5.9 - no concern for long-standing malnutrition
#Social problems
CM for placement
DVT ppx hep
DNR/DNI
I have spent at least 38min reviewing chart, test results, communication with consultants and direct patient care
Anticipated Discharge: > 48 hours
Subjective/Interval History
-
Date of Service: February 19, 2024
Objective Data
-
Labs:
Laboratory Results
02/19/24 02/19/24
09:16 11:17
WBC 7.7
Hgb 13.4
Hct 39.1
Plt Count 270
Sodium 136
Potassium 3.9
Chloride 105
Carbon Dioxide 23
BUN 12
Creatinine 0.8
Glucose 80
Calcium 8.8
Vital Signs:
Vital Signs
Temp Pulse Resp BP Pulse Ox
97.6 F 65 16 137/53 95
02/19/24 07:40 02/19/24 07:40 02/19/24 07:40 02/19/24 07:40 02/19/24 07:40
I&O
02/18/24 02/19/24 02/20/24
06:59 06:59 06:59
Intake Total 840 / 840 1215 / 1215
Output Total 200 / 200
Balance 640 / 640 1215 / 1215
Review of Systems
-
History Source: Patient
All other systems: Reviewed and negative
Physical Exam
-
General: No Apparent Distress
HEENT: Normocephalic
Respiratory: Clear to Auscultation
GI: Soft, Nontender and Nondistended
Skin: Warm
Neuro: Awake, Alert, Oriented and AO x 3
Psych: Calm
--- NOTE | 2024-02-19 14:22 | PN.CDI ---
CDI
- -
CDI:
Physician Documentation Request
Admit Date: 02/12/24 09:37
Dear Doctor Susana,
Patient admitted with colostomy bleeding.
Laboratory Tests
02/09/24 02/19/24
14:28 09:16
Creatinine 1.3 H 0.8
Clarify which of the following accurately represents the patient's renal status:
BUDDY, POA
Rise in creatinine
Other
Criteria for BUDDY*
1 Increase in serum creatinine by > or = to 0.3 mg/dL (> or = to 26.5 micromol/L) within 48 hours, OR
2 Increase in serum creatinine to > or = to 1.5 times baseline, which is known or presumed to have occurred within 7 days, OR
3 Urine volume < 0.5 nL/kg/hour for six hours
Use of terms such as suspected, likely, concern for, or probable (associated with a specific diagnosis that is being evaluated, monitored, or treated as if it exists) are acceptable and can be coded in the inpatient setting, when documented at the
time of discharge.
Thank you,
Isela Singh RN, BSN
CDI Specialist
Available via [employer] text
Please use your independent medical judgment in providing your response.
*Source: Kidney Disease: Improving Global Outcomes (KDIGO) 2012
[2024-02-19 15:35] VITALS: BP 123/63
[2024-02-19] MEDS: ROCEPHIN 1000 MG IV (17:45)
[2024-02-19] MEDS: STERILE WATER FOR INJECTION 10 ML IV (17:45)
[2024-02-19 18:11] VITALS: BMI 26.3
[2024-02-19] MEDS: RISPERDAL 1 MG PO (21:06)
[2024-02-19 22:55] VITALS: BP 136/58
[2024-02-20 07:55] VITALS: BP 107/60
[2024-02-20] MEDS: HEPARIN 5000 UNITS SC (08:28)
[2024-02-20] MEDS: LEXAPRO 5 MG PO (08:28)
[2024-02-20] MEDS: NICODERM TRANSDERMAL 14 MG TRANSDERM (08:28)
--- NOTE | 2024-02-20 10:27 | CM ---
Addendum entered by Taylor Nicholson RN 02/20/24 15:11:
IMM placed on chart.
Addendum entered by Taylor Nicholson RN 02/20/24 14:59:
Patient's sister informed of discharge plan and is in agreement with the plan.
Call report to: [phone] (Ivette Lujan)
Fax report to: [phone]
Medical and transport forms on chart.
Addendum entered by Taylor Nicholson RN 02/20/24 14:47:
Approved for 7 days 02/19-02/26; Auth [id number]; NRD 02/26; call [facility] ([phone]).
Addendum entered by Taylor Nicholson RN 02/20/24 12:15:
Call placed to [facility] ([phone]). Informed would need to submit auth through [employer]. CM attempted unsuccessful. [facility] outside sales representative then provided other way to submit is by downloading and faxing request. Auth Request
Form filled out from [facility] website and faxed with clinicals to ([phone]).
Addendum entered by Tayolr Nicholson RN 02/20/24 10:37:
[facility] NPI# [id number]
Dr. Stanislav Harris NPI# [id number]
Original Note:
Reviewed the chart notes and spoke with [facility] ([phone]). She follows the patient. She requested clinicals be faxed to ([phone]), faxed. [facility] has offered a bed for the patient. Patient agreeable. Precert
will be required. CM continues to be available to patient/family and is monitoring medical plan for needs at discharge.
Plan: Discharge to SNF/rehab once medically stable, bed secured and precert obtained.
--- NOTE | 2024-02-20 11:20 | W.PN.HOSP.TC ---
Today's Communication/Plan
-
awaiting for CM for placement
Assessment / Plan
Assessment / Plan
78yo F with PMHx of HTN, COPD, complicated diverticulitis s/p hemicolectomy with colostomy placement in 2019, anxiety, Hx of suicidal ideations, Hx of depression, exacerbated after recently loosing her housing, Resident of the [facility] (lives
there with her son as per patient) came with vague complains: on admission c/o recurrent bleeding on her colostomy, then chest pain and next day just about 'going through the tough times' and poor memory. Patient previously was seen by neurology and
has a long Hx of dementia
As per CM - will need lever 2 state assessment since she cannot function with more extensive medical supervision
A/P:
#Colostomy bleeding with mild chronic anemia
follow CBC
outpatient anemia w/u
Abd benign
Colorectal Sx eval: silver nitrate as needed
watch for bleeding
watch for abd pain
#Chest pain
serial troponin neg
EKG without TWI or ST changes
Telemetry without arrhythmia
TSH and lipids WNL
No Hx of ASCVD - no indication for primary prevention ASA, outpatient follow up with cardiology
#MDD
#Dementia, unspecified
No suicidal thoughts
Psychiatry eval: Lexapro started
Check , Lyme screen, Syphilis screen,
Head CT without acute abnormalities
#Essential HTN
#COPD not in exacerbation
cont home meds
#Hypokalemia
2/2 HCTZ
replete
#Mild hypoglycemia
most likely 2/2 poor oral intake 2/2 depression
Not DM and not on hypoglycemics
BMI 26.3, Protein serum 5.9 - no concern for long-standing malnutrition
#Social problems
CM for placement
#BUDDY
2/2 poor oral intake
resolve
periodic BMP
DVT ppx hep
DNR/DNI
I have spent at least 38min reviewing chart, test results, communication with consultants and direct patient care
Anticipated Discharge: > 48 hours
Subjective/Interval History
-
Date of Service: February 20, 2024
Objective Data
-
Vital Signs:
Vital Signs
Temp Pulse Resp BP Pulse Ox
98.0 F 80 16 107/60 97
02/20/24 07:55 02/20/24 07:55 02/20/24 07:55 02/20/24 07:55 02/20/24 10:48
I&O
02/19/24 02/20/24 02/21/24
06:59 06:59 06:59
Intake Total 1215 / 1215 480 / 480
Balance 1215 / 1215 480 / 480
Review of Systems
-
History Source: Patient
All other systems: Reviewed and negative
Physical Exam
-
General: Well Developed
HEENT: Normocephalic and Atraumatic
Respiratory: Clear to Auscultation
Cardiac: Regular Rhythm
GI: Soft, Nontender, Nondistended and Ostomy (with gas and scattered fluid)
Neuro: Awake, Alert, Oriented and AO x 3
Psych: Calm
[2024-02-20 11:33] VITALS: BP 107/77; PULSE 80
--- NOTE | 2024-02-20 15:06 | W.DCSUMMARY ---
Discharge Summary
Discharge Data
Date of Admission: 02/12/24
Date of Discharge: 02/20/24
-
Pending Results: No
Hospital Course
78yo F with PMHx of HTN, COPD, complicated diverticulitis s/p hemicolectomy with colostomy placement in 2019, anxiety, Hx of suicidal ideations, Hx of depression, exacerbated after recently loosing her housing, Resident of the [facility] (lives
there with her son as per patient) came with vague complains: on admission c/o recurrent bleeding on her colostomy, then chest pain and next day just about 'going through the tough times' and poor memory. Patient previously was seen by neurology and
has a long Hx of dementia
As per CM - will need lever 2 state assessment since she cannot function with more extensive medical supervision, eventually accepted to [facility]. Medically stable for d/c.
I have spent at least 36min preparing d/c
Patient was managed for:
#Colostomy bleeding with mild chronic anemia
#Chest pain
#MDD
#Dementia, unspecified
#Essential HTN
#COPD not in exacerbation
#Hypokalemia
#Mild hypoglycemia
#Social problems
#BUDDY
Discharge Plan
-
Patient Disposition: Psych Facility
Discharge Diagnosis/Procedures: intentional overdose
Diet: Regular
Activity: As tolerated
Activity Restrictions/Additional Instructions:
Routine colostomy care. Change colsotomy appliance 2 times a week and as needed for leakage (Ruth Ann wafer # [id number], [place] pouch # [id number], use Martita seal if leakage occures).
Barrier ointment to mary ellen/sacral skin bid.
Make appointment with leaf tier for toenail cutting.
Referrals:
UNKNOWN - PT DOES,NOT KNOW [Family Provider] -
Prescriptions:
New
nicotine 14 mg/24 hr Patch 24 Hour
14 mg transdermal DAILY Qty: 30 0RF
alprazolam 0.25 mg Tablet
0.25 mg PO Q8HPRN PRN (Reason: anxiety) Qty: 6 0RF
nitroglycerin 0.4 mg Tablet, Sublingual
0.4 mg sublingual [id number] PRN (Reason: CP) Qty: 30 0RF
hydrochlorothiazide 25 mg Tablet
25 mg PO DAILY Qty: 30 0RF
risperidone 1 mg Tablet
1 mg PO HS Qty: 30 0RF
Refresh Classic (PF) 1.4-0.6 % Dropperette
1 drops BOTH EYES QIDPRN PRN (Reason: dry eyes) Qty: 5 0RF
escitalopram oxalate 5 mg Tablet
5 mg PO DAILY Qty: 30 0RF
Discontinued
hydrochlorothiazide 25 mg Tablet
25 mg PO DAILY
Artificial Tears (PF) Dropperette
1 drp BOTH EYES QIDPRN PRN (Reason: dry eyes )
nicotine 14 mg/24 hr Patch 24 Hour
14 mg transdermal DAILY 28 Days Qty: 28 0RF
alprazolam 0.25 mg Tablet
0.25 mg PO Q8HPRN PRN (Reason: anxiety) 30 Days Qty: 15 0RF
risperidone 0.5 mg Tablet
0.5 mg PO HS 30 Days Qty: 30 0RF
Discharge Orders:
Discharge Patient (As Directed); Ordered 02/20/24
Ordered By: Casa Meza
Discharge Date and Time
Print Language: GRENADIAN
[2024-02-20 15:59] VITALS: BP 137/78
--- NOTE | 2024-02-20 16:47 | PTCARENOTE ---
Addendum entered by Gina Waldrop RN 02/20/24 17:56:
report given to alex on patient to phone number listed below
Original Note:
this nurse called [phone] to give report on patient damion at 1800/[phone]. this nurse was asked to call back since no staff was available. will follow up with report phone call
[2024-02-20] MEDS: ROCEPHIN 1000 MG IV (17:14)
[2024-02-20] MEDS: STERILE WATER FOR INJECTION 10 ML IV (17:14)
== END 2024-02-20 17:45 | DRG 394 ==
LOC: 2 NORTH 09:37
PROVIDERS: Emergency Medicine; Family Medicine; Nurse Practitioner Gerontology; ADMITTING PHYSICIAN Hospitalist; ATTENDING PHYSICIAN Internal Medicine; CONSULT PHYSICIAN Surgery; EMERGENCY PHYSICIAN Emergency Medicine; OTHER PHYSICIAN Psychiatry & Neurology Psychiatry
DX: K94.01 Colostomy hemorrhage (principal); E46 Unspecified protein-calorie malnutrition; F03.B11 Unspecified dementia, moderate, with agitation; F03.B3 Unspecified dementia, moderate, with mood disturbance; F03.B4 Unspecified dementia, moderate, with anxiety; F33.0 Major depressive disorder, recurrent, mild; N17.9 Acute kidney failure, unspecified; J44.9 Chronic obstructive pulmonary disease, unspecified; D64.9 Anemia, unspecified; Z66 Do not resuscitate; I12.9 Hypertensive chronic kidney disease with stage 1 through stage 4 chronic kidney disease, or unspecified chronic kidney disease; N18.31 Chronic kidney disease, stage 3a; R62.7 Adult failure to thrive; I48.0 Paroxysmal atrial fibrillation; K21.9 Gastro-esophageal reflux disease without esophagitis; E78.00 Pure hypercholesterolemia, unspecified; F41.9 Anxiety disorder, unspecified; E16.2 Hypoglycemia, unspecified; E87.6 Hypokalemia; M54.30 Sciatica, unspecified side; K44.9 Diaphragmatic hernia without obstruction or gangrene; F17.200 Nicotine dependence, unspecified, uncomplicated; R07.89 Other chest pain; Z68.26 Body mass index [BMI] 26.0-26.9, adult; Z79.899 Other long term (current) drug therapy; Z87.19 Personal history of other diseases of the digestive system; Z85.41 Personal history of malignant neoplasm of cervix uteri; Z91.51 Personal history of suicidal behavior; Z85.3 Personal history of malignant neoplasm of breast; Z90.49 Acquired absence of other specified parts of digestive tract
CPT/HCPCS: 70450; 80048; 80053; 80061; 81003; 81015; 82550; 82962; 83735; 84100; 84443; 84484; 85025; 85027; 85610; 85730; 86618; 86780; 86850; 86900; 86901; 87070; 87086; 87147; 93005; 97116; 97162; 97166; 97530; 97535; 99285

== ENCOUNTER 2024-03-15 17:21 | Observation (INO) | payer OTHER, SELFPAY ==
[2024-03-15 12:00] VITALS: BP 116/85
[2024-03-15 12:04] VITALS: BMI 25.1
[2024-03-15 12:09] VITALS: BP 116/85
--- NOTE | 2024-03-15 12:19 | CM ---
CM left message for patient's [employer] case maker Enda. CM left message for director of analytics at [facility].
[2024-03-15 13:00] VITALS: BP 138/57
--- NOTE | 2024-03-15 13:31 | ED.GENMED ---
History of Present Illness
General
Chief Complaint: Social Service Referral
Source: patient
Exam Limitations: none
Time Seen by Provider: 03/15/24 12:26
Nursing documentation reviewed up to this point in time: agreed with
History of Present Illness
History of Present Illness:
Patient is an 78-year-old female dementia hypertension COPD , complicated diverticulitis status post hemicolectomy with colostomy in 2019, anxiety, history of suicide ideation in the past, depression who was sent to the ER for evaluation.
Apparently patient lives requiring home with her son with schizophrenia and has not been able to care for her colostomy. She presented to the ER with dried stool feces to the skin and no colostomy bag in place.
control manager is consulted prior my exam BS and evaluated for skin short any with past medical history of diverticulitis status post hemicolectomy colostomy in 2019, anxiety history of suicidal ideation depression pt.
Past History
Past History
ED Past Medical History: Arrthythmia (atrial fib), Cancer (Breast and Cervix), COPD, GERD, HTN, Hypercholesterolemia, Psychiatric (Anxiety) and Other (Diverticulitis, Sciatica, Hiatal hernia, )
ED Past Surgical History: Bowel resection (with Colostomy due to diverticulitis) and Gynecological (D&C, Lumpectomy left)
Social History
Tobacco: Smoker
Alcohol: Occasional
Drug: None
Personal:
Living: with family (Son)
Employment: Retired
Family History
Family History: Other (Noncontributory)
Phy Exam
General Physical Exam
General Presentation: no apparent distress
General age: appears stated age
General Skin: warm and dry
General Habitus: elderly
General Mental: alert, confused and other (Awake alert however confused to year and month)
General Hydration: dry mucous membranes
Cardiovascular Exam
Cardiovascular Exam: regular rate/rhythm, no murmur and normal peripheral pulses
Pulmonary Exam
Pulmonary Exam: lungs clear and no respiratory distress
Gastrointestinal Exam
Gastrointestinal Exam: soft and other (colotomy in place )
Neurological Exam
Neurological Exam: alert and oriented x3
Musculoskeletal Exam
Musculoskeletal Exam: full ROM
Skin Exam
Skin Exam: normal color and warm/dry
Psychiatric Exam
Psychiatric Exam: normal mood/affect
Course
Orders/Labs/Results
Orders:
Orders
03/15/24 Lunch
Low Residue
At Your Request: Non-Participating
03/15/24 12:04
Case Management Consult ONCE
Case Management Consult: Discharge Planning
03/15/24 14:16
IV Insert/Care/Rem.- Treatment PRN
03/15/24 14:45
Basic Metabolic Panel Urgent
Complete Blood Count/With Diff Urgent
Urinalysis Reflex To Culture Urgent
Date Specimen was Collected: 03/15/24
Time Specimen was Collected: 14:41
03/15/24 16:38
Admit/Transfer Patient As Directed
Co-Sign Provider:
Level of Care: Observation services
Assign to:: Medical/Surgical
Physician / Group: mahesh/medicine
Diagnosis: deconditioning
03/15/24 16:40
PRN Pain Medication Management As Directed
May give lesser potent ordered pain med per pt: Yes
preference::
Protocol:: Medication orders for pain may be administered in a
manner that supports deferring to patient preference
when the pt is:
- Requesting an ordered lesser potent pain medication.
Least to most potent pain medications are defined
as: acetaminophen < NSAID < tramadol < opioids
(morphine, oxycodone, hydromorphone).
- Requesting a lesser dose of the same medication IF
ORDERED.
- Requesting a less intrusive route of administration
if both routes are prescribed by the provider (PO <
IV).
03/15/24 16:45
Code Status As Directed
Resuscitation Status: Do not resuscitate
Reached after discussion with pt or family/Healthcare POA: Yes
DNR Bracelet Application ONCE
03/15/24 17:47
Alprazolam [Xanax] 0.25 mg PO DAILYPRN PRN
Artificial Tears (Pf) [Refresh Eye Drops (Pf)] 1 drops BOTH EYES QIDPRN PRN
Bisacodyl [Dulcolax] 10 mg RECTAL [id number] PRN
Docusate W/Senna [Senokot-S] 1 tablet PO BIDPRN PRN
Nitroglycerin Sublingual [Nitrostat (Sublingual)] 0.4 mg SL [id number] PRN
Polyethylene Glycol Powder [Miralax] 17 grams PO DAILYPRN PRN
03/15/24 17:47
Activity As Directed
Activity Level: As Tolerated
Vital Signs As Directed
Frequency: Per unit guidelines
DX Deep Vein Thrombosis Video Routine
03/15/24 22:00
Risperidone [Risperdal] 2 mg PO HS
03/16/24 00:00
Heparin 5,000 units SC Q8
03/16/24 06:00
Complete Blood Count/No Diff IN AM
Comprehensive Metabolic Panel IN AM
03/16/24 08:00
Hydrochlorothiazide [Oretic] 25 mg PO DAILY
Sertraline HCl [Zoloft] 50 mg PO DAILY
Abnormal Lab Results
03/15/24
14:45
RBC 4.04 L 10^6/uL
(4.20-5.40)
Hgb 11.9 L g/dL
(12.0-16.0)
Hct 36.2 L %
(37.0-47.0)
MCHC 32.9 L g/dL
(33.0-37.0)
RDW 16.9 H %
(11.5-14.5)
MPV 10.6 H fL
(7.4-10.4)
Lymphocytes % 17.3 L %
(20.5-51.1)
Carbon Dioxide 32 H mmol/L
(22-30)
BUN 22 H mg/dl
(7-17)
03/15/24 14:45
03/15/24 14:45
Vital Signs
Initial and Last Documented VS:
Initial Vital Signs
Pulse Resp BP Pulse Ox
50 16 116/85 97
03/15/24 12:00 03/15/24 12:00 03/15/24 12:00 03/15/24 12:00
Last Documented Vital Signs
Temp Pulse Resp BP Pulse Ox
97.6 F 63 18 153/58 95
03/15/24 17:51 03/15/24 17:51 03/15/24 17:51 03/15/24 17:51 03/15/24 17:51
MDM/Problems Addressed
Differential Diagnosis Includes:
Not limited to failure to thrive
MDM/Problems Addressed:
PT was at [facility] however d/c to home however not able to care for herself.
Sister and Adult protective services involved
Case management at bedside also spoke with Adult Protective Services and patient's sister patient will need placement however will not be able to be placed today will admit under observation until placement
Chronic conditions affecting care:
Diverticulitis colostomy
*Pulse Oximetry
Patient hypoxic: no
*Critical Care Note
Total Time (30-74mins, 75-104mins- exclusive of procedures): Not Applicable
ED Attending Note
-
Portions of this chart may have been created with voice recognition software.� Occasional wrong word or��sound alike� substitutions may have occurred due to the inherent limitations of voice recognition software.
Discharge Plan
Departure
Patient Disposition: Admit
Date of Disposition: 03/15/24
Time of Disposition: 16:18
Admit to: Med/Surg
Admit to doctor: hospitalist
Presentation/result/management discussed w/ accepting MD/DO: Hospitalist
Patient with high blood pressure during this ER visit?: No
Condition: Fair
Covid-19: Not Applicable
Discharge Problem:
Adult failure to thrive
Interventions
Interventions:
*Risk Screen - Suicide Last Done: 03/15/24 12:07
*General Assessment Last Done: 03/15/24 12:07
*Neglect/Abuse Screening Last Done: 03/15/24 12:07
ED- Fall Risk Assessment Last Done: 03/15/24 12:07
*ED COVID-19 Vaccine History Last Done: 03/15/24 12:07
*Nursing Disposition Last Done: 03/15/24 17:39
ED-Psychological Assessment Last Done: 03/15/24 12:10
Discharge Date and Time
Discharge Date/Time: 03/15/24 17:39
[2024-03-15 14:00] VITALS: BP 122/54
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
[2024-03-15 15:02] LABS: % Basophils 0.7 % (0-2); % Eosinophils 3.7 % (0-6); % Immature Granulocytes 0.3 % (0-0.5); % Lymphocytes 17.3 % (20.5-51.1); Absolute Basophils 0.1 10^3/uL (0-0.2); Absolute Eosinophils 0.3 10^3/uL (0-0.7); Absolute Lymphocytes 1.2 10^3/uL (1.2-3.4); Absolute Monocytes 0.6 10^3/uL (0.1-0.6); Absolute Neutrophils 4.6 10^3/uL (1.4-6.5); Hematocrit 36.2 % (37.0-47.0); Hemoglobin 11.9 g/dL (12.0-16.0); Mean Corp Hgb Conc. 32.9 g/dL (33.0-37.0); Mean Corpuscular Hgb 29.5 pg (27.0-31.0); Mean Corpuscular Volume 89.6 fL (81.0-99.0); Mean Platelet Volume 10.6 fL (7.4-10.4); Nucleated Red Blood Cells % 0 %; Platelet Count 303 10^3/uL (130-400); Red Blood Cell Count 4.04 10^6/uL (4.20-5.40); Red Cell Dist. Width 16.9 % (11.5-14.5); White Blood Cell Count 6.7 10^3/uL (4.8-10.8)
[2024-03-15 15:08] LABS: Urine Albumin Negative (Neg - Trace); Urine Bilirubin Negative (Negative); Urine Character Clear (Clear); Urine Color Yellow; Urine Glucose Negative (Negative); Urine Ketone Negative (Negative); Urine Leukocyte Negative (Negative); Urine Nitrite Negative (Negative); Urine Occult Blood Negative (Negative); Urine Urobilinogen Negative (Neg - 1+)
[2024-03-15 15:29] LABS: Blood Urea Nitrogen 22 mg/dl (7-17); Calcium 8.4 mg/dl (8.4-10.2); Carbon Dioxide 32 mmol/L (22-30); Chloride 100 mmol/L (98-107); Estimated Creatinine Clearance 41 ml/min; Glucose 89 mg/dl (70-99); Sodium 140 mmol/L (135-145); eGFR > 60.00
--- NOTE | 2024-03-15 16:50 | HPS.HSE ---
Family Physician
-
Family Physician: INTERVIEWE UNKNOWN - PT NOT
Chief Complaint
-
Inability to care for self
History of Present Illness
78yo F with PMHx of HTN, COPD, complicated diverticulitis s/p hemicolectomy with colostomy placement in 2019, anxiety, Hx of suicidal ideations,, Hx of depression, exacerbated after recently loosing her housing, Resident of the [facility] (lives
there with her son as per patient) now presents after found to be requiring assistance/not able to care for colostomy at home with son who has schizophrenia. Patient presented with dry stool to the skin and no colostomy in place. Patient remains
afebrile, heart rate 48, respirate 16, saturating 90% on room air, normotensive. Labs not significant for gross abnormalities. UA negative. Patient being admitted to observation after vocational case manager evaluation with adult protective services and
patient's sister. Patient needs placement although will not be able to be placed today.
Medical History
Past Medical History
Past Medical History: Reports Other (paroxysmal atrial fibrillation/flutter, breast cancer, cervical cancer, COPD, hypertension, GERD, hypercholesteremia, anxiety, sciatica, hiatal hernia, diverticulitis status post bowel resection with colostomy)
Past Surgical History: Reports Other (Bowel resection (with Colostomy due to diverticulitis) and Gynecological (D&C, Lumpectomy left))
Social History
Tobacco: Non-smoker
Alcohol: None
Drug: None
Family History
Family History: Not pertinent
Allergies / Home Medications
Allergies reflects when Allergies were last updated in [facility].
Home Medications with original date entered in [facility]
Allergy/Medication List:
Allergies
Allergy/AdvReac Type Severity Reaction Status Date / Time
lorazepam [From Ativan] Allergy pt with Verified 03/15/24 12:03
change in
mental
status,
confusion
Home Medications
escitalopram oxalate 5 mg tablet 5 mg PO DAILY #30 tabs 08/20/24
hydrochlorothiazide 25 mg tablet 25 mg PO DAILY #30 tabs 02/20/24
nicotine 14 mg/24 hr daily transdermal patch 14 mg transdermal DAILY #30 ea 02/20/24
nitroglycerin 0.4 mg sublingual tablet 0.4 mg sublingual [id number] PRN CP #30 tabs 02/20/24
polyvinyl alcohol-povidone (PF) 1.4 %-0.6 % eye drops in a dropperette (Refresh Classic (PF)) 1 drops BOTH EYES QIDPRN PRN dry eyes #5 ea 02/20/24
risperidone 1 mg tablet 1 mg PO HS #30 tabs 02/20/24
alprazolam 0.25 mg tablet 0.25 mg PO DAILYPRN PRN anxiety 03/15/24
Review of Systems
-
Unable to obtain full review of systems at this time due to: Acuity
A 12 point ROS was completed and negative except as noted: No
Physical Exam
Vital Signs
Vital Signs
Temp Pulse Resp BP Pulse Ox
98.1 F 48 16 122/54 92
03/15/24 12:09 03/15/24 14:00 03/15/24 14:00 03/15/24 14:00 03/15/24 15:47
Physical Exam
General: No Apparent Distress
HEENT: NormoCephalic
Respiratory: Clear
Cardiac: S1/S2 and Regular Rhythm
GI: Soft, Non Tender and Other (no colostomy bag and site of stoma)
Musculoskeletal: No Clubbing
Neuro: Awake and Alert
Hematologic/Lymphatic: No Lymphadenopathy
Laboratory Results
-
03/15/24 14:45
03/15/24 14:45
Laboratory Results
Total Bilirubin Cancelled 03/15/24 14:45
AST Cancelled 03/15/24 14:45
ALT Cancelled 03/15/24 14:45
Alkaline Phosphatase Cancelled 03/15/24 14:45
Data Reviewed
-
Lab Data: Labs Reviewed by me
Impression/Plan
-
IMPRESSION:
78yo F with PMHx of HTN, COPD, complicated diverticulitis s/p hemicolectomy with colostomy placement in 2019, anxiety, Hx of suicidal ideations,, Hx of depression, exacerbated after recently loosing her housing, Resident of the [facility] (lives
there with her son as per patient) now presents after found to be requiring assistance/not able to care for colostomy at home with son who has schizophrenia.
PLAN:
Inability to care for self by herself or family
-CM, Adult Protective Services Involved
-placement
#Colostomy bleeding with mild chronic anemia
outpatient anemia w/u
Abd benign
Place colostomy bag
Colorectal Sx eval on last admission: sulfasalazine and granuloma cauterization
#MDD
#Dementia, unspecified
No suicidal thoughts
Lexapro
#Essential HTN
#COPD not in exacerbation
cont home meds
#Hypokalemia
2/2 HCTZ
#Social problems
CM for placement
DVT ppx hep
DNR/DNI
[2024-03-15 17:51] VITALS: BP 153/58; BMI 26.0
[2024-03-15] MEDS: RISPERDAL 2 MG PO (21:07)
[2024-03-15 23:59] VITALS: BP 99/48
[2024-03-16] MEDS: HEPARIN 5000 UNITS SC ×4 (00:23→23:00)
[2024-03-16 06:51] LABS: Hematocrit 31.5 % (37.0-47.0); Hemoglobin 10.5 g/dL (12.0-16.0); Mean Corp Hgb Conc. 33.3 g/dL (33.0-37.0); Mean Corpuscular Hgb 29.7 pg (27.0-31.0); Mean Corpuscular Volume 89.2 fL (81.0-99.0); Mean Platelet Volume 11.2 fL (7.4-10.4); Platelet Count 260 10^3/uL (130-400); Red Blood Cell Count 3.53 10^6/uL (4.20-5.40); Red Cell Dist. Width 16.9 % (11.5-14.5); White Blood Cell Count 5.6 10^3/uL (4.8-10.8)
[2024-03-16 07:21] LABS: ALT (SGPT) 20 U/L (0-35); AST (SGOT) 36 U/L (14-36); Albumin 2.6 g/dl (3.5-5.0); Alkaline Phosphatase 107 U/L (38-126); Blood Urea Nitrogen 24 mg/dl (7-17); Calcium 8.1 mg/dl (8.4-10.2); Carbon Dioxide 28 mmol/L (22-30); Chloride 106 mmol/L (98-107); Estimated Creatinine Clearance 41 ml/min; Glucose 72 mg/dl (70-99); Potassium 3.5 mmol/L (3.5-5.1); Sodium 142 mmol/L (135-145); Total Bilirubin 0.3 mg/dl (0.2-1.3); Total Protein 5.6 g/dl (6.3-8.2); eGFR > 60.00
[2024-03-16 07:46] VITALS: BP 117/54
[2024-03-16] MEDS: ORETIC 25 MG PO (08:53)
[2024-03-16] MEDS: ZOLOFT 50 MG PO (08:53)
--- NOTE | 2024-03-16 12:52 | W.PN.HOSP.TC ---
Today's Communication/Plan
-
pending placement
f/u cbc
Assessment / Plan
Assessment / Plan
Physical Exam
General: No Apparent Distress
HEENT: NormoCephalic
Respiratory: Clear
Cardiac: S1/S2 and Regular Rhythm
GI: Soft, Non Tender and Other ( colostomy bag in place)
Musculoskeletal: No Clubbing
Neuro: Awake and Alert
Hematologic/Lymphatic: No Lymphadenopathy
78yo F with PMHx of HTN, COPD, complicated diverticulitis s/p hemicolectomy with colostomy placement in 2019, anxiety, Hx of suicidal ideations,, Hx of depression, exacerbated after recently loosing her housing, Resident of the [facility] (lives
there with her son as per patient) now presents after found to be requiring assistance/not able to care for colostomy at home with son who has schizophrenia.
PLAN:
Inability to care for self by herself or family
-CM, Adult Protective Services Involved
-placement
#Colostomy bleeding with mild chronic anemia
outpatient anemia w/u
Abd benign
colostomy bag in place
Colorectal Sx eval on last admission: sulfasalazine and granuloma cauterization
#MDD
#Dementia, unspecified
No suicidal thoughts
Lexapro
#Essential HTN
#COPD not in exacerbation
cont home meds
#Hypokalemia
2/2 HCTZ
#Social problems
CM for placement
DVT ppx hep
DNR/DNI
Anticipated Discharge: > 48 hours
Subjective/Interval History
-
Date of Service: March 16, 2024
No acute events
Objective Data
-
Labs:
Laboratory Results
03/16/24
05:43
WBC 5.6
Hgb 10.5 L
Hct 31.5 L
Plt Count 260
Sodium 142
Potassium 3.5
Chloride 106
Carbon Dioxide 28
BUN 24 H
Creatinine 0.9
Glucose 72
Calcium 8.1 L
Total Bilirubin 0.3
AST 36
ALT 20
Alkaline Phosphatase 107
Vital Signs:
Vital Signs
Temp Pulse Resp BP Pulse Ox
97.9 F 62 16 117/54 95
03/16/24 07:46 03/16/24 08:53 03/16/24 07:46 03/16/24 08:53 03/16/24 07:46
I&O
03/15/24 03/16/24 03/17/24
06:59 06:59 06:59
Intake Total 360 / 360
Balance 360 / 360
Review of Systems
-
History Source: Patient
All other systems: Not reviewed unless documented
Physical Exam
-
General: Well Developed
HEENT: Normocephalic and Atraumatic
Respiratory: Clear to Auscultation
Cardiac: Regular Rhythm
GI: Soft, Nontender, Nondistended and Ostomy
Neuro: Awake, Alert, Oriented and AO x 3
Psych: Calm
Data Reviewed
-
Labs: Labs Reviewed by me
[2024-03-16 16:20] VITALS: BP 136/74
[2024-03-16] MEDS: RISPERDAL 2 MG PO (22:56)
[2024-03-16 23:36] VITALS: BP 145/59
[2024-03-17 07:02] LABS: Hematocrit 30.4 % (37.0-47.0); Hemoglobin 10.1 g/dL (12.0-16.0); Mean Corp Hgb Conc. 33.2 g/dL (33.0-37.0); Mean Corpuscular Hgb 29.5 pg (27.0-31.0); Mean Corpuscular Volume 88.9 fL (81.0-99.0); Mean Platelet Volume 11.1 fL (7.4-10.4); Platelet Count 237 10^3/uL (130-400); Red Blood Cell Count 3.42 10^6/uL (4.20-5.40); White Blood Cell Count 6.1 10^3/uL (4.8-10.8)
[2024-03-17 07:40] VITALS: BP 106/64
[2024-03-17] MEDS: HEPARIN 5000 UNITS SC ×2 (07:48→15:32)
[2024-03-17] MEDS: ORETIC 25 MG PO (07:49)
[2024-03-17] MEDS: ZOLOFT 50 MG PO (07:49)
--- NOTE | 2024-03-17 09:34 | CM ---
Addendum entered by Grace Wilks 03/17/24 10:01:
scale manager reached out to patient's sister, Sue requesting her help with completing financial forms, patient's sister has agreed to complete financial paperwork if rn case mgr can place patient in [place], plan will be to see if
[facility], [facility] or [facility] can accept patient.
Original Note:
scale manager reviewed patient's chart and patient is known to this rn case mgr from a previous admission where patient was placed in a facility following a suicide attempt. After [facility], patient was placed at [facility]. Per
notes patient's niece removed patient from residential to take her back to her apartment at [facility]. [facility] management have been trying to have patient removed from their facility since last admission.
At this time, plan with be to proceed with skilled placement, rn case mgr attempted to contact patient's insurance [employer] [phone] today to request in network facilities, however the offices are closed. scale manager spoke with Kentrell in
admissions at [facility] and he stated that they do not have a contract with [employer] but the would be agreeable to discussing skilled placement if family will agree to complete financial information, per Eli they will be out to
evaluate patient on 03/18/24 and they also do not have a contract with [facility], they are requesting a one time contact for skilled placement, they also want financial forms completed.
Referrals sent to [facility], [facility], [facility], [facility], [facility], [facility], [facility], [facility], [facility], [facility], and [facility].
Plan; Skilled placement, challenges will be to find an in network facility that will accept patient's insurance and encouraging family to complete financial application.
--- NOTE | 2024-03-17 11:52 | W.PN.HOSP.TC ---
Today's Communication/Plan
-
add on iron labs
trend cbc
dispo planning
Assessment / Plan
Assessment / Plan
Physical Exam
General: No Apparent Distress
HEENT: NormoCephalic
Respiratory: Clear
Cardiac: S1/S2 and Regular Rhythm
GI: Soft, Non Tender and Other ( colostomy bag in place)
Musculoskeletal: No Clubbing
Neuro: Awake and Alert
Hematologic/Lymphatic: No Lymphadenopathy
78yo F with PMHx of HTN, COPD, complicated diverticulitis s/p hemicolectomy with colostomy placement in 2019, anxiety, Hx of suicidal ideations,, Hx of depression, exacerbated after recently loosing her housing, Resident of the [facility] (lives
there with her son as per patient) now presents after found to be requiring assistance/not able to care for colostomy at home with son who has schizophrenia.
PLAN:
Inability to care for self by herself or family
-CM, Adult Protective Services Involved
-placement
#Colostomy bleeding with mild chronic anemia
outpatient anemia w/u
Abd benign
colostomy bag in place
Colorectal Sx eval on last admission: sulfasalazine and granuloma cauterization
Anemia
� Appears to be chronic in nature, no evidence of bleeding
� Continue outpatient follow-up
� Add iron labs
� Trend hemoglobin
#MDD
#Dementia, unspecified
No suicidal thoughts
Lexapro
#Essential HTN
#COPD not in exacerbation
cont home meds
#Hypokalemia
2/2 HCTZ
#Social problems
CM for placement
DVT ppx hep
DNR/DNI
Anticipated Discharge: 24 - 48 hours
Subjective/Interval History
-
Date of Service: March 17, 2024
No acute events overnight
Objective Data
-
Labs:
Laboratory Results
03/17/24
05:30
WBC 6.1
Hgb 10.1 L
Hct 30.4 L
Plt Count 237
Vital Signs:
Vital Signs
Temp Pulse Resp BP Pulse Ox
98.1 F 75 16 106/64 96
03/17/24 07:40 03/17/24 07:40 03/17/24 07:40 03/17/24 07:40 03/17/24 07:40
I&O
03/16/24 03/17/24 03/18/24
06:59 06:59 06:59
Intake Total 360 / 360 420 / 420
Balance 360 / 360 420 / 420
Review of Systems
-
History Source: Patient
All other systems: Not reviewed unless documented
Data Reviewed
-
Labs: Labs Reviewed by me
[2024-03-17 12:28] LABS: Iron 58 ug/dl (37-170)
[2024-03-17 13:15] LABS: Ferritin 35.4 ng/ml (11.1-264.0)
[2024-03-17 15:30] VITALS: BP 142/60
[2024-03-17] MEDS: RISPERDAL 2 MG PO (21:37)
[2024-03-17 23:30] VITALS: BP 117/58
[2024-03-18] MEDS: HEPARIN 5000 UNITS SC ×4 (00:31→23:39)
[2024-03-18 07:00] VITALS: BP 113/62
[2024-03-18 07:39] LABS: Hematocrit 31.3 % (37.0-47.0); Hemoglobin 10.3 g/dL (12.0-16.0); Mean Corp Hgb Conc. 32.9 g/dL (33.0-37.0); Mean Corpuscular Hgb 28.7 pg (27.0-31.0); Mean Corpuscular Volume 87.2 fL (81.0-99.0); Mean Platelet Volume 10.9 fL (7.4-10.4); Platelet Count 266 10^3/uL (130-400); Red Blood Cell Count 3.59 10^6/uL (4.20-5.40); Red Cell Dist. Width 17.2 % (11.5-14.5); White Blood Cell Count 5.7 10^3/uL (4.8-10.8)
[2024-03-18] MEDS: ORETIC 25 MG PO (07:40)
[2024-03-18] MEDS: ZOLOFT 50 MG PO (07:40)
--- NOTE | 2024-03-18 08:02 | W.PN.HOSP.TC ---
Today's Communication/Plan
-
Medically stable for discharge pending SNF placement
Assessment / Plan
Assessment / Plan
Physical Exam
General: No Apparent Distress
HEENT: NormoCephalic
Respiratory: Clear
Cardiac: S1/S2 and Regular Rhythm
GI: Soft, Non Tender and Other (colostomy bag in place)
Musculoskeletal: No Clubbing
Neuro: Awake and Alert
Hematologic/Lymphatic: No Lymphadenopathy
78yo F with PMHx of HTN, COPD, complicated diverticulitis s/p hemicolectomy with colostomy placement in 2019, anxiety, Hx of suicidal ideations,, Hx of depression, exacerbated after recently loosing her housing, Resident of the [facility] (lives
there with her son as per patient) now presents after found to be requiring assistance/not able to care for colostomy at home with son who has schizophrenia.
PLAN:
Inability to care for self by herself or family
-CM, Adult Protective Services Involved
-placement
#Colostomy bleeding with mild chronic anemia
outpatient anemia w/u
Abd benign
colostomy bag in place
Colorectal Sx eval on last admission: sulfasalazine and granuloma cauterization
Anemia
� Appears to be chronic in nature, no evidence of bleeding
� Continue outpatient follow-up
� iron wnl
� H&H stable
#MDD
#Dementia, unspecified
No suicidal thoughts
Lexapro
#Essential HTN
#COPD not in exacerbation
cont home meds
#Hypokalemia
2/2 HCTZ
#Social problems
CM for placement
DVT ppx hep
DNR/DNI
Medically stable for discharge pending SNF placement
I spent a total of 40 minutes with the patient or on the floor. More than 50% of this time involved counseling and coordination of care.
Anticipated Discharge: 24 - 48 hours
Subjective/Interval History
-
Date of Service: March 18, 2024
No acute distress sitting up comfortably in chair. Denies new acute issues. AOx3 patient acknowledges that she has memory issues and needs SNF.
Objective Data
-
Labs:
Laboratory Results
03/18/24
06:54
WBC 5.7
Hgb 10.3 L
Hct 31.3 L
Plt Count 266
Vital Signs:
Vital Signs
Temp Pulse Resp BP Pulse Ox
98.0 F 58 18 117/58 94
03/17/24 23:30 03/17/24 23:30 03/17/24 23:30 03/17/24 23:30 03/17/24 23:30
I&O
03/17/24 03/18/24 03/19/24
06:59 06:59 06:59
Intake Total 420 / 420 520 / 520
Output Total 50 / 50
Balance 420 / 420 470 / 470
--- NOTE | 2024-03-18 10:19 | CM ---
Addendum entered by Grace Wilks 03/18/24 17:10:
Still waiting for a determination from [facility] or [facility] both are in network with insurance, [facility] will accept patient however they are not in network with insurance. Message left for [facility] requesting OBRA form
for prison placement.
Original Note:
manager food reached out to Grace in admissions at [facility] and [facility] and asked her to review referral and asked her to come to hospital to meet with patient. Admissions to review chart. They insist that if they accept patient that
financial information will need to be completed prior to admission.
manager food reached out to patient's insurance and spoke with Hiren and received a list of in network facility, both [facility] and [facility] are in network with insurance.
[facility] also to review and meet with patient today, however they are out of network with patient's insurance.
Plan; Skilled placement.
--- NOTE | 2024-03-18 11:33 | WOUNDNOTE ---
[facility] RN note: Patient admitted with deconditioning. See H+P. For SNF transfer d/t patient cannot take care of herself. History of diverticulitis with colostomy 2019. Stoma pink 1 1/4 x 1 1/2 inches slightly budded. Peristomal skin slightly red. Skin
irritated just distal to wafer border. [id number] Optifoam gentle lite dressing applied to distal L abdominal skin irritation. Colostomy appliance changed using Ruth Ann wafer # [id number], Martita seal and Ruth Ann pouch # [id number]. RN Wade in during visit
who stated patient's sacral skin is intact. Skin on heels intact. Patient in recliner chair. She is mobile. Good appetite. Extra colostomy change supply left in room. Nursing can assist with routine pouch changes. Will sign off. Call with questions.
[2024-03-18 14:19] VITALS: BP 124/66; PULSE 60; O2SAT 97
[2024-03-18 15:35] VITALS: BP 106/63
[2024-03-18 23:09] VITALS: BP 137/55
[2024-03-18] MEDS: RISPERDAL 2 MG PO (23:37)
--- NOTE | 2024-03-19 07:31 | W.PN.HOSP.TC ---
Today's Communication/Plan
-
medically stable pending snf placement
Assessment / Plan
Assessment / Plan
Physical Exam
General: No Apparent Distress
HEENT: NormoCephalic
Respiratory: Clear
Cardiac: S1/S2 and Regular Rhythm
GI: Soft, Non Tender and Other (colostomy bag in place)
Musculoskeletal: No Clubbing
Neuro: Awake and Alert
Hematologic/Lymphatic: No Lymphadenopathy
78yo F with PMHx of HTN, COPD, complicated diverticulitis s/p hemicolectomy with colostomy placement in 2020, anxiety, Hx of suicidal ideations,, Hx of depression, exacerbated after recently loosing her housing, Resident of the [facility] (lives
there with her son as per patient) now presents after found to be requiring assistance/not able to care for colostomy at home with son who has schizophrenia.
PLAN:
Inability to care for self by herself or family
-CM, Adult Protective Services Involved
-placement
#Colostomy bleeding with mild chronic anemia
outpatient anemia w/u
Abd benign
colostomy bag in place
Colorectal Sx eval on last admission: sulfasalazine and granuloma cauterization
Anemia
� Appears to be chronic in nature, no evidence of bleeding
� Continue outpatient follow-up
� iron wnl
� H&H stable
#MDD
#Dementia, unspecified
No suicidal thoughts
Lexapro
#Essential HTN
#COPD not in exacerbation
cont home meds
#Hypokalemia
2/2 HCTZ
#Social problems
CM for placement
DVT ppx hep
DNR/DNI
Medically stable for discharge pending SNF placement
I spent a total of 35 minutes with the patient or on the floor. More than 50% of this time involved counseling and coordination of care.
Anticipated Discharge: Within 24 hours
Subjective/Interval History
-
Date of Service: March 19, 2024
No new acute issues. Overall reports feeling well
Objective Data
-
Vital Signs:
Vital Signs
Temp Pulse Resp BP Pulse Ox
98.4 F 64 18 137/55 98
03/18/24 23:09 03/18/24 23:09 03/18/24 23:09 03/18/24 23:09 03/18/24 23:09
I&O
03/18/24 03/19/24 03/20/24
06:59 06:59 06:59
Intake Total 520 / 520 7220 / 7220
Output Total 50 / 50
Balance 470 / 470 7220 / 7220
[2024-03-19 07:53] VITALS: BP 117/51
[2024-03-19] MEDS: ZOLOFT 50 MG PO (08:27)
[2024-03-19] MEDS: ORETIC 25 MG PO (08:28)
[2024-03-19] MEDS: HEPARIN 5000 UNITS SC ×3 (08:28→23:54)
--- NOTE | 2024-03-19 14:37 | CM ---
Addendum entered by Anette Armstrong 03/19/24 16:11:
Also left VM for [facility] SW asking for copy of OBRA letter
Addendum entered by Anettececil Armstrong 03/19/24 15:40:
Call from Edna- noted CM will need to call [facility] OBRA Line to confirm pt doesn't require new level II
VM left for Carmen ([phone])
VM also left for [facility]/Marcela ([phone])
Inquired if level II/OBRA letter can be sent to CM as historically, level II are valid for one year
Awaiting response from [facility] and [facility]
Original Note:
VM left for [facility] CM Edna Kenny [phone] requesting copy of OBRA letter
Pt received level II last month during prior admission
[facility] and [facility] are considering for admission
Awaiting copy of OBRA letter
Discharge Disposition- SNF
[2024-03-19 15:25] VITALS: BP 126/69
[2024-03-19] MEDS: RISPERDAL 2 MG PO (21:41)
[2024-03-19 23:10] VITALS: BP 123/60
--- NOTE | 2024-03-20 03:17 | DOWNTIME ---
There was a [employer] Client [employer]D Engineer Downtime on 03/20/2024 from 0100 to 03/20/2024 at 0300. Downtime documentation of patient's care, including medication administrations, has been reconciled in the electronic record per guidelines. Refer to the
patient's paper chart under the miscellaneous tab to see printed paper medication records and downtime forms.
[2024-03-20 07:18] VITALS: BP 113/51
[2024-03-20] MEDS: ORETIC 25 MG PO (07:54)
[2024-03-20] MEDS: HEPARIN 5000 UNITS SC ×3 (07:54→23:12)
[2024-03-20] MEDS: ZOLOFT 50 MG PO (07:54)
--- NOTE | 2024-03-20 08:08 | W.PN.HOSP.TC ---
Today's Communication/Plan
-
Medically stable pending SNF placement
Assessment / Plan
Assessment / Plan
Physical Exam
General: No Apparent Distress
HEENT: NormoCephalic
Respiratory: Clear
Cardiac: S1/S2 and Regular Rhythm
GI: Soft, Non Tender and Other (colostomy bag in place)
Musculoskeletal: No Clubbing
Neuro: Awake and Alert
Hematologic/Lymphatic: No Lymphadenopathy
78yo F with PMHx of HTN, COPD, complicated diverticulitis s/p hemicolectomy with colostomy placement in 2020, anxiety, Hx of suicidal ideations,, Hx of depression, exacerbated after recently loosing her housing, Resident of the [facility] (lives
there with her son as per patient) now presents after found to be requiring assistance/not able to care for colostomy at home with son who has schizophrenia.
PLAN:
Inability to care for self by herself or family
-CM, Adult Protective Services Involved
-placement
#Colostomy bleeding with mild chronic anemia
outpatient anemia w/u
Abd benign
colostomy bag in place
Colorectal Sx eval on last admission: sulfasalazine and granuloma cauterization
Anemia
� Appears to be chronic in nature, no evidence of bleeding
� Continue outpatient follow-up
� iron wnl
� H&H stable
#MDD
#Dementia, unspecified
No suicidal thoughts
Lexapro
#Essential HTN
#COPD not in exacerbation
cont home meds
#Hypokalemia
2/2 HCTZ
#Social problems
CM for placement
DVT ppx hep
DNR/DNI
Medically stable for discharge pending SNF placement
I spent a total of 35 minutes with the patient or on the floor. More than 50% of this time involved counseling and coordination of care.
Anticipated Discharge: Within 24 hours
Subjective/Interval History
-
Date of Service: March 20, 2024
No acute distress. Overall reports feeling well. Participating in PT/OT
Objective Data
-
Vital Signs:
Vital Signs
Temp Pulse Resp BP Pulse Ox
98.2 F 63 16 113/51 97
03/20/24 07:18 03/20/24 07:18 03/20/24 07:18 03/20/24 07:18 03/20/24 07:18
I&O
03/19/24 03/20/24 03/21/24
06:59 06:59 06:59
Intake Total 7220 / 7220 1200 / 1200
Balance 7220 / 7220 1200 / 1200
--- NOTE | 2024-03-20 09:08 | CM ---
Addendum entered by Grace Wilks 03/20/24 15:56:
manager payment spoke with [facility] and faxed updated clinical and [facility] skilled may accept patient tomorrow, OBRA will need to be faxed.
Plan; Skilled at [facility], will need Auth.
Original Note:
manager payment reviewed patient's chart per progress notes and according to physical therapy skilled placement is still recommending, patient also with colostomy and needs assistance with managing colostomy. manager payment reached out to [facility] and they will not accept patient, waiting on a decision from [facility], both of these facilities are in network, [facility] will accept patient however they do not have a contract with patient's insurance. OBRA letter received from
[facility].
Plan; Skilled placement.
[2024-03-20 09:35] VITALS: BP 130/60
[2024-03-20 15:07] VITALS: BP 107/59
[2024-03-20] MEDS: RISPERDAL 2 MG PO (22:47)
[2024-03-20 23:27] VITALS: BP 139/72
--- NOTE | 2024-03-21 07:32 | W.PN.HOSP.TC ---
Today's Communication/Plan
-
Stable for discharge pending SNF placement
Assessment / Plan
Assessment / Plan
Physical Exam
General: No Apparent Distress
HEENT: NormoCephalic
Respiratory: Clear
Cardiac: S1/S2 and Regular Rhythm
GI: Soft, Non Tender and Other (colostomy bag in place)
Musculoskeletal: No Clubbing
Neuro: Awake and Alert
Hematologic/Lymphatic: No Lymphadenopathy
78yo F with PMHx of HTN, COPD, complicated diverticulitis s/p hemicolectomy with colostomy placement in 2019, anxiety, Hx of suicidal ideations,, Hx of depression, exacerbated after recently loosing her housing, Resident of the [facility] (lives
there with her son as per patient) now presents after found to be requiring assistance/not able to care for colostomy at home with son who has schizophrenia.
PLAN:
Inability to care for self by herself or family
-CM, Adult Protective Services Involved
-placement
#Colostomy bleeding with mild chronic anemia
outpatient anemia w/u
Abd benign
colostomy bag in place
Colorectal Sx eval on last admission: sulfasalazine and granuloma cauterization
Anemia
� Appears to be chronic in nature, no evidence of bleeding
� Continue outpatient follow-up
� iron wnl
� H&H stable
#MDD
#Dementia, unspecified
No suicidal thoughts
Lexapro
#Essential HTN
#COPD not in exacerbation
cont home meds
#Hypokalemia
2/2 HCTZ
#Social problems
CM for placement
DVT ppx hep
DNR/DNI
Medically stable for discharge pending SNF placement
I spent a total of 35 minutes with the patient or on the floor. More than 50% of this time involved counseling and coordination of care.
Anticipated Discharge: Within 24 hours
Subjective/Interval History
-
Date of Service: March 21, 2024
No new acute issues. Comfortable
Objective Data
-
Vital Signs:
Vital Signs
Temp Pulse Resp BP Pulse Ox
97.7 F 61 18 139/72 95
03/20/24 23:27 03/20/24 23:27 03/20/24 23:27 03/20/24 23:27 03/20/24 23:27
I&O
03/20/24 03/21/24 03/22/24
06:59 06:59 06:59
Intake Total 1200 / 1200
Balance 1200 / 1200
[2024-03-21 07:36] VITALS: BP 119/50
[2024-03-21] MEDS: ZOLOFT 50 MG PO (08:47)
[2024-03-21] MEDS: ORETIC 25 MG PO (08:47)
[2024-03-21] MEDS: HEPARIN 5000 UNITS SC ×3 (08:48→23:19)
--- NOTE | 2024-03-21 13:26 | CM ---
manager gift spoke with admissions at [facility] and they can accept patient, housing case manager reached out to patient's insurance [facility] and spoke with Jesus, pending ref # [id number] housing case manager faxed all clinicals to .
Plan; Await Auth for skilled placement at [facility], patient's family were in visiting today.
[facility]
Report [phone]
[2024-03-21 15:36] VITALS: BP 115/67
[2024-03-21] MEDS: RISPERDAL 2 MG PO (21:10)
[2024-03-21 23:56] VITALS: BP 117/58
[2024-03-22 07:00] VITALS: BP 127/53
--- NOTE | 2024-03-22 07:33 | W.PN.HOSP.TC ---
Today's Communication/Plan
-
discharge
Assessment / Plan
Assessment / Plan
Physical Exam
General: No Apparent Distress
HEENT: NormoCephalic
Respiratory: Clear
Cardiac: S1/S2 and Regular Rhythm
GI: Soft, Non Tender and Other (colostomy bag in place)
Musculoskeletal: No Clubbing
Neuro: Awake and Alert
Hematologic/Lymphatic: No Lymphadenopathy
78yo F with PMHx of HTN, COPD, complicated diverticulitis s/p hemicolectomy with colostomy placement in 2020, anxiety, Hx of suicidal ideations,, Hx of depression, exacerbated after recently loosing her housing, Resident of the [facility] (lives
there with her son as per patient) now presents after found to be requiring assistance/not able to care for colostomy at home with son who has schizophrenia.
PLAN:
Inability to care for self by herself or family
-CM, Adult Protective Services Involved
-placement
#Colostomy bleeding with mild chronic anemia
outpatient anemia w/u
Abd benign
colostomy bag in place
Colorectal Sx eval on last admission: sulfasalazine and granuloma cauterization
Anemia
� Appears to be chronic in nature, no evidence of bleeding
� Continue outpatient follow-up
� iron wnl
� H&H stable
#MDD
#Dementia, unspecified
No suicidal thoughts
Lexapro
#Essential HTN
#COPD not in exacerbation
cont home meds
#Hypokalemia
2/2 HCTZ
#Social problems
CM for placement
DVT ppx hep
DNR/DNI
Medically stable for discharge SNF rehab with outpatient follow up recommendations.
Total Time Preparing Discharge __40 minutes including examination of the patient, summary of the hospital stay, instructions for continuing care to all relevant caregivers; and preparation of discharge records, prescriptions, and referral
forms if necessary.
Anticipated Discharge: Today
Subjective/Interval History
-
Date of Service: March 22, 2024
No acute distress. Appears well. Looking forward to discharge to SNF rehab.
Objective Data
-
Vital Signs:
Vital Signs
Temp Pulse Resp BP Pulse Ox
97.6 F 65 16 117/58 95
03/21/24 23:56 03/21/24 23:56 03/21/24 23:56 03/21/24 23:56 03/21/24 23:56
I&O
03/21/24 03/22/24 03/23/24
06:59 06:59 06:59
Intake Total 900 / 900
Balance 900 / 900
[2024-03-22] MEDS: ORETIC 25 MG PO (08:33)
[2024-03-22] MEDS: HEPARIN 5000 UNITS SC (08:33)
[2024-03-22] MEDS: ZOLOFT 50 MG PO (08:33)
--- NOTE | 2024-03-22 10:47 | CM ---
spd manager received Auth from insurance for skilled placement, and bed is available today at [facility], per admissions at [facility] although they received the OBRA from the [facility] they [facility]
level of care faxed to them, multiple calls made and finally all paperwork on patient has been faxed to [facility] and patient has been set up for a 12:00 pickle cutter by ambulance. IMM completed and placed on chart, patient's sister Sue
notified.
Plan; Skilled placement at [facility] today
[facility]
Report [phone]
[2024-03-22 11:00] VITALS: BP 122/51
--- NOTE | 2024-03-22 11:31 | W.DCSUMMARY ---
Discharge Summary
Discharge Data
Date of Admission: 03/15/24
Date of Discharge: 03/22/24
-
Pending Results: No
Discharge Plan
-
Patient Disposition: Prison/SNF
Discharge Diagnosis/Procedures: Colostomy
Mild Chronic Anemia
Major Depressive Disorder
Dementia, unspecified
Hypertension
COPD
Condition: Fair
Diet: Low Residue
Additional Diets: Ok to advance as tolerated
Activity: With assistance, As tolerated and With Walker
Driving Restrictions: No driving
Bathing Restrictions: None
Other Services: PT, OT and ST
Activity Restrictions/Additional Instructions:
Colostomy supply: Ruth Ann wafer # [id number], Martita seal, Cascade pouch #[id number], change 2 times a week and as needed for leakage.
Small silicone border foam applied to distal ostomy wafer abrasion, change 2 times a week with each wafer change until healed.
Elevate heels off bed with pillow/s.
Make appointment with manager mental health for toenail care.
Follow up with primary care provider in 1 week of discharge.
Referrals:
UNKNOWN - PT NOT,INTERVIEWE [Family Provider] -
Prescriptions:
Continued
nitroglycerin 0.4 mg Tablet, Sublingual
0.4 mg sublingual [id number] PRN (Reason: CP) Qty: 30 0RF
hydrochlorothiazide 25 mg Tablet
25 mg PO DAILY Qty: 30 0RF
Refresh Classic (PF) 1.4-0.6 % Dropperette
1 drops BOTH EYES QIDPRN PRN (Reason: dry eyes) Qty: 5 0RF
alprazolam 0.25 mg tablet
0.25 mg PO DAILYPRN PRN (Reason: anxiety)
Patient Comments:
03/15/24: last filled 02/27/24 for 3 tablets
therapeutic multivitamin Tablet
1 tab PO DAILY
risperidone 2 mg Tablet
2 mg PO HS
sertraline 50 mg Tablet
50 mg PO DAILY
Discharge Date and Time
Print Language: LIBYAN
== END 2024-03-22 13:32 ==
LOC: 4 WEST ACU 17:21
PROVIDERS: Nurse Practitioner; ADMITTING PHYSICIAN Internal Medicine; ATTENDING PHYSICIAN Internal Medicine; EMERGENCY PHYSICIAN Emergency Medicine
DX: K94.01 Colostomy hemorrhage (principal); Y84.8 Other medical procedures as the cause of abnormal reaction of the patient, or of later complication, without mention of misadventure at the time of the procedure; Y73.2 Prosthetic and other implants, materials and accessory gastroenterology and urology devices associated with adverse incidents; Y92.9 Unspecified place or not applicable; R62.7 Adult failure to thrive; J44.9 Chronic obstructive pulmonary disease, unspecified; I10 Essential (primary) hypertension; F03.94 Unspecified dementia, unspecified severity, with anxiety; F03.93 Unspecified dementia, unspecified severity, with mood disturbance; F17.200 Nicotine dependence, unspecified, uncomplicated; E78.00 Pure hypercholesterolemia, unspecified; K21.9 Gastro-esophageal reflux disease without esophagitis; I48.0 Paroxysmal atrial fibrillation; D64.9 Anemia, unspecified; F32.9 Major depressive disorder, single episode, unspecified; E87.6 Hypokalemia; Z63.6 Dependent relative needing care at home; Z75.1 Person awaiting admission to adequate facility elsewhere; Z90.49 Acquired absence of other specified parts of digestive tract; Z85.3 Personal history of malignant neoplasm of breast; Z87.19 Personal history of other diseases of the digestive system; Z91.51 Personal history of suicidal behavior; Z66 Do not resuscitate; Z85.41 Personal history of malignant neoplasm of cervix uteri; Z88.8 Allergy status to other drugs, medicaments and biological substances
CPT/HCPCS: 80048; 80053; 81003; 82728; 83540; 85025; 85027; 97116; 97129; 97162; 97166; 97535; 99284; 99406; G0378

== ENCOUNTER 2024-05-02 22:20 | Inpatient (IN) | payer MEDICARE, SELFPAY ==
[2024-05-02] VITALS (7 sets, daily range): BP systolic 129–161; BP diastolic 60–104; BMI 30.7; BMI 29.7
[2024-05-02 19:10] LABS: % Eosinophils 2.3 % (0-6); % Immature Granulocytes 0.5 % (0-0.5); % Lymphocytes 10.6 % (20.5-51.1); % Monocytes 8.6 % (1.7-9.3); Absolute Basophils 0.1 10^3/uL (0-0.2); Absolute Eosinophils 0.2 10^3/uL (0-0.7); Absolute Lymphocytes 0.9 10^3/uL (1.2-3.4); Absolute Monocytes 0.8 10^3/uL (0.1-0.6); Absolute Neutrophils 6.7 10^3/uL (1.4-6.5); Hematocrit 32.7 % (37.0-47.0); Hemoglobin 11.5 g/dL (12.0-16.0); Mean Corp Hgb Conc. 35.2 g/dL (33.0-37.0); Mean Corpuscular Hgb 29.6 pg (27.0-31.0); Mean Corpuscular Volume 84.1 fL (81.0-99.0); Mean Platelet Volume 13.2 fL (7.4-10.4); Nucleated Red Blood Cells % 0 %; Platelet Count 260 10^3/uL (130-400); Red Blood Cell Count 3.89 10^6/uL (4.20-5.40); Red Cell Dist. Width 20.8 % (11.5-14.5); White Blood Cell Count 8.7 10^3/uL (4.8-10.8)
[2024-05-02 19:15] LABS: ALT (SGPT) 69 U/L (0-35); AST (SGOT) 134 U/L (14-36); Albumin 3.4 g/dl (3.5-5.0); Alkaline Phosphatase 943 U/L (38-126); Blood Urea Nitrogen 15 mg/dl (7-17); Calcium 8.5 mg/dl (8.4-10.2); Carbon Dioxide 20 mmol/L (22-30); Chloride 108 mmol/L (98-107); Estimated Creatinine Clearance 43 ml/min; Glucose 93 mg/dl (70-99); Potassium 4.2 mmol/L (3.5-5.1); Sodium 141 mmol/L (135-145); Total Bilirubin 5.7 mg/dl (0.2-1.3); Total Protein 7.2 g/dl (6.3-8.2); eGFR > 60.00
--- NOTE | 2024-05-02 19:36 | ED.GENMED ---
History of Present Illness
General
Chief Complaint: Abdominal Symptoms
Source: patient
Exam Limitations: none
Time Seen by Provider: 05/02/24 18:48
History of Present Illness
History of Present Illness:
This is a 79 year old female that comes in with c/o blood from her Colostomy. State that this started yesterday. States that she thought she better come in and see why. Denies any fever, chills, chest pain, SOB, abd pain, nausea, vomiting,
headache, dizziness, urinary burning.
Past History
Past History
ED Past Medical History: Arrthythmia (atrial fib), Cancer (Breast and Cervix), COPD, GERD, HTN, Hypercholesterolemia, Psychiatric (Anxiety) and Other (Diverticulitis, Sciatica, Hiatal hernia, )
ED Past Surgical History: Bowel resection (with Colostomy due to diverticulitis), Gynecological (D&C, Lumpectomy left) and Other (Cataracts)
Social History
Tobacco: Smoker (4 daily)
Alcohol: None
Drug: None
Personal:
Living: alone (Son)
Employment: Retired
Family History
Family History: Other (Noncontributory)
Review of Systems
Review of Systems
All Other Systems: ROS reviewed and negative except as documented in HPI and ROS
Constitutional: Reports no symptoms; Denies fever or chills
EENT: Reports no symptoms
Respiratory: Reports no symptoms; Denies cough or trouble breathing
Cardiac: Reports no symptoms; Denies chest pain
ABD/GI: Reports other (Blood from Colostomy); Denies abdominal pain, nausea or vomiting
: Reports no symptoms; Denies dysuria, frequency or urgency
Musculoskeletal: Reports no symptoms
Skin: Reports no symptoms
Neurological: Reports no symptoms; Denies dizzy or headache
Psychiatric: Reports no symptoms
Phy Exam
General Physical Exam
General Presentation: no apparent distress
General age: appears stated age
General Skin: warm and dry
General Habitus: elderly
General Mental: alert (but forgetful)
General Hydration: appears well hydrated
ENT Exam
ENT Exam: TM's normal, pharynx normal and neck supple
Eye Exam
Eye Exam: EOMI
Cardiovascular Exam
Cardiovascular Exam: regular rate/rhythm, no edema and normal peripheral pulses
Pulmonary Exam
Pulmonary Exam: lungs clear, no respiratory distress, no rales, chest non tender, no crackles, no rhonchi, no wheezing and no cough
Gastrointestinal Exam
Gastrointestinal Exam: normal bowel sounds, non tender, soft, no organomegaly, no pulsatile mass and non distended
External Findings: colostomy (Blood noted in colostomy bag)
Musculoskeletal Exam
Musculoskeletal Exam: full ROM and no edema
Skin Exam
Skin Exam: warm/dry, no rash, no petechia and other (Very slightly Jaundice)
Psychiatric Exam
Psychiatric Exam: normal mood/affect
Course
Orders/Labs/Results
Orders:
Orders
05/02/24 18:47
Complete Blood Count/With Diff Urgent
Comprehensive Metabolic Panel Urgent
05/02/24 19:30
CT Angio Abd/Pelvis w/wo IV [CT Abd/pelvis Angio W/wo Iv] Urgent
Comment:
Reason For Exam: Bleeding from Colostomy
05/02/24 19:35
0.9% Sodium Chloride 1000 ml [Nss] 1,000 ml IV BOLUS
Abnormal Lab Results
05/02/24
18:47
RBC 3.89 L 10^6/uL
(4.20-5.40)
Hgb 11.5 L g/dL
(12.0-16.0)
Hct 32.7 L %
(37.0-47.0)
RDW 20.8 H %
(11.5-14.5)
MPV 13.2 H fL
(7.4-10.4)
Absolute Neuts (auto) 6.7 H 10^3/uL
(1.4-6.5)
Absolute Lymphs (auto) 0.9 L 10^3/uL
(1.2-3.4)
Absolute Monos (auto) 0.8 H 10^3/uL
(0.1-0.6)
Neutrophils % 77.0 H %
(42.2-75.2)
Lymphocytes % 10.6 L %
(20.5-51.1)
Chloride 108 H mmol/L
(98-107)
Carbon Dioxide 20 L mmol/L
(22-30)
Total Bilirubin 5.7 H mg/dl
(0.2-1.3)
AST 134 H U/L
(14-36)
ALT 69 H U/L
(0-35)
Alkaline Phosphatase 943 H U/L
(38-126)
Albumin 3.4 L g/dl
(3.5-5.0)
05/02/24 18:47
05/02/24 18:47
H/H slightly low. Carbon dioxide slightly low. Total charito elevated. AST/ALT elevation. Alk phos elevation (concerns for metastatic disease)
Vital Signs
Initial and Last Documented VS:
Initial Vital Signs
Temp Pulse Resp BP Pulse Ox
98.0 F 63 16 149/60 98
05/02/24 16:58 05/02/24 16:58 05/02/24 16:58 05/02/24 16:58 05/02/24 16:58
Last Documented Vital Signs
Temp Pulse Resp BP Pulse Ox
98.0 F 56 15 156/88 99
05/02/24 16:58 05/02/24 18:48 05/02/24 18:48 05/02/24 18:48 05/02/24 18:48
MDM/Problems Addressed
Differential Diagnosis Includes:
Metastatic disease, GI bleeding
MDM/Problems Addressed:
This is a 79 year old female that comes in with c/o blood from her Colostomy bag. States that this started yesterday.
Will check labs and get CTA of abd/pelvis. Will give IV fluids.
CT cont-there is a peristomal hernia contains a portion of colon. This herniated colon contains diverticula, but no convincing CT evidence for diverticulitis. Moderate to large hiatal hernia/partially intrathoracic stomach. Adjacent compressive
atelectasis in the medial left lower long.
Back into see patient. Explained that she would be admitted for further evaluation. There appears on CT that there may be a mass of the common bile duct.. This is suspicious for Cancer. Will admit patient for further evaluation. Hospitalist
notified.
Chronic conditions affecting care: Cancer
Acute Exacerbation and/or Progression of Chronic Illness: Cancer
*Radiology
Radiology exam reviewed: radiology read reviewed (CT-There is diffuse intrahepatic bile duct dilation. Concern is raised for a central obstructing mass, superior margin of a thickened and enhancing common hepatic duct. Findings are felt to be most
suspicious for cholangiocarcinoma. Main differential consideration of obstructing mass from ), all reviewed NAD by ED Provider (CT cont-hepatocellular carcinoma or metastatic disease. Seem unlikely that bile duct inflammation alone could result in
this degree of diffuse intrahepatic bile duct dilation. Loss of definition of the common bile duct within the head of the pancreas, nonspecific. No convincing evidence for a) and other (CT cont-pancreatic head mass lesion. Multiple small lymph nodes
in the region of the gastrohepatic ligament as well as the perioartic and interaortocaval region. These are not enlarged by size criteria, but with still represent neoplastic lymph nodes. Colostomy is present in the left lower abdomen, )
*Pulse Oximetry
Patient hypoxic: no
*EKG
Interpreted by ED Provider?: NA
Rate: EKG- N/A
*Bleach Plant Operator Interpretation
Rate: Bleach Plant Operator- N/A
*Critical Care Note
Total Time (30-74mins, 75-104mins- exclusive of procedures): Not Applicable
ED Attending Note
-
Portions of this chart may have been created with voice recognition software.� Occasional wrong word or��sound alike� substitutions may have occurred due to the inherent limitations of voice recognition software.
Discharge Plan
Departure
Patient Disposition: Admit
Date of Disposition: 05/02/24
Time of Disposition: 21:42
Admit to: Med/Surg
Presentation/result/management discussed w/ accepting MD/DO: Hospitalist
Patient with high blood pressure during this ER visit?: Yes
Condition: Good
Covid-19: Not Applicable
Discharge Problem:
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
Prescriptions:
No Action
nitroglycerin 0.4 mg Tablet, Sublingual
0.4 mg sublingual [id number] PRN (Reason: CP) Qty: 30 0RF
hydrochlorothiazide 25 mg Tablet
25 mg PO DAILY Qty: 30 0RF
Refresh Classic (PF) 1.4-0.6 % Dropperette
1 drops BOTH EYES QIDPRN PRN (Reason: dry eyes) Qty: 5 0RF
alprazolam 0.25 mg tablet
0.25 mg PO DAILYPRN PRN (Reason: anxiety)
Patient Comments:
03/15/24: last filled 02/27/24 for 3 tablets
therapeutic multivitamin Tablet
1 tab PO DAILY
risperidone 2 mg Tablet
2 mg PO HS
sertraline 50 mg Tablet
50 mg PO DAILY
Referrals:
UNKNOWN - PT DOES,NOT KNOW [Family Provider] -
Interventions
Interventions:
*Risk Screen - Suicide Last Done: 05/02/24 16:58
*General Assessment Last Done: 05/02/24 18:47
*Neglect/Abuse Screening Last Done: 05/02/24 16:58
*ED COVID-19 Vaccine History Last Done: 05/02/24 18:47
AD-Jztlqd-Fwqobkcdsy Assessment Last Done: 05/02/24 21:05
Discharge Date and Time
Print Language: UKRAINIAN
[2024-05-02] MEDS: NSS 1000 IV (19:49)
--- NOTE | 2024-05-02 21:42 | HPS.HSE ---
Family Physician
-
Family Physician: NOT KNOW UNKNOWN - PT DOES
Chief Complaint
-
bleeding colostomy
History of Present Illness
79 year old with PMH for diverticulitis, HTN, dyslipidemia, colitis, colon polyps presented to us with blood from her Colostomy for past three days. Denies any fever, chills, chest pain, SOB, abd pain, nausea, vomiting, headache, dizziness,
urinary burning.
CT with concern for obstructing mass and cholangiocarcinoma
admitting fo further management
Medical History
Past Medical History
Past Medical History: Reports Other
Additional Past Medical History:
diverticulitis
htn
dyslipidemia
colitis
colon polyps
hiatal hernia
macular degeneration
COPD
[place]arrama's Esophagus
left breast ca
diverticulosis
htn
Past Surgical History: Reports Other
Additional Past Surgical History:
left lumpectomy
Social History
Tobacco: Smoker (4-5 ciggrettes daily)
Alcohol: None
Drug: None
Personal: Single
Living: [facility]
Family History
Family History: Not pertinent
Allergies / Home Medications
Allergies reflects when Allergies were last updated in [facility].
Home Medications with original date entered in [facility]
Allergy/Medication List:
Allergies
Allergy/AdvReac Type Severity Reaction Status Date / Time
lorazepam [From Ativan] Allergy pt with Verified 05/02/24 17:00
change in
mental
status,
confusion
Home Medications
nitroglycerin 0.4 mg sublingual tablet 0.4 mg sublingual [id number] PRN CP #30 tabs 02/20/24
polyvinyl alcohol-povidone (PF) 1.4 %-0.6 % eye drops in a dropperette (Refresh Classic (PF)) 1 drops BOTH EYES QIDPRN PRN dry eyes #5 ea 02/20/24
acetaminophen 325 mg tablet (Tylenol) 650 mg PO Q4HPRN PRN mild pain/temp >100 05/02/24
bisacodyl 10 mg rectal suppository (Dulcolax (bisacodyl)) 10 mg RI DAILYPRN PRN mom ineffective after 24 hours 05/02/24
magnesium hydroxide 400 mg/5 mL oral suspension (Milk of Magnesia) 30 ml PO [id number] PRN no bm 3 days 05/02/24
risperidone 2 mg tablet 2 mg PO HS 05/02/24
sertraline 50 mg tablet 50 mg PO DAILY 05/02/24
sodium phosphates 19 gram-7 gram/118 mL enema (Fleet Enema) 118 ml RI DAILYPRN PRN if dulcolax ineffective after 24 hours 05/02/24
therapeutic multivitamin 1 tab PO DAILY 05/02/24
valsartan 40 mg tablet 40 mg PO DAILY 05/02/24
Review of Systems
-
Constitutional: Reports No Symptoms
EENT: Reports No Symptoms
Respiratory: Reports No Symptoms
Cardiac: Reports No Symptoms
Abdomen/GI: Reports Other (bleeding colostomy)
: Reports No Symptoms
Musculoskeletal: Reports No Symptoms
Skin: Reports No Symptoms
Neurological: Reports No Symptoms
Endocrine: Reports No Symptoms
Hematologic/Lymphatic: Reports No Symptoms
Psych: Reports No Symptoms
Physical Exam
Vital Signs
Vital Signs
Temp Pulse Resp BP Pulse Ox
98.0 F 66 19 129/93 99
05/02/24 16:58 05/02/24 21:30 05/02/24 21:30 05/02/24 21:08 05/02/24 21:30
Physical Exam
General: Well Developed, Well Nourished and No Apparent Distress
HEENT: NormoCephalic, Moist mucous membranes and Atraumatic
Respiratory: Clear
Cardiac: S1/S2 and Regular Rhythm; No Murmur or Rub
GI: Soft, Non Tender, Non Distended, Normal Bowel Sounds and Ostomy (with bright red blood); No Organomegaly
Rectal: Deferred by Provider
Musculoskeletal: No Clubbing, No Cyanosis and No Edema
Skin: No Rash
Neuro: AO x 3 and Nonfocal/grossly intact
Psych: Calm
Laboratory Results
-
05/02/24 18:47
05/02/24 18:47
Laboratory Results
Total Bilirubin 5.7 mg/dl (0.2-1.3) H 05/02/24 18:47
AST 134 U/L (14-36) H 05/02/24 18:47
ALT 69 U/L (0-35) H 05/02/24 18:47
Alkaline Phosphatase 943 U/L (38-126) H 05/02/24 18:47
Data Reviewed
-
CT Scan: Report Reviewed by me
Lab Data: Labs Reviewed by me
Impression/Plan
-
#bleeding from colostomy likely from nodules on the stoma
#transaminitis
#concern for obstructing mass, cholangiocarcinoma
-hgb stable at 11.5
-total bili 5.7, AST 134,ALT 69,Lk 943
-as per colorectal, If they do bleed again silver nitrate application may be warranted.
-trend LFT's
-CT abdomen pelvis with There is diffuse intrahepatic bile duct dilation. Concern is raised for a central obstructing mass, superior margin of a thickened and enhancing common hepatic duct. Findings are felt to be most suspicious for
cholangiocarcinoma. Main differential consideration of obstructing mass from hepatocellular carcinoma or metastatic disease.Seem unlikely that bile duct inflammation alone could result in this degree of diffuse intrahepatic bile duct dilation.Loss
of definition of the common bile duct within the head of the pancreas, nonspecific. No convincing evidence for a pancreatic head mass lesion.Multiple small lymph nodes in the region of the gastrohepatic ligament as well as the periaortic and
interaortocaval region. These are not enlarged by size criteria, but with still represent neoplastic lymph nodes.Colostomy is present in the left lower abdomen, there is a peristomal hernia contains a portion of colon. This herniated colon contains
diverticula, but no convincing CT evidence for diverticulitis.
Moderate to large hiatal hernia/partially intrathoracic stomach. Adjacent compressive atelectasis in the medial left lower lung.
-will consult colorectal and GI
#anxiety
#Dementia, unspecified
-Risperdal continued
-sertraline continued
#Essential HTN
-valsartan continued
#DVT ppx scd
Full code
--- NOTE | 2024-05-02 22:16 | W.PN.UPDATE ---
Update Note
Progress Note Update
This is an addendum to the H&P written by Evelyne Goddard on 05/02/2024. Patient seen and examined independently with MACHINE CLOTHING MAN.
79-year-old female past medical history of complicated diverticulitis status post hemicolectomy with colostomy in 2019, hypertension, COPD, anxiety/depression, suicidal ideations, presenting with bleeding from colostomy which started over the past
few days. Output from ostomy has been normal. No abdominal pain or vomiting. No symptoms of anemia.
Labs show transaminitis with elevated alkaline phosphatase. CT abdomen pelvis shows diffuse intrahepatic bile duct dilatation with concern for central obstructing mass at the common hepatic duct likely cholangiocarcinoma.
Bleeding from the ostomy likely secondary to stomal bleeding. Patient was seen by colorectal in the past and was recommended to have silver nitrate if recurrent bleeding.
GI consulted for hepatic duct mass.
[2024-05-03] MEDS: RISPERDAL 2 MG PO ×2 (00:40→21:35)
--- NOTE | 2024-05-03 03:18 | TRANSFER ---
pt arrived from ED via stretcher accompanied by ED staff. pt walked from stretcher to bed with a standby assist. AAOx3, VSS, pt oriented to room, call clarke within reach. plan of care ongoing.
[2024-05-03 07:14] LABS: ALT (SGPT) 56 U/L (0-35); AST (SGOT) 106 U/L (14-36); Albumin 2.7 g/dl (3.5-5.0); Alkaline Phosphatase 756 U/L (38-126); Blood Urea Nitrogen 11 mg/dl (7-17); Calcium 8.3 mg/dl (8.4-10.2); Carbon Dioxide 21 mmol/L (22-30); Chloride 111 mmol/L (98-107); Estimated Creatinine Clearance 48 ml/min; Glucose 85 mg/dl (70-99); Potassium 3.4 mmol/L (3.5-5.1); Sodium 141 mmol/L (135-145); Total Bilirubin 5.8 mg/dl (0.2-1.3); Total Protein 5.8 g/dl (6.3-8.2); eGFR > 60.00
[2024-05-03 07:25] LABS: Hemoglobin 10.5 g/dL (12.0-16.0); Mean Corpuscular Volume 85.7 fL (81.0-99.0); Mean Platelet Volume 12.1 fL (7.4-10.4); Platelet Count 222 10^3/uL (130-400); Red Cell Dist. Width 20.9 % (11.5-14.5)
[2024-05-03 07:30] VITALS: BP 153/72
[2024-05-03] MEDS: DIOVAN 40 MG PO (08:20)
[2024-05-03] MEDS: ZOLOFT 50 MG PO (08:20)
--- NOTE | 2024-05-03 10:59 | W.PN.HOSP.TC ---
Today's Communication/Plan
-
Follow HH
Await GI /CRS input.
Assessment / Plan
Assessment / Plan
#Bleeding from colostomy likely from nodules on the stoma - ongoing - consult CRS. HH stable compared to last month.
# Abnormal LFTs with cholestatic hepatitis picture-CT of the abdomen pelvis raises a concern for obstructing mass to the common hepatic duct. GI consulted. MRI abdomen vs EUS . Patient is without any GI symptoms currently.
-trend LFT's
-CT abdomen pelvis with There is diffuse intrahepatic bile duct dilation. Concern is raised for a central obstructing mass, superior margin of a thickened and enhancing common hepatic duct. Findings are felt to be most suspicious for
cholangiocarcinoma. Main differential consideration of obstructing mass from hepatocellular carcinoma or metastatic disease.Seem unlikely that bile duct inflammation alone could result in this degree of diffuse intrahepatic bile duct dilation.Loss
of definition of the common bile duct within the head of the pancreas, nonspecific. No convincing evidence for a pancreatic head mass lesion.Multiple small lymph nodes in the region of the gastrohepatic ligament as well as the periaortic and
interaortocaval region. These are not enlarged by size criteria, but with still represent neoplastic lymph nodes.Colostomy is present in the left lower abdomen, there is a peristomal hernia contains a portion of colon. This herniated colon contains
diverticula, but no convincing CT evidence for diverticulitis.
Moderate to large hiatal hernia/partially intrathoracic stomach. Adjacent compressive atelectasis in the medial left lower lung.
-will consult colorectal and GI
#anxiety
#Dementia, unspecified
-Risperdal continued
-sertraline continued
#Essential HTN
-valsartan continued
#DVT ppx scd
Full code
Anticipated Discharge: > 48 hours
Subjective/Interval History
-
Date of Service: May 03, 2024
Patient without GI symptoms. She had some blood in the ostomy bag today. No dizziness.
No abdominal pain, nausea, or vomiting. No appetite issues. Denies any weight changes.
Objective Data
-
Labs:
Laboratory Results
05/03/24
06:53
WBC 7.0
Hgb 10.5 L
Hct 30.0 L
Plt Count 222
Sodium 141
Potassium 3.4 L
Chloride 111 H
Carbon Dioxide 21 L
BUN 11
Creatinine 0.8
Glucose 85
Calcium 8.3 L
Total Bilirubin 5.8 H
AST 106 H
ALT 56 H
Alkaline Phosphatase 756 H
Vital Signs:
Vital Signs
Temp Pulse Resp BP Pulse Ox
97.8 F 56 20 153/72 98
05/03/24 07:30 05/03/24 07:30 05/03/24 07:30 05/03/24 07:30 05/03/24 10:05
I&O
05/02/24 05/03/24 05/04/24
06:59 06:59 06:59
Intake Total 0 / 0
Balance 0 / 0
Review of Systems
-
Constitutional: Denies Fever
Respiratory: Denies Trouble Breathing
Cardiac: Denies Chest Pain
Physical Exam
-
General: No Apparent Distress
HEENT: Moist Mucous Membranes
Respiratory: Clear to Auscultation
Cardiac: Regular Rhythm and S1/S2
GI: Soft, Nontender, Nondistended, Normal Bowel Sounds, No Hepatosplenomegaly and Ostomy (With some blood in the bag)
Neuro: AO x 3
Psych: Calm
Data Reviewed
-
Labs: Labs Reviewed by me
--- NOTE | 2024-05-03 11:16 | CON.GI ---
Addendum entered and electronically signed by Vinicius Kay DO 05/03/24 18:05:
I saw and examined the patient.
The DYE PADDER OPERATOR's note was reviewed and I agree with the note.
Comment: This is a 79 y.o female with past medical history of HTN, HLD, COPD, L breast cancer (s/p lumpectomy), non-dysplastic Guadarrama's esophagus, and complicated diverticulitis (s/p Spring's 01/2022, was not a candidate for reversal) who initially
presented with bright red blood in her colostomy bag along with painless jaundice. Labs notable for LFTs with AST 134, ALT 69, ALP 943, and T Bili 5.7. Of note, previous LFTs on 03/16/2024 with a total bilirubin 0.3 AST 36 ALT of 20 and alk phos 107.
CBC with Hgb 11.5 (prev 10s) with WBC 7.[address] Abd/pelvis with WWO IV contrast revealing diffuse intrahepatic bile duct dilation and concern for central obstructing mass arising from the superior margin of the common hepatic duct, and
there is enhancement and thickening of the common hepatic duct inferior to the mass. 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 Otherwise, no signs or symptoms to suggest biliary sepsis
and/or cholangitis.
Recommendations:
- Trend serial LFTs and total fractionated bilirubin
- Tumor markers: AFP 1.51, CEA 1.28, pending CA 19-9
- Observe off IV abx as without signs of biliary sepsis
- Trend Hgb with serial CBC, no further signs of bleeding from colostomy
- Obtain MRI/MRCP WWO contrast to better define CHD mass and hepatobiliary anatomy
- No plans for endoscopic intervention at this time
- Appreciate CRS regarding concern for ostomy bleed, seems to be improving / resolved
- Pain control PRN
- Rest of care as outlined below
GI team will continue to follow while inpatient.
Thank you for allowing me to participate in the care of this patient. Please do not hesitate to call for any further questions.
Original Note:
Consultation
-
Date/Time Consultation Requested: 05/02/24 2250
Date/Time Consultation Performed: 05/03/24 1100
Requesting Provider: OZ Linton
Performing Provider: Dr. Kay/OZ Torres
Reason for Consultation: concern for cholangiocarcinoma
Medical History
Chief Complaint / HPI
Chief Complaint: bleeding from colostomy
History of Present Illness:
79-year-old female with past medical history of hypertension, COPD, complicated diverticulitis status post hemicolectomy with colostomy in 2019, paroxysmal atrial fibrillation not on anticoagulation, history of breast and cervical cancer, history of
hospitalization for intentional drug overdose in January 2024 with transfer to inpatient psych, Guadarrama's esophagus, intermittent bleeding from granulated area of stoma, failure to thrive, anxiety, history of suicidal ideations, depression, memory
impairment, chronic anemia who presents to the emergency room with blood out of her colostomy bag. The patient had a CT of the abdomen and pelvis with angiography performed which did not show any signs of active bleeding however did show diffuse
intrahepatic bile duct dilatation with concern raised for central obstructing mass in the superior margin of the thickened and enhance common hepatic duct. We are asked to evaluate for possible cholangiocarcinoma seen on imaging. The patient does
admit that she comes in for bleeding from her ostomy however denies any abdominal pain. She denies any fevers, chills, nausea, vomiting, acholic stools or bilirubinuria. She denies any early satiety or unintentional weight loss. She denies any
pruritus. She denies any family history of gastrointestinal malignancy or inflammatory bowel disease. She denies any family history of pancreatic cancer. The patient states that she still does smoke. She does not drink any alcohol.
Past Medical History
Past Medical History: Arrhythmias (Paroxysmal A-fib), Cancer (Breast cancer, cervical cancer), COPD and Other (Intentional drug overdose January 2024 (inpatient psych), Guadarrama's esophagus, intermittent bleeding from granulated area stoma, failure to
thrive, anxiety, depression, memory impairment, chronic anemia)
Past Surgical History: Other (Bowel resection, D&C, lumpectomy)
Social History
Tobacco: Smoker
Alcohol: None
Drug: None
Personal: Other (Son with schizophrenia)
Living: Shelter
Family History
Family History: Other (Patient denies any family history of gastrointestinal malignancy or IBD)
Allergies / Home Medications
Allergy/AdvReac Type Severity Reaction Status Date / Time
lorazepam [From Ativan] Allergy pt with Verified 05/02/24 17:00
change in
mental
status,
confusion
�Medication �Instructions �Recorded
nitroglycerin 0.4 mg sublingual 0.4 mg sublingual [id number] PRN CP 02/20/24
tablet #30 tabs
polyvinyl alcohol-povidone (PF) 1 drops BOTH EYES QIDPRN PRN dry 02/20/24
1.4 %-0.6 % eye drops in a eyes #5 ea
dropperette (Refresh Classic (PF))
acetaminophen 325 mg tablet 650 mg PO Q4HPRN PRN mild 05/02/24
(Tylenol) pain/temp >100
bisacodyl 10 mg rectal suppository 10 mg AK DAILYPRN PRN mom 05/02/24
(Dulcolax (bisacodyl)) ineffective after 24 hours
magnesium hydroxide 400 mg/5 mL 30 ml PO [id number] PRN no bm 3 days 05/02/24
oral suspension (Milk of Magnesia)
risperidone 2 mg tablet 2 mg PO HS Mental Health/Anxiety 05/02/24
sertraline 50 mg tablet 50 mg PO DAILY Depression 05/02/24
sodium phosphates 19 gram-7 118 ml AK DAILYPRN PRN if dulcolax 05/02/24
gram/118 mL enema (Fleet Enema) ineffective after 24 hours
therapeutic multivitamin 1 tab PO DAILY Supplement 05/02/24
valsartan 40 mg tablet 40 mg PO DAILY Blood Pressure 05/02/24
Review of Systems
-
All other systems: A 12 pt ROS was Negative except as stated above in HPI
Vital Signs
Temp Pulse Resp BP Pulse Ox
97.8 F 56 20 153/72 98
05/03/24 07:30 05/03/24 07:30 05/03/24 07:30 05/03/24 07:30 05/03/24 10:05
Physical Exam
Exam
General: No Apparent Distress
HEENT: Other (Scleral icterus)
Respiratory: Clear (Anterior)
Cardiac: Regular Rhythm
GI: Soft, Non Tender, Non Distended and Other (Ostomy right upper quadrant, blood in ostomy bag)
Skin: Warm and Dry
Neuro: AO x 3
Psych: Calm
Results
WBC 7.0 10^3/uL (4.8-10.8) 05/03/24 06:53
Hgb 10.5 g/dL (12.0-16.0) L 05/03/24 06:53
Hct 30.0 % (37.0-47.0) L 05/03/24 06:53
MCV 85.7 fL (81.0-99.0) 05/03/24 06:53
Plt Count 222 10^3/uL (130-400) 05/03/24 06:53
Absolute Neuts (auto) 6.7 10^3/uL (1.4-6.5) H 05/02/24 18:47
Sodium 141 mmol/L (135-145) 05/03/24 06:53
Potassium 3.4 mmol/L (3.5-5.1) L 05/03/24 06:53
Chloride 111 mmol/L (98-107) H 05/03/24 06:53
Carbon Dioxide 21 mmol/L (22-30) L 05/03/24 06:53
BUN 11 mg/dl (7-17) 05/03/24 06:53
Creatinine 0.8 mg/dL (0.6-1.0) 05/03/24 06:53
Calcium 8.3 mg/dl (8.4-10.2) L 05/03/24 06:53
Total Bilirubin 5.8 mg/dl (0.2-1.3) H 05/03/24 06:53
AST 106 U/L (14-36) H 05/03/24 06:53
ALT 56 U/L (0-35) H 05/03/24 06:53
Alkaline Phosphatase 756 U/L (38-126) H 05/03/24 06:53
Diagnostic Image Results:
CT abdomen pelvis angio:
IMPRESSION: There is diffuse intrahepatic bile duct dilation. Concern is raised for a central obstructing mass, superior margin of a thickened and enhancing common hepatic duct. Findings are felt to be most suspicious for cholangiocarcinoma. Main
differential consideration of obstructing mass from hepatocellular carcinoma or metastatic disease.
Seem unlikely that bile duct inflammation alone could result in this degree of diffuse intrahepatic bile duct dilation.
Loss of definition of the common bile duct within the head of the pancreas, nonspecific. No convincing evidence for a pancreatic head mass lesion.
Multiple small lymph nodes in the region of the gastrohepatic ligament as well as the periaortic and interaortocaval region. These are not enlarged by size criteria, but with still represent neoplastic lymph nodes.
Colostomy is present in the left lower abdomen, there is a peristomal hernia contains a portion of colon. This herniated colon contains diverticula, but no convincing CT evidence for diverticulitis.
Moderate to large hiatal hernia/partially intrathoracic stomach. Adjacent compressive atelectasis in the medial left lower lung.
Prior GI Procedures:
EGD: Dr. Curran 08/03/2009: - Normal examined duodenum. This was biopsied.
- Non-bleeding erosive gastropathy. This was biopsied.
- Hiatus hernia.
- Esophageal mucosal changes consistent with
short-segment Guadarrama's esophagus. This was biopsied.
Colonoscopy: 08/03/2009 Dr. Solano: - Diverticulosis in the sigmoid colon, in the descending
colon and in the transverse colon.
Assessment / Plan
-
79-year-old female with past medical history of hypertension, COPD, complicated diverticulitis status post hemicolectomy with colostomy in 2019, paroxysmal atrial fibrillation not on anticoagulation, history of breast and cervical cancer, history of
hospitalization for intentional drug overdose in January 2024 with transfer to inpatient psych, Guadarrama's esophagus, intermittent bleeding from granulated area of stoma, failure to thrive, anxiety, history of suicidal ideations, depression, memory
impairment, chronic anemia who presents to the emergency room with blood out of her colostomy bag. The patient had a CT of the abdomen and pelvis with angiography performed which did not show any signs of active bleeding however did show diffuse
intrahepatic bile duct dilatation with concern raised for central obstructing mass in the superior margin of the thickened and enhance common hepatic duct. We are asked to evaluate for possible cholangiocarcinoma seen on imaging. WBC 7.0,
hemoglobin 10.5, hematocrit 30.0, platelets 222, no coags, sodium 141, potassium 3.4, BUN 11, creatinine 0.8, total bilirubin 5.8 with direct 5.0, AST 106, ALT 56, alk phos 756. Of note patient was just hospitalized in March. She had normal
LFTs on 03/16/2024 with a total bilirubin 0.3 AST 36 ALT of 20 and alk phos 107.
Impression:
Obstructive jaundice
Concern for central obstructing mass
Moderate to large hiatal hernia/partially intrathoracic stomach
Colostomy
Plan:
-Obtain MRI with MRCP
-Trend LFTs
-Check AFP, CEA and CA 19-9
-Further recommendations to be forthcoming
-
-
Thank you for consultation and allowing me to participate in the patient's care. Please call the personal lines account executive GI physician during the after hours with any questions or concerns.
--- NOTE | 2024-05-03 11:42 | CON.CRS ---
Consultation
-
Date/Time Consultation Requested: 05/02/2024, 23:59
Date/Time Consultation Performed: 05/03/2024, 09:30
Requesting Provider: Evelyne Goddard
Performing Provider: Michael Rueda MD
Reason for Consultation: bleeding from stoma
Medical History
-
Chief Complaint: bleeding stoma
History of Present Illness:
79-year-old female who presents to [facility] emergency department last night complaining of bleeding from her colostomy that day. She denied nausea or vomiting. She denies fevers or chills. She has had episodes of stomal bleeding in the
past and had been seen in consult by Dr. Eller in February 2024. The bleeding had stopped on its own and no intervention was performed. Her hemoglobin was stable during last admission and she did not require any transfusions. Prior to this she had
underwent a sigmoidectomy with colostomy due to large bowel obstruction in February [address] Eller. On admission her hemoglobin was 11.5 and is 10.5 today. The patient states the bleeding has since stopped. CT of the abdomen and pelvis shows a
diffuse intrahepatic bile duct dilation. Concern raised for a central obstructing mass to superior margin of a thickened enhancing common hepatic duct. 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 We have been consulted for further opinion
regarding the ostomy bleeding.
Past Medical History
Past Medical History: Arrhythmias, Cancer (breast/cervical), COPD and Other (history of drug overdose, Guadarrama's esophagus, intermittent bleeding from granulated area stoma, failure to thrive, anxiety, depression, memory impairment, chronic anemia)
Past Surgical History: Bowel Resection (sigmoidectomy with colostomy- 2019) and Other (D&C, lumpectomy)
Social History
Tobacco: Smoker
Alcohol: None
Drug: None
Family History
Family History: Reviewed & Not Pertinent
Allergies / Home Medications
Allergy/AdvReac Type Severity Reaction Status Date / Time
lorazepam [From Ativan] Allergy pt with Verified 05/02/24 17:00
change in
mental
status,
confusion
�Medication �Instructions �Recorded �Confirmed �Type
nitroglycerin 0.4 mg sublingual 0.4 mg sublingual [id number] PRN CP 02/20/24 05/02/24 Rx
tablet #30 tabs
polyvinyl alcohol-povidone (PF) 1 drops BOTH EYES QIDPRN PRN dry 02/20/24 05/02/24 Rx
1.4 %-0.6 % eye drops in a eyes #5 ea
dropperette (Refresh Classic (PF))
acetaminophen 325 mg tablet 650 mg PO Q4HPRN PRN mild 05/02/24 05/02/24 History
(Tylenol) pain/temp >100
bisacodyl 10 mg rectal suppository 10 mg FL DAILYPRN PRN mom 05/02/24 05/02/24 History
(Dulcolax (bisacodyl)) ineffective after 24 hours
magnesium hydroxide 400 mg/5 mL 30 ml PO [id number] PRN no bm 3 days 05/02/24 05/02/24 History
oral suspension (Milk of Magnesia)
risperidone 2 mg tablet 2 mg PO HS Mental Health/Anxiety 05/02/24 05/02/24 History
sertraline 50 mg tablet 50 mg PO DAILY Depression 05/02/24 05/02/24 History
sodium phosphates 19 gram-7 118 ml FL DAILYPRN PRN if dulcolax 05/02/24 05/02/24 History
gram/118 mL enema (Fleet Enema) ineffective after 24 hours
therapeutic multivitamin 1 tab PO DAILY Supplement 05/02/24 05/02/24 History
valsartan 40 mg tablet 40 mg PO DAILY Blood Pressure 05/02/24 05/02/24 History
Review of Systems
-
History Source: Patient
Abdomen/GI: Other (bleeding colostomy)
A 10 point review of systems was completed, and was negative except as per HPI.
Physical Exam
Vital Signs
Temp 97.8 F 05/03/24 07:30
Pulse 56 05/03/24 07:30
Resp Rate 20 05/03/24 07:30
Blood pressure 153/72 05/03/24 07:30
SaO2 98 05/03/24 10:05
05/02/24 05/03/24 11
06:59 06:59 06:59
Actual Weight 68.946 kg
Body Mass Index (BMI) 29.7
Lab Results / Allergies
05/03/24 06:53
05/03/24 06:53
WBC 7.0 10^3/uL (4.8-10.8) 05/03/24 06:53
Hgb 10.5 g/dL (12.0-16.0) L 05/03/24 06:53
Hct 30.0 % (37.0-47.0) L 05/03/24 06:53
Plt Count 222 10^3/uL (130-400) 05/03/24 06:53
Abs Immat Gran (auto) 0.0 10^3/uL (0-0.05) 05/02/24 18:47
Neutrophils % 77.0 % (42.2-75.2) H 05/02/24 18:47
Allergy/AdvReac Type Severity Reaction Status Date / Time
lorazepam [From Ativan] Allergy pt with Verified 05/02/24 17:00
change in
mental
status,
confusion
Physical Exam
General: Well Developed, Well Nourished and No Apparent Distress
GI: Soft, Non Tender, Non Distended and Other (colostomy warm and pink, old blood noted in colostomy bag, no evidence of active bleeding)
Neuro: AO x 3
Data Reviewed
-
CT Scan: Image Personally Visualized and interpreted, Report Reviewed by me and Discussed with Patient
Labs: Labs Reviewed by me, Discussed with Physician and Discussed with Patient
Old Records: Reviewed
Assessment / Plan
-
Assessment: bleeding colostomy, now resolved
Plan:
-Bleeding has currently ceased, monitor.
-Trend CBC daily.
-If rebleeds, will apply silver nitrate.
-No plans for surgery
-Will consult wound RN for stoma management
[2024-05-03 13:17] LABS: CEA 1.28 ng/ml
[2024-05-03 13:22] LABS: AFP Male/Tumor Marker 1.51 ng/ml
--- NOTE | 2024-05-03 14:09 | WOUNDNOTE ---
[facility] RN NOTE: Reviewed chart and met with patient. Patient admitted with bleeding from stoma. Patient has had ostomy since 2019. At time of assessment no bleeding was noted. Peristomal skin intact. Ostomy appliance changed with Ruth Ann barrier #
[id number], and pouch # [id number]. Patient denies problems with leaking. All ostomy care provided by [facility]. Ostomy supplies at bedside. OJ Treviño given update. Will sign off.
--- NOTE | 2024-05-03 14:44 | CM ---
Alert awake forgetful patient who lives jail at [facility] for last 2 month.Spoke with Grace soriano for [facility] pt has bed hold.Pt is forgetful CM spoke with her sister Latosha.She is assisted in all ADLs. she uses a walker. Return to [facility] at
dc.
[facility]
PCP Dr Yusuf
PLAN Return to [facility] at [place].
[2024-05-03 15:25] VITALS: BP 139/75
[2024-05-03 23:37] VITALS: BP 172/91
[2024-05-04 01:21] VITALS: BP 155/62
[2024-05-04 07:10] LABS: Hematocrit 31.5 % (37.0-47.0); Hemoglobin 11.1 g/dL (12.0-16.0); Mean Corp Hgb Conc. 35.2 g/dL (33.0-37.0); Mean Corpuscular Volume 85.1 fL (81.0-99.0); Mean Platelet Volume 12.9 fL (7.4-10.4); Platelet Count 235 10^3/uL (130-400); Red Cell Dist. Width 20.7 % (11.5-14.5); White Blood Cell Count 7.5 10^3/uL (4.8-10.8)
[2024-05-04 07:30] VITALS: BP 130/58
[2024-05-04 07:40] LABS: ALT (SGPT) 53 U/L (0-35); AST (SGOT) 102 U/L (14-36); Albumin 2.7 g/dl (3.5-5.0); Alkaline Phosphatase 771 U/L (38-126); Blood Urea Nitrogen 14 mg/dl (7-17); Calcium 8.4 mg/dl (8.4-10.2); Carbon Dioxide 24 mmol/L (22-30); Chloride 109 mmol/L (98-107); Direct Bilirubin 5.9 mg/dl (0.0-0.4); Estimated Creatinine Clearance 42 ml/min; Glucose 76 mg/dl (70-99); Potassium 3.6 mmol/L (3.5-5.1); Sodium 142 mmol/L (135-145); Total Bilirubin 6.7 mg/dl (0.2-1.3); Total Protein 5.8 g/dl (6.3-8.2); eGFR > 60.00
--- NOTE | 2024-05-04 10:33 | W.PN.GI.CBS2 ---
Today's Communication / Plan
-
LFTs unchanged with slight rise in T BIli 5.8 -> 6.7. Still without signs of biliary sepsis. Await MRI/MRCP WWO contrast, will likely benefit from ERCP with brushings and/or stent placement. See rest of care as below.
Assessment / Plan
-
This is a 79 y.o female with past medical history of HTN, HLD, COPD, L breast cancer (s/p lumpectomy), non-dysplastic Guadarrama's esophagus, and complicated diverticulitis (s/p Spring's 01/2022, was not a candidate for reversal) who initially
presented with bright red blood in her colostomy bag along with painless jaundice. Labs notable for LFTs with AST 134, ALT 69, ALP 943, and T Bili 5.7. Of note, previous LFTs on 03/16/2024 with a total bilirubin 0.3 AST 36 ALT of 20 and alk phos 107.
CBC with Hgb 11.5 (prev 10s) with WBC 7.[address] Abd/pelvis with WWO IV contrast revealing diffuse intrahepatic bile duct dilation and concern for central obstructing mass arising from the superior margin of the common hepatic duct, and
there is enhancement and thickening of the common hepatic duct inferior to the mass. 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 Otherwise, no signs or symptoms to suggest biliary sepsis
and/or cholangitis.
#Obstructive Jaundice
#Elevated LFTs 2/2 #Concern for Central Obstructing CHD Mass
#Hx Diverticulitis (s/p Spring's) with #Ostomy w/ intermittent bleeding
Recommendations:
- Trend serial LFTs and total fractionated bilirubin
- Tumor markers: AFP 1.51, CEA 1.28, still pending CA 19-9
- Observe off IV abx as without signs of biliary sepsis
- Trend Hgb with serial CBC, no further signs of bleeding from colostomy
- Abdominal MRI/MRCP WWO contrast ordered this AM to better define CHD mass and hepatobiliary anatomy
- No plans for endoscopic intervention at this time, however may need ERCP if there is concern for cholangiocarcinoma (ie ERCP with brushings and placement of stent, etc)
- Appreciate CRS regarding concern for ostomy bleed, seems to be improving / resolved
- Pain control PRN
- Rest of care as outlined below
GI team will continue to follow while inpatient.
Subjective
Subjective
Date of Service: May 04, 2024
- No acute events overnight
Resting comfortable in bed and denies any RUQ abdominal pain or fevers/chills. No further bleeding from colostomy bag.
Objective
Data Reviewed
Laboratory Data:
Laboratory Results
05/04/24 05:46
05/04/24 05:46
Laboratory Results
PT 15.0 Sec (11.4-14.6) H 05/04/24 05:46
INR 1.20 05/04/24 05:46
Total Bilirubin 6.7 mg/dl (0.2-1.3) H 05/04/24 05:46
AST 102 U/L (14-36) H 05/04/24 05:46
ALT 53 U/L (0-35) H 05/04/24 05:46
Alkaline Phosphatase 771 U/L (38-126) H 05/04/24 05:46
Vital Signs and I&O:
Vital Signs
Temp Pulse Resp BP Pulse Ox
97.8 F 58 16 130/58 96
05/04/24 07:30 05/04/24 07:30 05/04/24 07:30 05/04/24 07:30 05/04/24 07:30
I&O
05/03/24 05/04/24 05/05/24
06:59 06:59 05:59
Intake Total 0 / 0 360 / 360
Balance 0 / 0 360 / 360
Physical Exam
Physical Exam
HEENT: Anicteric and Moist mucous membranes
Cardiology: Normal Sinus Rhythm
Pulmonary: Clear and Other (Normal WOB on room air)
GI: Soft, Non Distended, Non Tender and Other (Ostomy bag with pink stoma with brown stool, no obvious blood or clots)
Extremities: No Edema
Neuro: Non Focal
[2024-05-04] MEDS: DIOVAN 40 MG PO (10:54)
[2024-05-04] MEDS: ZOLOFT 50 MG PO (10:54)
--- NOTE | 2024-05-04 13:32 | W.PN.HOSP.TC ---
Today's Communication/Plan
-
Follow MRI report.
Trend LFTs.
Assessment / Plan
Assessment / Plan
#Bleeding from colostomy likely from nodules on the stoma - seems to have resolved - HH stable compared to last month.Appreciate colorectal surgery input-if recurrent bleeding to consider endoscopic eval by GI. Ostomy stoma is healthy.
# Abnormal LFTs with cholestatic hepatitis picture-CT of the abdomen pelvis raises a concern for obstructing mass to the common hepatic duct. GI consulted. MRI abdomen report pending . Patient is without any GI symptoms currently.
-trend LFT's
-CT abdomen pelvis with There is diffuse intrahepatic bile duct dilation. Concern is raised for a central obstructing mass, superior margin of a thickened and enhancing common hepatic duct. Findings are felt to be most suspicious for
cholangiocarcinoma. Main differential consideration of obstructing mass from hepatocellular carcinoma or metastatic disease.Seem unlikely that bile duct inflammation alone could result in this degree of diffuse intrahepatic bile duct dilation.Loss
of definition of the common bile duct within the head of the pancreas, nonspecific. No convincing evidence for a pancreatic head mass lesion.Multiple small lymph nodes in the region of the gastrohepatic ligament as well as the periaortic and
interaortocaval region. These are not enlarged by size criteria, but with still represent neoplastic lymph nodes.Colostomy is present in the left lower abdomen, there is a peristomal hernia contains a portion of colon. This herniated colon contains
diverticula, but no convincing CT evidence for diverticulitis.
Moderate to large hiatal hernia/partially intrathoracic stomach. Adjacent compressive atelectasis in the medial left lower lung.
-will consult colorectal and GI
#anxiety
#Dementia, unspecified
-Risperdal continued
-sertraline continued
#Essential HTN
-valsartan continued
#DVT ppx scd
Full code
Anticipated Discharge: > 48 hours
Subjective/Interval History
-
Date of Service: May 04, 2024
Back for an MRI. Voices no GI symptoms-denies any nausea vomiting or abdominal pain.
Objective Data
-
Labs:
Laboratory Results
05/04/24
05:46
WBC 7.5
Hgb 11.1 L
Hct 31.5 L
Plt Count 235
PT 15.0 H
INR 1.20
Sodium 142
Potassium 3.6
Chloride 109 H
Carbon Dioxide 24
BUN 14
Creatinine 0.9
Glucose 76
Calcium 8.4
Total Bilirubin 6.7 H
AST 102 H
ALT 53 H
Alkaline Phosphatase 771 H
Vital Signs:
Vital Signs
Temp Pulse Resp BP Pulse Ox
97.8 F 64 16 124/59 96
05/04/24 07:30 05/04/24 10:54 05/04/24 07:30 05/04/24 10:54 05/04/24 08:00
I&O
05/03/24 05/04/24 05/05/24
06:59 06:59 05:59
Intake Total 0 / 0 360 / 360
Balance 0 / 0 360 / 360
Review of Systems
-
Constitutional: Denies Fever or Chills
EENT: Denies Sore Throat
Respiratory: Denies Trouble Breathing
Cardiac: Denies Chest Pain
Neuro: Denies Dizzy
Physical Exam
-
General: Comfortable
HEENT: Negative Anicteric (jaundiced)
Respiratory: Clear to Auscultation
Cardiac: Regular Rhythm and S1/S2
GI: Soft and Ostomy (brown stool without blood )
Neuro: AO x 3
Psych: Calm; Negative Confused
Data Reviewed
-
Labs: Labs Reviewed by me
[2024-05-04 15:20] VITALS: BP 114/72
[2024-05-04] MEDS: RISPERDAL 2 MG PO (21:37)
[2024-05-04 23:33] LABS: CA 19-9 54 U/mL (<=35)
[2024-05-04 23:45] VITALS: BP 129/72
[2024-05-05 06:08] LABS: Hematocrit 29.7 % (37.0-47.0); Hemoglobin 10.5 g/dL (12.0-16.0); Mean Corp Hgb Conc. 35.4 g/dL (33.0-37.0); Mean Corpuscular Hgb 30.2 pg (27.0-31.0); Mean Corpuscular Volume 85.3 fL (81.0-99.0); Mean Platelet Volume 12.7 fL (7.4-10.4); Platelet Count 238 10^3/uL (130-400); Red Blood Cell Count 3.48 10^6/uL (4.20-5.40); Red Cell Dist. Width 20.9 % (11.5-14.5); White Blood Cell Count 7.7 10^3/uL (4.8-10.8)
[2024-05-05 06:43] LABS: ALT (SGPT) 51 U/L (0-35); AST (SGOT) 101 U/L (14-36); Albumin 2.5 g/dl (3.5-5.0); Alkaline Phosphatase 706 U/L (38-126); Blood Urea Nitrogen 18 mg/dl (7-17); Calcium 8.4 mg/dl (8.4-10.2); Carbon Dioxide 22 mmol/L (22-30); Chloride 110 mmol/L (98-107); Direct Bilirubin 5.4 mg/dl (0.0-0.4); Estimated Creatinine Clearance 38 ml/min; Glucose 73 mg/dl (70-99); Potassium 3.8 mmol/L (3.5-5.1); Sodium 142 mmol/L (135-145); Total Bilirubin 6.2 mg/dl (0.2-1.3); Total Protein 5.5 g/dl (6.3-8.2)
[2024-05-05 07:54] VITALS: BP 118/87
[2024-05-05] MEDS: DIOVAN 40 MG PO (08:03)
[2024-05-05] MEDS: ZOLOFT 50 MG PO (08:03)
--- NOTE | 2024-05-05 09:16 | W.PN.GI.CBS2 ---
Today's Communication / Plan
-
Reviewed MRI/MRCP with patient at bedside this AM, concerning for cholangiocarcinoma. Will d/w Dr. Clay regarding timing of ERCP with brushings/stent placement. Timing to be determined, but keep NPO at [place]. Still without any concern for cholangitis.
Rest of care as outlined below
Assessment / Plan
-
This is a 79 y.o female with past medical history of HTN, HLD, COPD, L breast cancer (s/p lumpectomy), non-dysplastic Guadarrama's esophagus, and complicated diverticulitis (s/p Spring's 01/2022, was not a candidate for reversal) who initially
presented with bright red blood in her colostomy bag along with painless jaundice. Labs notable for LFTs with AST 134, ALT 69, ALP 943, and T Bili 5.7. Of note, previous LFTs on 03/16/2024 with a total bilirubin 0.3 AST 36 ALT of 20 and alk phos 107.
CBC with Hgb 11.5 (prev 10s) with WBC 7.[address] Abd/pelvis with WWO IV contrast revealing diffuse intrahepatic bile duct dilation and concern for central obstructing mass arising from the superior margin of the common hepatic duct, and
there is enhancement and thickening of the common hepatic duct inferior to the mass. 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 Otherwise, no signs or symptoms to suggest biliary sepsis
and/or cholangitis.
#Obstructive Jaundice #Biliary Obstruction 2/2
#CHD Mass, Stricture (c/f cholangiocarcinoma)
#Elevated CA 19-9
#Hx Diverticulitis (s/p Spring's) with #Ostomy w/ intermittent bleeding
MRI/MCRP 05/04/2024: Prominent intrahepatic ductal dilatation. Circumferential wall thickening with stenosis involving the common hepatic duct and central right and left hepatic ducts with associated mild enhancement. The common bile duct is
otherwise normal in caliber. There is also edema in the pat hepatis, which extends to the bladder fossa where there is also a small amount of pericholecystic fluid. Mild gallbladder wall thickening. Possible gallstone. Differential includes
cholangitis or cholangiocarcinoma, with secondary inflammatory changes extending into the gallbladder fossa, versus primary gallbladder pathology/inflammation with secondary inflammatory stricture of the common hepatic duct
LFTs stable with T Bili 6.7 -> 6.2 with ALP 700s with mild elevations in transaminases. Continues to remain afebrile without leukocytosis or other signs to suggest biliary sepsis. Etiology of CHD mass as seen on CT with thickening and stricture seen
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 CA 19-9 of 54 (although can be elevated in setting of biliary obstruction). She has no symptoms to suggest cholangitis as
mentioned on MRI/MRCP. Much less likely Mirrizi syndrome given small GB stone and without any pain, only painless jaundice. Malignancy is highest on differential.
Recommendations:
- Keep NPO at [place] in case of ERCP
- Trend serial LFTs and total fractionated bilirubin
- Tumor markers: AFP 1.51, CEA 1.28, elevated CA 19-9 54 (although obstructed)
- Continue to observe off IV abx as without signs of biliary sepsis. Low threshold to obtain blood cultures and start IV Zosyn if febrile or other concern for clinical decompensation
- Will d/w with Dr. Clay as patient would benefit from ERCP with both brushings of CHD stricture along with stent placement for biliary decompression. Timing to be determined, but keep NPO at [place] pending procedural availability
- No further signs of bleeding from ostomy, continue to monitor
- Pain control as needed
- Rest of care as outlined below
GI team will continue to follow while inpatient.
Subjective
Subjective
Date of Service: May 05, 2024
- MRI/MCRP 05/04/2024: Prominent intrahepatic ductal dilatation. Circumferential wall thickening with stenosis involving the common hepatic duct and central right and left hepatic ducts with associated mild enhancement. The common bile duct is
otherwise normal in caliber. There is also edema in the pat hepatis, which extends to the bladder fossa where there is also a small amount of pericholecystic fluid. Mild gallbladder wall thickening. Possible gallstone. Differential includes
cholangitis or cholangiocarcinoma, with secondary inflammatory changes extending into the gallbladder fossa, versus primary gallbladder pathology/inflammation with secondary inflammatory stricture of the common hepatic duct
- LFTs stable with T Bili 6.7 -> 6.2 with ALP 700s with mild elevations in transaminases
- Remains afebrile without leukocytosis or other signs to suggest biliary sepsis
Discussed findings of recent MRI/MRCP early this AM. Patient continues to deny any RUQ pain, abdominal discomfort, nausea or vomiting. No fevers, chills or other constitutional symptoms. Denies any further blood from ostomy bag.
Objective
Data Reviewed
Laboratory Data:
Laboratory Results
05/05/24 05:22
05/05/24 05:22
Laboratory Results
PT 15.0 Sec (11.4-14.6) H 05/04/24 05:46
INR 1.20 05/04/24 05:46
Total Bilirubin 6.2 mg/dl (0.2-1.3) H 05/05/24 05:22
AST 101 U/L (14-36) H 05/05/24 05:22
ALT 51 U/L (0-35) H 05/05/24 05:22
Alkaline Phosphatase 706 U/L (38-126) H 05/05/24 05:22
Vital Signs and I&O:
Vital Signs
Temp Pulse Resp BP Pulse Ox
98.5 F 66 18 118/87 95
05/05/24 07:54 05/05/24 08:03 05/05/24 07:54 05/05/24 08:03 05/05/24 07:54
I&O
05/04/24 05/05/24 05/06/24
07:59 06:59 06:59
Intake Total
Balance
Physical Exam
Physical Exam
HEENT: Moist mucous membranes and Other (Scleral icterus)
Cardiology: Normal Sinus Rhythm
Pulmonary: Clear and Other (Normal WOB on room air)
GI: Soft, Non Distended, Non Tender and Other (No RUQ tenderness on exam on palpation, ostomy bag with brown stool without any blood or clots)
Extremities: No Edema and Other (Jaundiced)
Neuro: Non Focal
--- NOTE | 2024-05-05 12:03 | W.PN.HOSP.TC ---
Today's Communication/Plan
-
EUS tomorrow
Follow LFTs
Assessment / Plan
Assessment / Plan
#Bleeding from colostomy likely from nodules on the stoma - seems to have resolved - HH stable compared to last month.Appreciate colorectal surgery input-if recurrent bleeding to consider endoscopic eval by GI. Ostomy stoma is healthy.
# Painless obstructive jaundice
Abnormal LFTs with cholestatic hepatitis picture-CT of the abdomen pelvis raises a concern for obstructing mass to the common hepatic duct. GI consulted.
MRI of the abdomen shows obstruction at the common hepatic duct level. Unclear if it is a biliary obstruction or an external compression from gallbladder.
Patient is without any GI symptoms currently but jaundiced , No N/V/abdo pain nor fevers /leukocytosis -Doubt cholangitis . Hold on abx.
-trend LFT's
- For EUS tomorrow
#anxiety
#Dementia, unspecified
-Risperdal continued
-sertraline continued
#Essential HTN
-valsartan continued
#DVT ppx scd
Full code
Anticipated Discharge: 24 - 48 hours
Subjective/Interval History
-
Date of Service: May 05, 2024
Voicing no specific complaints.
Denies any nausea vomiting or abdominal pain.
Objective Data
-
Labs:
Laboratory Results
05/05/24
05:22
WBC 7.7
Hgb 10.5 L
Hct 29.7 L
Plt Count 238
Sodium 142
Potassium 3.8
Chloride 110 H
Carbon Dioxide 22
BUN 18 H
Creatinine 1.0
Glucose 73
Calcium 8.4
Total Bilirubin 6.2 H
AST 101 H
ALT 51 H
Alkaline Phosphatase 706 H
Vital Signs:
Vital Signs
Temp Pulse Resp BP Pulse Ox
98.5 F 66 18 118/87 95
05/05/24 07:54 05/05/24 08:03 05/05/24 07:54 05/05/24 08:03 05/05/24 07:54
I&O
05/04/24 05/05/24 05/06/24
07:59 06:59 06:59
Intake Total
Balance
Review of Systems
-
Constitutional: Denies Fever or Chills
Respiratory: Denies Trouble Breathing
Cardiac: Denies Chest Pain
Abdomen/GI: Denies Abdominal Pain, Nausea or Vomiting
Neuro: Denies Dizzy
Physical Exam
-
General: Comfortable
HEENT: Negative Anicteric (jaundiced)
GI: Soft, Nontender and No Hepatosplenomegaly
Neuro: AO x 3
Psych: Calm; Negative Confused
Data Reviewed
-
MRI: Report Reviewed by me (MRI abdomen)
Labs: Labs Reviewed by me
[2024-05-05 15:54] VITALS: BP 149/83
[2024-05-05] MEDS: RISPERDAL 2 MG PO (20:02)
[2024-05-05 23:24] VITALS: BP 127/64
[2024-05-06] MEDS: DIOVAN PO (07:14)
[2024-05-06] MEDS: ZOLOFT PO (07:14)
[2024-05-06 07:15] LABS: Hematocrit 31.4 % (37.0-47.0); Hemoglobin 11.1 g/dL (12.0-16.0); Mean Corp Hgb Conc. 35.4 g/dL (33.0-37.0); Mean Corpuscular Hgb 30.4 pg (27.0-31.0); Mean Platelet Volume 12.2 fL (7.4-10.4); Platelet Count 250 10^3/uL (130-400); Red Blood Cell Count 3.65 10^6/uL (4.20-5.40); Red Cell Dist. Width 20.7 % (11.5-14.5); White Blood Cell Count 8.3 10^3/uL (4.8-10.8)
[2024-05-06 07:34] VITALS: BP 144/69
[2024-05-06 07:56] LABS: ALT (SGPT) 55 U/L (0-35); AST (SGOT) 113 U/L (14-36); Albumin 2.7 g/dl (3.5-5.0); Alkaline Phosphatase 812 U/L (38-126); Blood Urea Nitrogen 18 mg/dl (7-17); Calcium 8.6 mg/dl (8.4-10.2); Carbon Dioxide 22 mmol/L (22-30); Chloride 110 mmol/L (98-107); Estimated Creatinine Clearance 38 ml/min; Glucose 76 mg/dl (70-99); Potassium 3.8 mmol/L (3.5-5.1); Sodium 144 mmol/L (135-145); Total Bilirubin 6.8 mg/dl (0.2-1.3); Total Protein 6.2 g/dl (6.3-8.2)
--- NOTE | 2024-05-06 11:54 | W.PN.HOSP.TC ---
Today's Communication/Plan
-
tentative EUS today
Assessment / Plan
Assessment / Plan
Assessment:
Bleeding from colostomy likely from nodules on the stoma
- self-resolved
- appreciate CRS input
- if recurrent bleeding, then recommending GI eval for endoscopic eval. Outer stoma healthy
Painless obstructive jaundice
Abnormal LFTs with cholestatic hepatitis picture
- CT: diffuse intrahepatic bile duct dilation. Concern is raised for a central obstructing mass, superior margin of a thickened and enhancing common hepatic duct. Findings are felt to be most suspicious for cholangiocarcinoma. Main differential
consideration of obstructing mass from hepatocellular carcinoma or metastatic disease. Multiple small lymph nodes in the region of the gastrohepatic ligament as well as the periaortic and interaortocaval region. These are not enlarged by size
criteria, but with still represent neoplastic lymph nodes.
- MRI: Prominent intrahepatic ductal dilatation. Circumferential wall thickening with stenosis involving the common hepatic duct and central right and left hepatic ducts with associated mild enhancement. The common bile duct is otherwise normal in
caliber. There is also edema in the pat hepatis, which extends to the bladder fossa where there is also a small amount of pericholecystic fluid. Mild gallbladder wall thickening. Possible gallstone. Differential includes cholangitis or
cholangiocarcinoma, with secondary inflammatory changes extending into the gallbladder fossa, versus primary gallbladder pathology/inflammation with secondary inflammatory stricture of the common hepatic duct (Mirizzi syndrome without an
apparent/large impacted gallstone, though there may be a small gallstone).
- no abd pain/fevers/leukocytosis; holding off Abx.
- GI following
- EUS planned tentatively today pending schedule/availability
- follow LFTs
Anxiety
Dementia, unspecified
- Risperdal continued
- sertraline continued
Essential HTN
- valsartan continued
DVT ppx: SCDs
Code: Full
Anticipated Discharge: 24 - 48 hours
Subjective/Interval History
-
Date of Service: May 06, 2024
no new complaints at present
Objective Data
-
Labs:
Laboratory Results
05/06/24
06:54
WBC 8.3
Hgb 11.1 L
Hct 31.4 L
Plt Count 250
Sodium 144
Potassium 3.8
Chloride 110 H
Carbon Dioxide 22
BUN 18 H
Creatinine 1.0
Glucose 76
Calcium 8.6
Total Bilirubin 6.8 H
AST 113 H
ALT 55 H
Alkaline Phosphatase 812 H
Vital Signs:
Vital Signs
Temp Pulse Resp BP Pulse Ox
98.0 F 59 18 144/69 95
05/06/24 07:34 05/06/24 07:34 05/06/24 07:34 05/06/24 07:34 05/06/24 07:34
I&O
05/05/24 05/06/24 05/07/24
06:59 06:59 06:59
Intake Total 720 / 720
Balance 720 / 720
Physical Exam
-
General: No Apparent Distress
HEENT: Normocephalic and Atraumatic
Respiratory: Negative Wheezes
Cardiac: Regular Rhythm and S1/S2
GI: Soft
Genito-urinary: No Costovertebral Tender
Skin: Jaundice
Neuro: AO x 3
Psych: Calm
Data Reviewed
-
Total Time Spent with Patient (in minutes): 45
Labs: Labs Reviewed by me
[2024-05-06 14:44] VITALS: BP 132/74
--- NOTE | 2024-05-06 15:55 | CM ---
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
Pt is forgetful.
Pt has sister .
Pt for EUS tomorrow.
PLAN Return to [facility] at me.
--- NOTE | 2024-05-06 16:45 | PTCARENOTE ---
Pt not having ERCP done today. Plan to have pt NPO midnight tonight and have ERCP tomorrow. Pt placed back on regular diet as tolerated. Pt tolerating oral fluids and regular tray for dinner. Pt w/ no complaints all day. Has been ambulating to
bathroom w/ standby assist and spent a few hours up in the chair.
--- NOTE | 2024-05-06 19:16 | W.PN.GI.CBS2 ---
Today's Communication / Plan
-
Did not see patient on 05/06, see previous documentation from 05/08.
Assessment / Plan
-
This is a 79 y.o female with past medical history of HTN, HLD, COPD, L breast cancer (s/p lumpectomy), non-dysplastic Guadarrama's esophagus, and complicated diverticulitis (s/p Spring's 01/2022, was not a candidate for reversal) who initially
presented with bright red blood in her colostomy bag along with painless jaundice. Labs notable for LFTs with AST 134, ALT 69, ALP 943, and T Bili 5.7. Of note, previous LFTs on 03/16/2024 with a total bilirubin 0.3 AST 36 ALT of 20 and alk phos 107.
CBC with Hgb 11.5 (prev 10s) with WBC 7.[address] Abd/pelvis with WWO IV contrast revealing diffuse intrahepatic bile duct dilation and concern for central obstructing mass arising from the superior margin of the common hepatic duct, and
there is enhancement and thickening of the common hepatic duct inferior to the mass. 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 Otherwise, no signs or symptoms to suggest biliary sepsis
and/or cholangitis.
#Obstructive Jaundice #Biliary Obstruction /
#CHD Mass, Stricture (c/f cholangiocarcinoma)
#Elevated CA 19-9
#Hx Diverticulitis (s/p Spring's) with #Ostomy w/ intermittent bleeding
MRI/MCRP 05/04/2024: Prominent intrahepatic ductal dilatation. Circumferential wall thickening with stenosis involving the common hepatic duct and central right and left hepatic ducts with associated mild enhancement. The common bile duct is
otherwise normal in caliber. There is also edema in the pat hepatis, which extends to the bladder fossa where there is also a small amount of pericholecystic fluid. Mild gallbladder wall thickening. Possible gallstone. Differential includes
cholangitis or cholangiocarcinoma, with secondary inflammatory changes extending into the gallbladder fossa, versus primary gallbladder pathology/inflammation with secondary inflammatory stricture of the common hepatic duct
LFTs stable with T Bili 6.7 -> 6.2 with ALP 700s with mild elevations in transaminases. Continues to remain afebrile without leukocytosis or other signs to suggest biliary sepsis. Etiology of CHD mass as seen on CT with thickening and stricture seen
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 CA 19-9 of 54 (although can be elevated in setting of biliary obstruction). She has no symptoms to suggest cholangitis as
mentioned on MRI/MRCP. Much less likely Mirrizi syndrome given small GB stone and without any pain, only painless jaundice. Malignancy is highest on differential.
Recommendations:
- Keep NPO at [place] in case of ERCP
- Trend serial LFTs and total fractionated bilirubin
- Tumor markers: AFP 1.51, CEA 1.28, elevated CA 19-9 54 (although obstructed)
- Continue to observe off IV abx as without signs of biliary sepsis. Low threshold to obtain blood cultures and start IV Zosyn if febrile or other concern for clinical decompensation
- Will d/w with Dr. Clay as patient would benefit from ERCP with both brushings of CHD stricture along with stent placement for biliary decompression. Timing to be determined, but keep NPO at [place] pending procedural availability
- No further signs of bleeding from ostomy, continue to monitor
- Pain control as needed
- Rest of care as outlined below
GI team will continue to follow while inpatient.
Subjective
Subjective
Date of Service: May 06, 2024
Objective
Data Reviewed
Laboratory Data:
Laboratory Results
05/06/24 06:54
05/06/24 06:54
Laboratory Results
PT 15.0 Sec (11.4-14.6) H 05/04/24 05:46
INR 1.20 05/04/24 05:46
Total Bilirubin 6.8 mg/dl (0.2-1.3) H 05/06/24 06:54
AST 113 U/L (14-36) H 05/06/24 06:54
ALT 55 U/L (0-35) H 05/06/24 06:54
Alkaline Phosphatase 812 U/L (38-126) H 05/06/24 06:54
Vital Signs and I&O:
Vital Signs
Temp Pulse Resp BP Pulse Ox
97.6 F 64 18 132/74 99
05/06/24 14:44 05/06/24 14:44 05/06/24 14:44 05/06/24 14:44 05/06/24 14:44
I&O
05/05/24 05/06/24 05/07/24
06:59 06:59 06:59
Intake Total 720 / 720
Balance 720 / 720
--- NOTE | 2024-05-06 19:17 | W.PN.UPDATE ---
Update Note
Progress Note Update
UPDATE NOTE:
Discussed with patient earlier today, plan for ERCP tomorrow with Dr. Clay given procedural availability. Keep NPO at [place] for ERCP tomorrow, 05/07/2024.
[2024-05-06] MEDS: RISPERDAL 2 MG PO (21:51)
[2024-05-06 23:56] VITALS: BP 105/71
[2024-05-07] VITALS (12 sets, daily range): BP systolic 95–142; BP diastolic 46–75; PULSE 60–62; O2SAT 97
[2024-05-07 07:34] LABS: ALT (SGPT) 54 U/L (0-35); AST (SGOT) 111 U/L (14-36); Albumin 2.8 g/dl (3.5-5.0); Alkaline Phosphatase 808 U/L (38-126); Blood Urea Nitrogen 21 mg/dl (7-17); Calcium 8.3 mg/dl (8.4-10.2); Carbon Dioxide 23 mmol/L (22-30); Chloride 107 mmol/L (98-107); Estimated Creatinine Clearance 35 ml/min; Glucose 71 mg/dl (70-99); Hematocrit 30.1 % (37.0-47.0); Hemoglobin 10.5 g/dL (12.0-16.0); Mean Corp Hgb Conc. 34.9 g/dL (33.0-37.0); Mean Corpuscular Hgb 29.2 pg (27.0-31.0); Mean Corpuscular Volume 83.8 fL (81.0-99.0); Mean Platelet Volume 12.3 fL (7.4-10.4); Platelet Count 240 10^3/uL (130-400); Potassium 3.9 mmol/L (3.5-5.1); Red Blood Cell Count 3.59 10^6/uL (4.20-5.40); Red Cell Dist. Width 20.8 % (11.5-14.5); Sodium 142 mmol/L (135-145); Total Bilirubin 6.7 mg/dl (0.2-1.3); Total Protein 6.1 g/dl (6.3-8.2); White Blood Cell Count 7.9 10^3/uL (4.8-10.8); eGFR 50.48
[2024-05-07] MEDS: ZOLOFT 50 MG PO (08:30)
[2024-05-07] MEDS: DIOVAN 40 MG PO (08:30)
--- NOTE | 2024-05-07 09:10 | W.PN.HOSP.TC ---
Today's Communication/Plan
-
NPO for EUS/ERCP procedure today
Assessment / Plan
Assessment / Plan
Assessment:
Bleeding from colostomy likely from nodules on the stoma
- self-resolved
- appreciate CRS input
- if recurrent bleeding, then recommending GI eval for endoscopic eval. Outer stoma healthy
Painless obstructive jaundice
Abnormal LFTs with cholestatic hepatitis picture
- CT: diffuse intrahepatic bile duct dilation. Concern is raised for a central obstructing mass, superior margin of a thickened and enhancing common hepatic duct. Findings are felt to be most suspicious for cholangiocarcinoma. Main differential
consideration of obstructing mass from hepatocellular carcinoma or metastatic disease. Multiple small lymph nodes in the region of the gastrohepatic ligament as well as the periaortic and interaortocaval region. These are not enlarged by size
criteria, but with still represent neoplastic lymph nodes.
- MRI: Prominent intrahepatic ductal dilatation. Circumferential wall thickening with stenosis involving the common hepatic duct and central right and left hepatic ducts with associated mild enhancement. The common bile duct is otherwise normal in
caliber. There is also edema in the pat hepatis, which extends to the bladder fossa where there is also a small amount of pericholecystic fluid. Mild gallbladder wall thickening. Possible gallstone. Differential includes cholangitis or
cholangiocarcinoma, with secondary inflammatory changes extending into the gallbladder fossa, versus primary gallbladder pathology/inflammation with secondary inflammatory stricture of the common hepatic duct (Mirizzi syndrome without an
apparent/large impacted gallstone, though there may be a small gallstone).
- no abd pain/fevers/leukocytosis; holding off Abx.
- GI following
- EUS/ERCP today
- follow LFTs
Anxiety
Dementia, unspecified
- Risperdal continued
- sertraline continued
Essential HTN
- valsartan continued
DVT ppx: SCDs
Code: Full
Anticipated Discharge: 24 - 48 hours
Subjective/Interval History
-
Date of Service: May 07, 2024
denies any new complaints
for ERCP/EUS today
Objective Data
-
Labs:
Laboratory Results
05/07/24
06:03
WBC 7.9
Hgb 10.5 L
Hct 30.1 L
Plt Count 240
Sodium 142
Potassium 3.9
Chloride 107
Carbon Dioxide 23
BUN 21 H
Creatinine 1.1 H
Glucose 71
Calcium 8.3 L
Total Bilirubin 6.7 H
AST 111 H
ALT 54 H
Alkaline Phosphatase 808 H
Vital Signs:
Vital Signs
Temp Pulse Resp BP Pulse Ox
97.7 F 55 18 122/61 96
05/07/24 07:23 05/07/24 08:30 05/07/24 07:23 05/07/24 08:30 05/07/24 07:23
I&O
05/06/24 05/07/24 05/08/24
06:59 06:59 06:59
Intake Total 720 / 720 0 / 0
Balance 720 / 720 0 / 0
Physical Exam
-
General: No Apparent Distress
HEENT: Normocephalic and Atraumatic
Respiratory: Negative Wheezes
Cardiac: Regular Rhythm and S1/S2
GI: Soft and Nontender
Skin: Jaundice
Neuro: AO x 3
Hematologic / Lymphatic: No Lymphadenopathy
Psych: Calm
Data Reviewed
-
Total Time Spent with Patient (in minutes): 42
Labs: Labs Reviewed by me
[2024-05-07] MEDS: RISPERDAL 2 MG PO (21:44)
--- NOTE | 2024-05-08 05:54 | W.PN.GI.CBS2 ---
Today's Communication / Plan
-
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 Repeat LFTs improving without concern for PEP. Path results pending, to be f/u as outpatient along with
Oncology referral. See rest of care as below. GI will sign-off, please call back with any questions or concerns.
Assessment / Plan
-
This is a 79 y.o female with past medical history of HTN, HLD, COPD, L breast cancer (s/p lumpectomy), non-dysplastic Guadarrama's esophagus, and complicated diverticulitis (s/p Spring's 01/2022, was not a candidate for reversal) who initially
presented with bright red blood in her colostomy bag along with painless jaundice. Labs notable for LFTs with AST 134, ALT 69, ALP 943, and T Bili 5.7. Of note, previous LFTs on 03/16/2024 with a total bilirubin 0.3 AST 36 ALT of 20 and alk phos 107.
CBC with Hgb 11.5 (prev 10s) with WBC 7.[address] Abd/pelvis with WWO IV contrast revealing diffuse intrahepatic bile duct dilation and concern for central obstructing mass arising from the superior margin of the common hepatic duct, and
there is enhancement and thickening of the common hepatic duct inferior to the mass. 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 Otherwise, no signs or symptoms to suggest biliary sepsis
and/or cholangitis.
#Obstructive Jaundice #Biliary Obstruction 2/2
#CHD Mass, Stricture (c/f cholangiocarcinoma)
#Elevated CA 19-9
#Hx Diverticulitis (s/p Spring's) with #Ostomy w/ intermittent bleeding
MRI/MCRP 05/04/2024: Prominent intrahepatic ductal dilatation. Circumferential wall thickening with stenosis involving the common hepatic duct and central right and left hepatic ducts with associated mild enhancement. The common bile duct is
otherwise normal in caliber. There is also edema in the pat hepatis, which extends to the bladder fossa where there is also a small amount of pericholecystic fluid. Mild gallbladder wall thickening. Possible gallstone. Differential includes
cholangitis or cholangiocarcinoma, with secondary inflammatory changes extending into the gallbladder fossa, versus primary gallbladder pathology/inflammation with secondary inflammatory stricture of the common hepatic duct
LFTs stable with T Bili 6.7 -> 6.2 with ALP 700s with mild elevations in transaminases. Continues to remain afebrile without leukocytosis or other signs to suggest biliary sepsis. Etiology of CHD mass as seen on CT with thickening and stricture seen
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 CA 19-9 of 54 (although can be elevated in setting of biliary obstruction). She has no symptoms to suggest cholangitis as
mentioned on MRI/MRCP. Much less likely Mirrizi syndrome given small GB stone and without any pain, only painless jaundice. Malignancy is highest on differential.
S/p ERCP 05/07/2024: Frond-like nodularity and increased vascular pattern of the CHD, bifurcation and R main hepatic duct during spyglass cholangioscopy, severe biliary stricture found in the CHD, left and right main hepatic duct with malignant
appearance, managed with biliary sphincterotomy with biopsies of the bifurcation of the stricture and placement of plastic stents (one in both the R and L main systems)
Recommendations:
- Tolerating CLD, may ADAT to low-fat diet if tolerating CLD for breakfast
- Repeat LFTs improving, recommend repeat LFTs in 1-2 weeks as outpatient
- Tumor markers: AFP 1.51, CEA 1.28, elevated CA 19-9 54 (although obstructed)
- Await pathology results from ERCP. Dr. Clay will f/u pathology results as outpatient along with timing of next ERCP for stent change once path results have been reviewed
- Patient being discharged to SNF with plans for outpatient referral to Oncology
- No further signs of bleeding from ostomy, continue to monitor
- Rest of care as per primary team
Discussed with internal medicine team this AM. GI team will sign-off. Please call back with any questions or concerns.
Subjective
Subjective
Date of Service: May 08, 2024
- S/p ERCP 05/07/2024: Frond-like nodularity and increased vascular pattern of the CHD, bifurcation and R main hepatic duct during spyglass cholangioscopy, severe biliary stricture found in the CHD, left and right main hepatic duct with malignant
appearance, managed with biliary sphincterotomy with biopsies of the bifurcation of the stricture and placement of plastic stents (one in both the R and L main systems)
- Repeat LFTs this down-trending after stent
Feeling well, resting comfortable. Denies any epigastric pain, abdominal discomfort, nausea or vomiting. Discussed findings of ERCP with patient at bedside this AM. No other fevers, chills or other constitutional symptoms.
Objective
Data Reviewed
Laboratory Data:
Laboratory Results
PT 15.0 Sec (11.4-14.6) H 05/04/24 05:46
INR 1.20 05/04/24 05:46
Total Bilirubin 6.7 mg/dl (0.2-1.3) H 05/07/24 06:03
AST 111 U/L (14-36) H 05/07/24 06:03
ALT 54 U/L (0-35) H 05/07/24 06:03
Alkaline Phosphatase 808 U/L (38-126) H 05/07/24 06:03
Vital Signs and I&O:
Vital Signs
Temp Pulse Resp BP Pulse Ox
97.5 F 75 17 108/60 96
05/07/24 23:00 05/07/24 23:00 05/07/24 23:00 05/07/24 23:00 05/07/24 23:00
I&O
05/06/24 05/07/24 05/08/24
06:59 06:59 06:59
Intake Total 720 / 720 0 / 0
Balance 720 / 720 0 / 0
Physical Exam
Physical Exam
HEENT: Moist mucous membranes and Other (Scleral icterus)
Cardiology: Normal Sinus Rhythm
Pulmonary: Other (Normal WOB on room air)
GI: Soft, Non Distended and Non Tender
Extremities: No Edema
Neuro: Non Focal
[2024-05-08 07:17] LABS: Hematocrit 29.5 % (37.0-47.0); Hemoglobin 10.2 g/dL (12.0-16.0); Mean Corp Hgb Conc. 34.6 g/dL (33.0-37.0); Mean Corpuscular Hgb 29.6 pg (27.0-31.0); Mean Corpuscular Volume 85.5 fL (81.0-99.0); Mean Platelet Volume 12.9 fL (7.4-10.4); Platelet Count 273 10^3/uL (130-400); Red Blood Cell Count 3.45 10^6/uL (4.20-5.40); Red Cell Dist. Width 20.4 % (11.5-14.5); White Blood Cell Count 10.7 10^3/uL (4.8-10.8)
[2024-05-08 07:56] VITALS: BP 117/60
[2024-05-08 08:04] LABS: ALT (SGPT) 49 U/L (0-35); AST (SGOT) 94 U/L (14-36); Albumin 2.7 g/dl (3.5-5.0); Alkaline Phosphatase 679 U/L (38-126); Blood Urea Nitrogen 21 mg/dl (7-17); Calcium 8.4 mg/dl (8.4-10.2); Carbon Dioxide 22 mmol/L (22-30); Chloride 107 mmol/L (98-107); Estimated Creatinine Clearance 42 ml/min; Glucose 101 mg/dl (70-99); Potassium 4.2 mmol/L (3.5-5.1); Sodium 140 mmol/L (135-145); Total Bilirubin 4.9 mg/dl (0.2-1.3); Total Protein 5.8 g/dl (6.3-8.2); eGFR > 60.00
[2024-05-08] MEDS: ZOLOFT 50 MG PO (08:43)
[2024-05-08] MEDS: DIOVAN 40 MG PO (08:43)
--- NOTE | 2024-05-08 09:25 | W.PN.HOSP.TC ---
Addendum entered and electronically signed by Mary Jessica MD 05/08/24 09:38:
More than 30 minutes spent in discharge including
Final examination of the patient
Summarizing hospital stay
Instructions for continuing care to all relevant caregivers
Preparation of discharge records, prescriptions, and referral forms
Total time spent (in minutes): 41
Original Note:
Today's Communication/Plan
-
dc to SNF
Assessment / Plan
Assessment / Plan
Assessment:
Bleeding from colostomy likely from nodules on the stoma
- self-resolved
- appreciate CRS input
- if recurrent bleeding, then recommending GI eval for endoscopic eval. Outer stoma healthy
Painless obstructive jaundice
Abnormal LFTs with cholestatic hepatitis picture
- CT: diffuse intrahepatic bile duct dilation. Concern is raised for a central obstructing mass, superior margin of a thickened and enhancing common hepatic duct. Findings are felt to be most suspicious for cholangiocarcinoma. Main differential
consideration of obstructing mass from hepatocellular carcinoma or metastatic disease. Multiple small lymph nodes in the region of the gastrohepatic ligament as well as the periaortic and interaortocaval region. These are not enlarged by size
criteria, but with still represent neoplastic lymph nodes.
- MRI: Prominent intrahepatic ductal dilatation. Circumferential wall thickening with stenosis involving the common hepatic duct and central right and left hepatic ducts with associated mild enhancement. The common bile duct is otherwise normal in
caliber. There is also edema in the pat hepatis, which extends to the bladder fossa where there is also a small amount of pericholecystic fluid. Mild gallbladder wall thickening. Possible gallstone. Differential includes cholangitis or
cholangiocarcinoma, with secondary inflammatory changes extending into the gallbladder fossa, versus primary gallbladder pathology/inflammation with secondary inflammatory stricture of the common hepatic duct (Mirizzi syndrome without an
apparent/large impacted gallstone, though there may be a small gallstone).
- no abd pain/fevers/leukocytosis; holding off Abx.
- s/p ERCP with biliary dilation and stenting
- biopies pending
- LFTS improving
- OP GI and Onc f/u
Anxiety
Dementia, unspecified
- Risperdal continued
- sertraline continued
Essential HTN
- valsartan continued
DVT ppx: SCDs
Code: Full
Anticipated Discharge: Today
Subjective/Interval History
-
Date of Service: May 08, 2024
denies any new complaints
tolerating clears
Objective Data
-
Labs:
Laboratory Results
05/08/24
07:06
WBC 10.7
Hgb 10.2 L
Hct 29.5 L
Plt Count 273
Sodium 140
Potassium 4.2
Chloride 107
Carbon Dioxide 22
BUN 21 H
Creatinine 0.9
Glucose 101 H
Calcium 8.4
Total Bilirubin 4.9 H
AST 94 H
ALT 49 H
Alkaline Phosphatase 679 H
Vital Signs:
Vital Signs
Temp Pulse Resp BP Pulse Ox
97.9 F 70 18 117/60 96
05/08/24 07:56 05/08/24 08:43 05/08/24 07:56 05/08/24 08:43 05/08/24 07:56
I&O
05/07/24 05/08/24 05/09/24
06:59 06:59 06:59
Intake Total 0 / 0 0 / 0
Balance 0 / 0 0 / 0
Physical Exam
-
General: No Apparent Distress
HEENT: Normocephalic and Atraumatic
Respiratory: Negative Wheezes
Cardiac: Regular Rhythm and S1/S2
Skin: Jaundice
Neuro: AO x 3
Psych: Calm
Data Reviewed
-
Total Time Spent with Patient (in minutes): 41
Labs: Labs Reviewed by me
--- NOTE | 2024-05-08 09:37 | W.DS.TRANS ---
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
-
Discharge Instructions:
Discharge Diagnosis/Procedures obstructive jaundice, biliary stricture,
concerning for cancer
Diet Regular
Activity As tolerated
Instructions:
Stand-Alone Forms:
Changes to Home Medications: No
Discharge Medications:
DC Medications w/original date entered in [employer]
nitroglycerin 0.4 mg sublingual tablet 0.4 mg sublingual [id number] PRN CP #30 tabs 02/20/24
polyvinyl alcohol-povidone (PF) 1.4 %-0.6 % eye drops in a dropperette (Refresh Classic (PF)) 1 drops BOTH EYES QIDPRN PRN dry eyes #5 ea 02/20/24
acetaminophen 325 mg tablet (Tylenol) 650 mg PO Q4HPRN PRN mild pain/temp >100 05/02/24
bisacodyl 10 mg rectal suppository (Dulcolax (bisacodyl)) 10 mg RI DAILYPRN PRN mom ineffective after 24 hours 05/02/24
magnesium hydroxide 400 mg/5 mL oral suspension (Milk of Magnesia) 30 ml PO [id number] PRN no bm 3 days 05/02/24
risperidone 2 mg tablet 2 mg PO HS Mental Health/Anxiety 05/02/24
sertraline 50 mg tablet 50 mg PO DAILY Depression 05/02/24
sodium phosphates 19 gram-7 gram/118 mL enema (Fleet Enema) 118 ml RI DAILYPRN PRN if dulcolax ineffective after 24 hours 05/02/24
therapeutic multivitamin 1 tab PO DAILY Supplement 05/02/24
valsartan 40 mg tablet 40 mg PO DAILY Blood Pressure 05/02/24
Home Medication Changes
Pending Results: No
Total time spent discharging patient (in min): 41
--- NOTE | 2024-05-08 10:08 | CM ---
entered order for discharge.
Pt lives senior care at [facility] for last 2 month.
Spoke with [facility] liaison for [facility] pt has bed hold.Pt care return today.
Pt is forgetful.Dementia.
Spoke with sister Latosha she agrees with [facility] and dc to SNf today.
Medical nec form completed for transportation.
[facility]
report [phone]
fax [phone]
[place]AN [place] [facility] [place]
--- NOTE | 2024-05-08 11:43 | PTCARENOTE ---
Addendum entered by Kamila Hameed RN 05/08/24 12:36:
Called twice more without success in getting in touch with [facility] staff for report. Spoke to rn case management who stated that the staff will call me for report. Patient left via ambulance on stretcher. Copies of chart sent with patient.
Original Note:
Attempted to call report to [facility] twice without any answering. Will verify correct number and attempt again.
[2024-05-08 12:11] VITALS: BP 102/68
== END 2024-05-08 12:40 | DRG 435 ==
LOC: 4 EAST ACU 22:20
PROVIDERS: Emergency Medicine; Internal Medicine Gastroenterology; Nurse Practitioner; Registered Nurse; ADMITTING PHYSICIAN Hospitalist; ATTENDING PHYSICIAN Internal Medicine; CONSULT PHYSICIAN Student in an Organized Health Care Education/Training Program; EMERGENCY PHYSICIAN Emergency Medicine; OTHER PHYSICIAN Surgery
PROC: 0F758DZ Dilation of Right Hepatic Duct with Intraluminal Device, Via Natural or Artificial Opening Endoscopic (ICD-10-PCS; 2024-05-07)
PROC: 0FB98ZX Excision of Common Bile Duct, Via Natural or Artificial Opening Endoscopic, Diagnostic (ICD-10-PCS; 2024-05-07)
PROC: 0F768DZ Dilation of Left Hepatic Duct with Intraluminal Device, Via Natural or Artificial Opening Endoscopic (ICD-10-PCS; 2024-05-07)
DX: C22.1 Intrahepatic bile duct carcinoma (principal); K83.1 Obstruction of bile duct; K94.01 Colostomy hemorrhage; F03.94 Unspecified dementia, unspecified severity, with anxiety; E78.00 Pure hypercholesterolemia, unspecified; J44.9 Chronic obstructive pulmonary disease, unspecified; I10 Essential (primary) hypertension; F17.210 Nicotine dependence, cigarettes, uncomplicated; I48.0 Paroxysmal atrial fibrillation; K21.9 Gastro-esophageal reflux disease without esophagitis; Z87.19 Personal history of other diseases of the digestive system; Z90.49 Acquired absence of other specified parts of digestive tract; Z85.41 Personal history of malignant neoplasm of cervix uteri; Z85.3 Personal history of malignant neoplasm of breast; Z79.899 Other long term (current) drug therapy
CPT/HCPCS: 88305; 74174; 74183; 74330; 76000; 80053; 82105; 82248; 82378; 85025; 85027; 85610; 86301; 88341; 88342; 96360; 97161; 97166; 99285; 99406; A9575; C1726; C1769; C2617; Q9967

== ENCOUNTER → 2024-05-15 16:08 | Outpatient (REF) | payer MEDICARE, SELFPAY ==
[2024-05-15 12:19] LABS: % Basophils 0.7 % (0-2); % Eosinophils 3.1 % (0-6); % Immature Granulocytes 0.2 % (0-0.5); % Lymphocytes 9.7 % (20.5-51.1); % Monocytes 12.3 % (1.7-9.3); Absolute Basophils 0.1 10^3/uL (0-0.2); Absolute Eosinophils 0.3 10^3/uL (0-0.7); Absolute Lymphocytes 0.9 10^3/uL (1.2-3.4); Absolute Monocytes 1.1 10^3/uL (0.1-0.6); Absolute Neutrophils 6.7 10^3/uL (1.4-6.5); Hematocrit 33.5 % (37.0-47.0); Hemoglobin 10.9 g/dL (12.0-16.0); Mean Corp Hgb Conc. 32.5 g/dL (33.0-37.0); Mean Corpuscular Hgb 29.9 pg (27.0-31.0); Mean Corpuscular Volume 91.8 fL (81.0-99.0); Mean Platelet Volume 11.7 fL (7.4-10.4); Platelet Count 321 10^3/uL (130-400); Red Blood Cell Count 3.65 10^6/uL (4.20-5.40); Red Cell Dist. Width 18.4 % (11.5-14.5)
[2024-05-15 15:44] LABS: ALT (SGPT) 42 U/L (0-35); AST (SGOT) 69 U/L (14-36); Albumin 3.1 g/dl (3.5-5.0); Alkaline Phosphatase 548 U/L (38-126); Blood Urea Nitrogen 21 mg/dl (7-17); Carbon Dioxide 23 mmol/L (22-30); Chloride 105 mmol/L (98-107); Glucose 77 mg/dl (70-99); Potassium 3.8 mmol/L (3.5-5.1); Sodium 140 mmol/L (135-145); Total Bilirubin 2.3 mg/dl (0.2-1.3); Total Protein 6.4 g/dl (6.3-8.2); eGFR 41.31
== END ==
LOC: OIDL 16:08
PROVIDERS: ATTENDING PHYSICIAN Internal Medicine Hematology & Oncology
DX: C22.1 Intrahepatic bile duct carcinoma (principal)
CPT/HCPCS: 80053; 85025

== ENCOUNTER 2024-08-14 06:14 | Day surgery (SDC) | payer MEDICARE, SELFPAY ==
[2024-08-14 09:15] VITALS: BMI 29.3
[2024-08-14 09:20] VITALS: BP 125/65
[2024-08-14 09:26] VITALS: BMI 29.3
[2024-08-14 12:15] VITALS: BP 126/65
[2024-08-14 12:16] VITALS: BP 95/54
[2024-08-14 13:11] VITALS: BP 106/46
[2024-08-14 13:35] VITALS: BP 115/54
[2024-08-14 14:50] VITALS: BP 137/70
== END 2024-08-14 15:36 | disposition home or self-care (01) ==
LOC: GI 06:14
PROVIDERS: ATTENDING PHYSICIAN Internal Medicine Gastroenterology
DX: C22.1 Intrahepatic bile duct carcinoma (principal); K83.1 Obstruction of bile duct; K83.8 Other specified diseases of biliary tract; Z46.59 Encounter for fitting and adjustment of other gastrointestinal appliance and device; Z96.89 Presence of other specified functional implants
CPT/HCPCS: 43276; 74330; 76000; C1769; C2617